=== PATIENT | male | born 1955 | race Hispanic/Latino ===

== ENCOUNTER 2019-12-20 17:21 | Emergency (ER) | payer OTHER ==
--- OUTSIDE RECORDS SUMMARY | 2019-12-20 17:23 | XMS REPORT | Clinical Summary ---
:1955 Author Organization [facility] Address [address] [place] [address] Care Team Providers Name Role Phone Patric Zimmerman MD Primary Care Provider Allergies No Known Allergies Medications Medication Sig Dispensed Refills Start Date End Date Status carvedilol (COREG) Take 12.5 mg by 0 Active 6.25 MG tablet mouth 2 (two) times a day. cinacalcet Take 60 mg by mouth 0 08/02/2016 Active (SENSIPAR) 30 MG daily. tablet furosemide (LASIX) Take 20 mg by mouth. 0 08/02/2016 Active 20 mg tablet mycophenolate 500 mg. 0 06/29/2016 Activ e (CELLCEPT) 500 mg tablet predniSONE Take 5 mg by mouth. 0 Active (DELTASONE) 10 mg tablet SODIUM BICARBONATE, by Miscellaneous 0 Active BULK, MISC route 3 teaspoons daily. sulfamethoxazole-tri Take 1 tablet by 0 Active methoprim (BACTRIM mouth. SS) 400-80 mg per tablet tacrolimus (PROGRAF) 2 (two) times daily 0 7 Active 0.5 MG capsule 1.5mg in am and 2.0mg in pm. 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
--- OUTSIDE RECORDS SUMMARY | 2019-12-20 17:23 | XMS REPORT | Clinical Summary ---
:1955 Author Organization [facility] Address [address] [place] [address] Care Team Providers Name Role Phone Ilana Duarte Unavailable Patric Zimmerman Unavailable [phone] Papi Zimmerman Primary Care Provider Allergies No Known Allergies Medications Medication Sig Dispensed Refills Start Date End Date Status torsemide (DEMADEX) Take 1 tablet 90 tablet 3 07/28/2017 Active 10 MG tablet (10 mg total) by mouth daily. metoprolol Take 1 tablet 90 tablet 3 08/24/2017 Acti ve (TOPROL-XL) 50 MG 24 (50 mg total) by hr mouth daily. tabletIndications: S/P kidney transplant NIFEdipine (ADALAT Take 1 tablet 60 tablet 0 04/13/2018 Active CC) 60 MG 24 hr (60 mg total) by tabletIndications: mouth 2 (two) S/P kidney times daily with transplant breakfast and dinner. predniSONE Take 1 tablet (5 90 tablet 3 06/07/2018 A ctive (DELTASONE) 5 MG mg total) by tabletIndications: mouth daily Z S/P kidney 94.0 S/P kidney transplant transplant. mycophenolate Take 2 tablets 360 tablet 3 06/07/2018 Active (CELLCEPT) 500 mg (1,000 mg total) tablet by mouth 2 (two) times daily. tacrolimus (PROGRAF) Take 3 capsules (1.5 mg tota l) by mouth 2 (two) times daily 1.5mg in am and 1.5 360 capsule 3 06/07/2018 Active 0.5 MG capsule mg in pm. cinacalcet Take 1 tablet 90 tablet 3 01/11/2018 01/11/2019 Exp ired (SENSIPAR) 90 MG (90 mg total) by tablet mouth daily. Active Problems Problem Noted Date Nausea & vomiting 10/29/2016 Hypertensive emergency without congestive heart failur e 10/28/2016 Tension type headache 10/28/2016 Hypercalcemia 10/28/2016 Diarrhea 06/14/2016 Last Assessment & Plan: Complains of diarrhea for 2 weeks. We wi ll decrease his cellcept to 500 mg po BID. Send stool for culture and cdiff and vir al studies. S/P kidney transplant 06/14/2016 Last Assessment & Plan: He is doing well s/p kidney transplant o n 04/18/2016. He is producing adequate amounts of urine and his creatinine has been steady. Labs pending for today. Hyperkalemia 04/26/2016 Last Assessment & Plan: Potassium of 5.0 this am. Will continue to monitor. Constipation 04/26/2016 Last Assessment & Plan: Resolved. Immunosuppression 04/26/2016 Last Assessment & Plan: He denies headaches or tremors with his immunosuppression. We will adjust his dose according to his levels. Pre-op testing 04/19/2016 Acute pulmonary insufficiency following nonthoracic ruiz rgery 04/18/2016 Anemia, chronic disease 04/18/2016 Kidney transplant recipient 04/17/2016 Last Assessment & Plan: He is s/p kidney transplant from 016. He is producing adequate amounts of urine and his creatinine is improving. N o evidence of recurrent disease. Juventino removed in clinic today. Polycystic kidney disease 04/14/2015 Last Assessment & Plan: Diagnosed in 2003. On HD since that time . Hemorrhoids 04/14/2015 Last Assessment & Plan: He was instructed to purchase over the Nextiva hemorrhoid cream. ESRD (end stage renal disease) 04/14/2015 Last Assessment & Plan: No evidence of recurrent disease at this time. S/p nephrectomy 04/14/2015 Last Assessment & Plan: Patient underwent bilateral nephrectomie s in 2008 for polycystic kidney disease. Pre-transplant evaluation for chronic kidney disease 1 06/15/2014 Last Assessment & Plan: Patient needs to have stress test and CT A of the pelvis and lower extremities. These tests are scheduled for 04/16. He has no other major risk factors for transplantation. Encounters Date Type Specialty Care Team Description 05/07/2019 Documentation Transplant Eliza Simms RN after 12/19/2018 Family History Medical History Relation Name Comments Unremarkable Brother Unremarkable Daughter Unremarkable Father Unremarkable Maternal Aunt Unremarkable Maternal Grandfather Unremarkable Maternal Grandmother Unremarkable Maternal Uncle Cancer Mother Unremarkable Paternal Aunt Unremarkable Paternal Grandfather Unremarkable Paternal Grandmother Unremarkable Paternal Uncle Unremarkable Sister Kidney disease Son Relation Name Status Comments Brother Alive Daughter Alive Father Maternal Aunt Alive Maternal Grandfather Maternal Grandmother Maternal Uncle Mother Alive Paternal Aunt Alive Paternal Grandfather Paternal Grandmother Paternal Uncle Alive Sister Alive Son Alive Social History Tobacco Use Types Packs/Day Years Used Date Never Smoker Alcohol Use Drinks/Week oz/Week Comments No Sex Assigned at Date Recorded Not on file Job Start Date Occupation Industry Not on file Not on file Not on file Travel History Travel Start Travel End No recent travel history available. Last Filed Vital Signs Not on file Plan of Treatment Health Maintenance Due Date Last Done Comments MEDICARE ANNUAL WELLNESS (YEAR 2 or FIRST 10/30/2004 YEAR if no IPPE) COLON CANCER SCREENING ANNUAL FOBT 10/30/2017 10/30/2016 LIPID PANEL 04/17/2019 04/17/2016, 04/16/2015 PNEUMOCOCCAL 65+ HIGH/HIGHEST RISK (1 of 2 2019 - PCV13) INFLUENZA VACCINE (#1) 2019 Implants Implanted Type Area Board Setter Device Shelf Model / Serial / Identifier Expiration Lot Date Stent Uret Polaris [id number] - Sgtin [id number] Uro Left: STAFFORD 08/23/2018 [id number] / Implanted: Qty: 1 on 04/18/2016 by Viky Kearns Aba, MD St ent [employer] SCI:UROLOGY/GY GTIN [id number] / NECOLOGY [id number] Stent Uret Polaris [id number] - Sgtin [id number] Uro Left: [employer]FFORD 08/23/2018 [id number] / Implanted: Qty: 1 on 04/18/2016 by Viky Kearns Aba, MD [employer] SCI:UROLOGY/GY GTIN [id number] / NECOLOGY [id number] Results Not on fileafter 12/19/2018 Insurance Payer Benefit Plan / Group Subscriber ID Type Phone A ddress MEDICARE MEDICARE A B xxxxxxxxxxx Medicare CIGNA - MGD CARE CIGNA HMO/POS/OPEN ACCESS xxxxxxxxxxx HMO/POS Advance Directives For more information, please contact:[address] [phone] Code Status Date Activated Date Inactivated Comments Full Code 10/27/2016 7:43 PM 10/31/2016 3:11 PM This code status was determined by: Patient Full Code 04/18/2016 11:10 AM 04/22/2016 7:42 PM This code status was determined by: Patient Full Code 04/17/2016 3:20 PM 04/18/2016 11:10 AM This code status was determined by: Patient Full Code 06/20/2015 1:07 PM 06/23/2015 9:55 PM This code status was determined by: Patient
--- OUTSIDE RECORDS SUMMARY | 2019-12-20 17:29 | XMS REPORT | Continuity of Care Document ---
:1955 Author Organization [facility] t Address [address] [place] [address] Dr. Mckeon. [address] [place] [address] Care Team Providers Name Role Phone Elsie QUINONES, Patric Primary Care Physician Mendez BARILLAS, Eliza Attending Clinician Unavailable NAINA GOLDBERG Attending Clinician Unavailable GONZALEZ MILLER Attending Clinician Unavailable MICKI PAULSON Attending Clinician Unavailable VALERIE CAMPBELL Admitting Clinician Unavailable Latesha GOLDBERG Admitting Clinician Unavailable Payers Payer Name Policy Policy Number Effective Expiration Source Type Date Date MEDICAREMEDICARE A xxxxxxxxxxx [facility] CIGNA - MGD CARECIGNA xxxxxxxxxxx [facility] H[facility]/POS/OPEN [facility] Problems Condition Condition Condition Status Onset Resolution Last Treating Co mments Source Name Details Category Date Date Treatment Clinician Date Nausea & Nausea & Disease Active [facility] Center Hypertensi Hypertensi Disease Active [facility] ve ve 10-28 [facility] - emergency emergency 00:00: Medi tamela without without 00 Center congestive congestive heart heart failure failure Tension Tension Disease Active [facility] type type 10-28 [facility] - headache headache 00:00: Medica l 00 Center Hypercalce Hypercalce Disease Active [facility] donald donald 10-28 [facility] 00 Center Aneurysm Aneurysm Disease Active [place] of of 5-23 [facility] arterioven arterioven 00:00: st ous ous 00 fistula fistula Diarrhea Diarrhea Disease [facility] t & Plan: Medical 00 Complains Center of diarrhea for 2 weeks. We will decrease his cellcept to 500 mg po BID. Send stool for culture and cdiff and viral studies. S/P kidney S/P kidney Disease Active Last [facility]: t & Plan: Medical 00 He is Center doing well s/p kidney transplan t on 6. He is producing adequate amounts of urine and his creatinin e has been steady. Labs pending for today. Hyperkalem Hyperkalem Disease Active 2015-[address] ia ia 06-[facility] - 00:00: t & Plan: Medical 00 Potassium Center of 5.0 this am. Will continue to monitor. Constipati Constipati Disease Active 2015-[address] on [facility] 06[facility] [place] - 00:00: t & Plan: Medical 00 Resolved. Center Immunosupp Immunosupp Disease Active 2015-[address] ression ression 06-[facility] [place] - 00:00: t & Plan: Medical 00 He denies Center headaches or tremors with his immunosup pression. We will adjust his dose according to his levels. Pre-op Pre-op Disease Active 2015-[address] [facility] St testing testing 06-20 [facility] - 00:00: Medical 00 Center Acute Acute Disease Active 2015-05 [facility] pulmonary pulmonary 06-19 [facility] s - insufficie insufficie 00:00: Me dical ncy ncy 00 Center following following nonthoraci nonthoraci c surgery c surgery Anemia, Anemia, Disease Active 2015-[address] [facility] St chronic chronic 06-19 [place] - disease disease 00:00: Medical 00 Center Kidney Kidney Disease Active 2015-05 Last [facility] St transplant transplant 06-18 Yo Mckeon - recipient recipient 00:00: t & Plan: M edical 00 He is s/p Center kidney transplan t from 6. He is producing adequate amounts of urine and his creatinin e is improving . No evidence of recurrent disease. Street removed in clinic today. Polycystic Polycystic Disease Active 2014-05 Last [facility] St kidney kidney 2-[facility] [place] - disease disease 00:00: t & Plan: Medic al 00 Diagnosed Center in 2003. On HD since that time. Hemorrhoid Hemorrhoid Disease Active 2014-05 [address] [facility] St s s 2-15 Ass[facility]men [facility] - 00:00: t & Plan: Medical 00 He was Center instructe d to purchase over the counter hemorrhoi d cream. 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 S/p S/p Disease Active 2014-05 [facility] t & Plan: Medical 00 Patient Center underwent bilateral nephrecto mies in 2008 for polycysti c kidney disease. Pre-transp Pre-transp Disease Active 2014-05 [facility]ant 2[facility] 00:00: t & Plan: Medical for for 00 Patient Center chronic chronic needs to kidney kidney have disease disease stress test and CTA of the pelvis and lower extremiti es. These tests are scheduled for 04/16. He has no other major risk factors for transplan tation. Allergies, Adverse Reactions, Alerts This patient has no known allergies or adverse reactions. Family History Family Member Diagnosis Comments Start Date Stop Date Source Natural brother Unremarkable [facility] Natural daughter Unremarkable [facility] Natural father Unremarkable [facility] Maternal aunt Unremarkable [facility] Maternal grandfather Unremarkable [facility] Maternal grandmother Unremarkable [facility] Maternal uncle Unremarkable [facility] Natural mother [facility] Paternal aunt Unremarkable [facility] Paternal grandfather Unremarkable [facility] Paternal grandmother Unremarkable [facility] Paternal uncle Unremarkable [facility] Natural sister Unremarkable [facility] Natural son Kidney disease [facility] Social History Social Habit Start Date Stop Date Quantity Comments Source Sex Assigned At [facility] Alcohol intake 2016-09-22 2016-09-22 Current drinker [facility] 00:00:00 00:00:00 of alcohol (finding) Alcohol Comment 2016-09-20 2016-09-20 very rare Neri Pascual ethodist 00:00:00 00:00:00 Smoking Status Start Date Stop Date Source Never smoker [facility] edical [place] Medications Ordered Filled Start Stop Current Ordering Indication Dosage Frequency Signature Comments Components Source Medication Medication Date Date Medication? Clinician (SIG) Name Name predniSONE 2018- Yes S/P kidney 5mg QD Take [address] (DELTASONE) 2-07 transplant tablet (5 [facility] - 5 MG tablet 00:00: mg total) M edical 00 by mouth Center daily Z 94.0 S/P kidney transplant . mycophenola Yes 1000mg Q.5D Take [address] te 2-07 tablets [facility] - (CELLCEPT) 00:00: (1,000 mg Me dical 500 mg 00 total) by Center tablet mouth 2 (two) times daily. tacrolimus Yes 1.5mg Q.5D Take [address] (PROGRAF) 2-07 capsules [facility] - 0.5 MG 00:00: (1.5 mg Medical capsule 00 total) by Center mouth 2 (two) times daily 1.5mg in am and 1.5mg in pm. NIFEdipine 2017-05 Yes S/P kidney 60mg Take [address] (ADALAT CC) 2-14 transplant tablet (60 [facility] - 60 MG 24 hr 00:00: mg total) M edical tablet 00 by mouth 2 Center (two) times daily with breakfast and dinner. cinacalcet 2017-0 2019- No 90mg QD Take [address] (SENSIPAR) 9-13 09-13 tablet (90 Marti kes - 90 MG 00:00: 23:59 mg total) Medica l tablet 00 :00 by mouth Center daily. metoprolol Yes S/P kidney 50mg QD Take [address] (TOPROL-XL) 4-26 transplant tablet (50 [facility] - 50 MG 24 hr 00:00: mg total) M edical tablet 00 by mouth Center daily. torsemide 2017- Yes 10mg QD Take [address] (DEMADEX) 3-30 tablet (10 Luke s - 10 MG 00:00: mg total) Medical tablet 00 by mouth Center daily. carvedilol 2017- Yes 12.5mg Q.5D Take 12.5 He (COREG) 5-26 mg by Methodi 6.25 MG 14:37: mouth 2 st tablet 16 (two) times a day. predniSONE 2017- Yes 5mg Take 5 mg [place] (DELTASONE) 5-26 by mouth. Met hodi 10 mg 14:37: st tablet 16 SODIUM 2016- Yes by He BICARBONATE 5-26 Miscellane Me thodi , BULK, 14:37: ous route st MISC 16 3 teaspoons daily. sulfamethox 2016- Yes 1{tbl} Take 1 [place] azole-trime 5-26 tablet by Met hodi thoprim 14:37: mouth. st (BACTRIM 16 SS) 400-80 mg per tablet cinacalcet Yes 60mg QD Take 60 mg [place] (SENSIPAR) 4-04 by mouth Metho di 30 MG 00:00: daily. st tablet 00 furosemide 2016- Yes 20mg Take 20 mg [place] (LASIX) 20 4-04 by mouth. Meth carlos mg tablet 00:00: st 00 mycophenola 2017- Yes 500mg 500 mg. [place] te 3-01 [facility]i (CELLCEPT) 00:00: st 500 mg 00 tablet tacrolimus Yes 2 (two) [place] (PROGRAF) 3-01 times Methodi 0.5 MG 00:00: daily st capsule 00 1.5mg in am and 2.0mg in pm. Procedures This patient has no known procedures. Plan of Care Planned Activity Planned Date Details Comments Source Future Scheduled 2020-01-30 INFLUENZA VACCINE [facility] Test 00:00:00 [code = INFLUENZA VACCINE] Future Scheduled 2019-12-31 INFLUENZA VACCINE (#1) [facility] Test 00:00:00 [code = INFLUENZA Medical Ce nter VACCINE (#1)] Future Scheduled 2019 65+ PNEUMOCOCCAL [facility] Test 00:00:00 VACCINE (1 of 2 - PCV13) [code = 65+ PNEUMOCOCCAL VACCINE (1 of 2 - PCV13)] Future Scheduled 2019 [address]CC[address] Test 00:00:00 HIGH/HIGHEST RISK (1 Medical Center of 2 - PCV13) [code = PNEUMOCOCCAL 65+ HIGH/HIGHEST RISK (1 of 2 - PCV13)] Future Scheduled 2019-04-[address] [facility] - Test 00:00:00 (procedure) [code = Medical Center [id number]] Future Scheduled 2017-10-[address] [facility] - Test 00:00:00 malignant neoplasm of [facility] colon (procedure) [code = 791362186] Future Scheduled 2004-10-[address] [facility] - Test 00:00:00 WELLNESS (YEAR 2 or Medical Center FIRST YEAR if no IPPE) [code = MEDICARE ANNUAL WELLNESS (YEAR 2 or FIRST YEAR if no IPPE)] Future Scheduled 2004 COLONOSCOPY SCREENING [place] [facility] Test 00:00:00 [code = COLONOSCOPY SCREENING] Future Scheduled 2004 SHINGLES VACCINES (#1) [place] [facility] Test 00:00:00 [code = SHINGLES VACCINES (#1)] Results Test Description Test Time Test Comments Results Result Comments Source TACROLIMUS LEVEL 2018-06-07 13:01:00 Test Item Value Reference Range Interpretation Comme nts TACROLIMUS BLOOD (BEAKER) (test code = 657) 7.9 ng/mL 10.0-20.0 L URINALYSIS W/ REFLEX URINE [id number] 10:00:00 Test Item Value Reference Range Interpretation Comments COLOR (BEAKER) (test code = 470) Yellow CLARITY (BEAKER) (test code = 469) Clear SPECIFIC GRAVITY UA (BEAKER) (test 1.020 1.001-1.035 code = 468) PH UA (BEAKER) (test code = 467) 5.5 5.0-8.0 PROTEIN UA (BEAKER) (test code = 10 mg/dL Negative A 464) GLUCOSE UA (BEAKER) (test code = Negative Negative 365) KETONES UA (BEAKER) (test code = Negative Negative 371) BILIRUBIN UA (BEAKER) (test code = Negative Negative 462) BLOOD UA (BEAKER) (test code = 461) Negative Negative NITRITE UA (BEAKER) (test code = Negative Negative 465) LEUKOCYTE ESTERASE UA (BEAKER) Negative Negative (test code = 466) UROBILINOGEN UA (BEAKER) (test code 2.0 mg/dL 0.2-1.0 H = 463) RBC UA (BEAKER) (test code = 519) < /HPF WBC UA (BEAKER) (test code = 520) 2 /HPF MUCUS (BEAKER) (test code = 1574) Rare SQUAMOUS EPITHELIAL (BEAKER) (test 1 /HPF code = 516) SOURCE(BEAKER) (test code = 2795) [id number] 09:49:00 Test Item Value Reference Range Interpretation Comments PHOSPHORUS (BEAKER) (test code = 2.3 mg/dL 2.3-4.7 604) COMPREHENSIVE METABOLIC [id number] 09:49:00 Test Item Value Reference Range Interpretation Comments TOTAL PROTEIN 7.5 gm/dL 6.0-8.3 (BEAKER) (test code = 770) ALBUMIN (BEAKER) 4.4 g/dL 3.5-5.0 (test code = 1145) ALKALINE PHOSPHATASE 111 U/L 40-150 (BEAKER) (test code = 346) BILIRUBIN TOTAL 0.9 mg/dL 0.2-1.2 (BEAKER) (test code = 377) SODIUM (BEAKER) (test 138 meq/L 136-145 code = 381) POTASSIUM (BEAKER) 4.4 meq/L 3.5-5.1 (test code = 379) CHLORIDE (BEAKER) 109 meq/L 98-107 H (test code = 382) CO2 (BEAKER) (test 20 meq/L 22-29 L code = 355) BLOOD UREA NITROGEN 24 mg/dL 7-21 H (BEAKER) (test code = 354) CREATININE (BEAKER) 1.49 mg/dL 0.57-1.25 H (test code = 358) GLUCOSE RANDOM 90 mg/dL 70-105 (BEAKER) (test code = 652) CALCIUM (BEAKER) 9.8 mg/dL 8.4-10.2 (test code = 697) AST (SGOT) (BEAKER) 14 U/L 5-34 (test code = 353) ALT (SGPT) (BEAKER) 9 U/L 6-55 (test code = 347) EGFR (BEAKER) (test 47 mL/min/1.73 ESTIMA AVA GFR IS code = 1092) sq m NOT ACCURATE CREATININE CLEARANCE IN PREDICTING GLOMERULAR FILTRATION RATE . ESTIMATED GFR I S NOT APPLICABLE FOR DIALYSIS PATIEN TS. LACTATE DEHYDROGENASE (LDH)2018-06-07 09:49:00 Test Item Value Reference Range Interpretation Comments LACTATE DEHYDROGENASE (BEAKER) (test 176 U/L 125-220 code = 635) CBC W/PLT COUNT & AUTO [id number] 09:24:00 Test Item Value Reference Range Interpretation Comments WHITE BLOOD CELL COUNT (BEAKER) 6.5 K/ L 3.5-10.5 (test code = 775) RED BLOOD CELL COUNT (BEAKER) 5.37 M/ L 4.63-6.08 (test code = 761) HEMOGLOBIN (BEAKER) (test code = 15.5 GM/DL 13.7-17.5 410) HEMATOCRIT (BEAKER) (test code = 47.6 % 40.1-51.0 411) MEAN CORPUSCULAR VOLUME (BEAKER) 88.6 fL 79.0-92.2 (test code = 753) MEAN CORPUSCULAR HEMOGLOBIN 28.9 pg 25.7-32.2 (BEAKER) (test code = 751) MEAN CORPUSCULAR HEMOGLOBIN CONC 32.6 GM/DL 32.3-36.5 (BEAKER) (test code = 752) RED CELL DISTRIBUTION WIDTH 13.4 % 11.6-14.4 (BEAKER) (test code = 412) PLATELET COUNT (BEAKER) (test 188 K/CU MM 150-450 code = 756) MEAN PLATELET VOLUME (BEAKER) 11.2 fL 9.4-12.4 (test code = 754) NUCLEATED RED BLOOD CELLS 0 /100 WBC 0-0 (BEAKER) (test code = 413) NEUTROPHILS RELATIVE PERCENT 55 % (BEAKER) (test code = 429) LYMPHOCYTES RELATIVE PERCENT 33 % (BEAKER) (test code = 430) MONOCYTES RELATIVE PERCENT 10 % (BEAKER) (test code = 431) EOSINOPHILS RELATIVE PERCENT 1 % (BEAKER) (test code = 432) BASOPHILS RELATIVE PERCENT 1 % (BEAKER) (test code = 437) NEUTROPHILS ABSOLUTE COUNT 3.55 K/ L 1.78-5.38 (BEAKER) (test code = 670) LYMPHOCYTES ABSOLUTE COUNT 2.15 K/ L 1.32-3.57 (BEAKER) (test code = 414) MONOCYTES ABSOLUTE COUNT (BEAKER) 0.64 K/ L 0.30-0.82 (test code = 415) EOSINOPHILS ABSOLUTE COUNT 0.07 K/ L 0.04-0.54 (BEAKER) (test code = 416) BASOPHILS ABSOLUTE COUNT (BEAKER) 0.04 K/ L 0.01-0.08 (test code = 417) IMMATURE GRANULOCYTES-RELATIVE 0 % 0-1 PERCENT (BEAKER) (test code = 2801) BK VIRUS PCR, [id number] 15:03:00 Test Item Value Reference Range Interpretation Comments BK VIRUS, PLASMA, NEG Negative or below the (BEAKER) (test code = linear range of the 2145) assay (<1,000 copies/mL) Patients may have replicating BK Virus which is of no clinical significance. Viral load measurements are helpful to identify BK Virus replication of potential clinical significance. Consensus recommendations have been published of threshold values for the presumptive diagnosis of polyomavirus-associated nephropathy (Transplantation 2005;79:0713-3800).A BK Virus load greater than 5,000-10,000 copies/mL in the plasma is consistent with the presumptive diagnosis of polyoma-associated nephropathy in renal transplant recipients.BK Virus DNA was assessed using quantitative polymerase chain reaction and fluorescent monitoring of a specific hybridized probe. Genetic variation and other factors can affect the accuracy of nucleic acid testing. Therefore, the results should be interpreted in light of clinical data.This test was developed and its performance characteristics determined by the [facility] Pathology Department, Section of Molecular Pathology. It has not been cleared or approved by the U.S. Food and Drug Administration (FDA). Since FDA approval is not required for clinicaluse of the test, validation was done as required by the Clinical Laboratory Improvement Amendments of 1988.TACROLIMUS LEVEL 2017-10-12 11:41:00 Test Item Value Reference Range Interpretation Comments TACROLIMUS BLOOD (BEAKER) (test 5.7 ng/mL 10.0-20.0 L code = 657) URINALYSIS W/ REFLEX URINE [id number] 10:12:00 Test Item Value Reference Range Interpretation Comments COLOR (BEAKER) (test code = 470) Yellow CLARITY (BEAKER) (test code = 469) Clear SPECIFIC GRAVITY UA (BEAKER) (test 1.018 1.001-1.035 code = 468) PH UA (BEAKER) (test code = 467) 5.5 5.0-8.0 PROTEIN UA (BEAKER) (test code = Negative Negative 464) GLUCOSE UA (BEAKER) (test code = Negative Negative 365) KETONES UA (BEAKER) (test code = Negative Negative 371) BILIRUBIN UA (BEAKER) (test code = Negative Negative 462) BLOOD UA (BEAKER) (test code = 461) Negative Negative NITRITE UA (BEAKER) (test code = Negative Negative 465) LEUKOCYTE ESTERASE UA (BEAKER) Negative Negative (test code = 466) UROBILINOGEN UA (BEAKER) (test code 0.2 mg/dL 0.2-1.0 = 463) RBC UA (BEAKER) (test code = 519) < /HPF WBC UA (BEAKER) (test code = 520) 2 /HPF SQUAMOUS EPITHELIAL (BEAKER) (test < /HPF code = 516) SOURCE(BEAKER) (test code = 2795) [id number] 09:58:00 Test Item Value Reference Range Interpretation Comments PHOSPHORUS (BEAKER) (test code = 2.8 mg/dL 2.3-4.7 604) COMPREHENSIVE METABOLIC [id number] 09:58:00 Test Item Value Reference Range Interpretation Comments TOTAL PROTEIN 7.0 gm/dL 6.0-8.3 (BEAKER) (test code = 770) ALBUMIN (BEAKER) 4.2 g/dL 3.5-5.0 (test code = 1145) ALKALINE PHOSPHATASE 141 U/L 40-150 (BEAKER) (test code = 346) BILIRUBIN TOTAL 0.4 mg/dL 0.2-1.2 (BEAKER) (test code = 377) SODIUM (BEAKER) (test 141 meq/L 136-145 code = 381) POTASSIUM (BEAKER) 4.8 meq/L 3.5-5.1 (test code = 379) CHLORIDE (BEAKER) 111 meq/L 98-107 H (test code = 382) CO2 (BEAKER) (test 20 meq/L 22-29 L code = 355) BLOOD UREA NITROGEN 33 mg/dL 7-21 H (BEAKER) (test code = 354) CREATININE (BEAKER) 1.43 mg/dL 0.57-1.25 H (test code = 358) GLUCOSE RANDOM 92 mg/dL 70-105 (BEAKER) (test code = 652) CALCIUM (BEAKER) 10.1 mg/dL 8.4-10.2 (test code = 697) AST (SGOT) (BEAKER) 15 U/L 5-34 (test code = 353) ALT (SGPT) (BEAKER) 12 U/L 6-55 (test code = 347) EGFR (BEAKER) (test 50 mL/min/1.73 ESTIMA AVA GFR IS code = 1092) sq m NOT ACCURATE CREATININE CLEARANCE IN PREDICTING GLOMERULAR FILTRATION RATE . ESTIMATED GFR I S NOT APPLICABLE FOR DIALYSIS PATIEN TS. LACTATE DEHYDROGENASE (LDH)2017-10-12 09:58:00 Test Item Value Reference Range Interpretation Comments LACTATE DEHYDROGENASE (BEAKER) (test 157 U/L 125-220 code = 635) CBC W/PLT COUNT & AUTO [id number] 08:56:00 Test Item Value Reference Range Interpretation Comments WHITE BLOOD CELL COUNT (BEAKER) 6.4 K/ L 3.5-10.5 (test code = 775) RED BLOOD CELL COUNT (BEAKER) 5.00 M/ L 4.63-6.08 (test code = 761) HEMOGLOBIN (BEAKER) (test code = 14.1 GM/DL 13.7-17.5 410) HEMATOCRIT (BEAKER) (test code = 44.9 % 40.1-51.0 411) MEAN CORPUSCULAR VOLUME (BEAKER) 89.8 fL 79.0-92.2 (test code = 753) MEAN CORPUSCULAR HEMOGLOBIN 28.2 pg 25.7-32.2 (BEAKER) (test code = 751) MEAN CORPUSCULAR HEMOGLOBIN CONC 31.4 GM/DL 32.3-36.5 L (BEAKER) (test code = 752) RED CELL DISTRIBUTION WIDTH 14.1 % 11.6-14.4 (BEAKER) (test code = 412) PLATELET COUNT (BEAKER) (test 176 K/CU MM 150-450 code = 756) MEAN PLATELET VOLUME (BEAKER) 11.2 fL 9.4-12.4 (test code = 754) NUCLEATED RED BLOOD CELLS 0 /100 WBC 0-0 (BEAKER) (test code = 413) NEUTROPHILS RELATIVE PERCENT 56 % (BEAKER) (test code = 429) LYMPHOCYTES RELATIVE PERCENT 35 % (BEAKER) (test code = 430) MONOCYTES RELATIVE PERCENT 8 % (BEAKER) (test code = 431) EOSINOPHILS RELATIVE PERCENT 1 % (BEAKER) (test code = 432) BASOPHILS RELATIVE PERCENT 1 % (BEAKER) (test code = 437) NEUTROPHILS ABSOLUTE COUNT 3.58 K/ L 1.78-5.38 (BEAKER) (test code = 670) LYMPHOCYTES ABSOLUTE COUNT 2.22 K/ L 1.32-3.57 (BEAKER) (test code = 414) MONOCYTES ABSOLUTE COUNT (BEAKER) 0.49 K/ L 0.30-0.82 (test code = 415) EOSINOPHILS ABSOLUTE COUNT 0.09 K/ L 0.04-0.54 (BEAKER) (test code = 416) BASOPHILS ABSOLUTE COUNT (BEAKER) 0.04 K/ L 0.01-0.08 (test code = 417) IMMATURE GRANULOCYTES-RELATIVE 0 % 0-1 PERCENT (BEAKER) (test code = 2801) TACROLIMUS [id number] 10:49:00 Test Item Value Reference Range Interpretation Comments TACROLIMUS BLOOD (BEAKER) (test 5.3 ng/mL 10.0-20.0 L code = 657) COMPREHENSIVE METABOLIC [id number] 09:17:00 Test Item Value Reference Range Interpretation Comments TOTAL PROTEIN 7.6 gm/dL 6.0-8.3 (BEAKER) (test code = 770) ALBUMIN (BEAKER) 4.5 g/dL 3.5-5.0 (test code = 1145) ALKALINE PHOSPHATASE 155 U/L 40-150 H (BEAKER) (test code = 346) BILIRUBIN TOTAL 0.6 mg/dL 0.2-1.2 (BEAKER) (test code = 377) SODIUM (BEAKER) 140 meq/L 136-145 (test code = 381) POTASSIUM (BEAKER) 4.9 meq/L 3.5-5.1 (test code = 379) CHLORIDE (BEAKER) 107 meq/L 98-107 (test code = 382) CO2 (BEAKER) (test 23 meq/L 22-29 code = 355) BLOOD UREA NITROGEN 32 mg/dL 7-21 H (BEAKER) (test code = 354) CREATININE (BEAKER) 1.90 mg/dL 0.57-1.25 H (test code = 358) GLUCOSE RANDOM 98 mg/dL 70-105 (BEAKER) (test code = 652) CALCIUM (BEAKER) 10.9 mg/dL 8.4-10.2 H (test code = 697) AST (SGOT) (BEAKER) 13 U/L 5-34 (test code = 353) ALT (SGPT) (BEAKER) 12 U/L 6-55 (test code = 347) EGFR (BEAKER) (test mL/min/1.73 INSUFFIC IENT code = 1092) sq m CLINICAL DATA T O CALCULATE ESTIM ATED GFR. [id number] 09:12:00 Test Item Value Reference Range Interpretation Comments PHOSPHORUS (BEAKER) (test code = 3.0 mg/dL 2.3-4.7 604) LACTATE DEHYDROGENASE (LDH)2017-08-24 09:12:00 Test Item Value Reference Range Interpretation Comments LACTATE DEHYDROGENASE (BEAKER) (test 126 U/L 125-220 code = 635) URINALYSIS W/ REFLEX URINE [id number] 08:53:00 Test Item Value Reference Range Interpretation Comments COLOR (BEAKER) (test code = 470) Yellow CLARITY (BEAKER) (test code = 469) Clear SPECIFIC GRAVITY UA (BEAKER) (test 1.021 1.001-1.035 code = 468) PH UA (BEAKER) (test code = 467) 5.5 5.0-8.0 PROTEIN UA (BEAKER) (test code = 20 mg/dL Negative A 464) GLUCOSE UA (BEAKER) (test code = Negative Negative 365) KETONES UA (BEAKER) (test code = Negative Negative 371) BILIRUBIN UA (BEAKER) (test code = Negative Negative 462) BLOOD UA (BEAKER) (test code = 461) Negative Negative NITRITE UA (BEAKER) (test code = Negative Negative 465) LEUKOCYTE ESTERASE UA (BEAKER) Negative Negative (test code = 466) UROBILINOGEN UA (BEAKER) (test code 0.2 mg/dL 0.2-1.0 = 463) RBC UA (BEAKER) (test code = 519) 0 /HPF WBC UA (BEAKER) (test code = 520) 2 /HPF SQUAMOUS EPITHELIAL (BEAKER) (test 1 /HPF code = 516) SOURCE(BEAKER) (test code = 2795) CBC W/PLT COUNT & AUTO [id number] 08:25:00 Test Item Value Reference Range Interpretation Comments WHITE BLOOD CELL COUNT (BEAKER) 5.9 K/ L 3.5-10.5 (test code = 775) RED BLOOD CELL COUNT (BEAKER) 5.29 M/ L 4.63-6.08 (test code = 761) HEMOGLOBIN (BEAKER) (test code = 15.2 GM/DL 13.7-17.5 410) HEMATOCRIT (BEAKER) (test code = 47.4 % 40.1-51.0 411) MEAN CORPUSCULAR VOLUME (BEAKER) 89.6 fL 79.0-92.2 (test code = 753) MEAN CORPUSCULAR HEMOGLOBIN 28.7 pg 25.7-32.2 (BEAKER) (test code = 751) MEAN CORPUSCULAR HEMOGLOBIN CONC 32.1 GM/DL 32.3-36.5 L (BEAKER) (test code = 752) RED CELL DISTRIBUTION WIDTH 14.3 % 11.6-14.4 (BEAKER) (test code = 412) PLATELET COUNT (BEAKER) (test 195 K/CU MM 150-450 code = 756) MEAN PLATELET VOLUME (BEAKER) 10.6 fL 9.4-12.4 (test code = 754) NUCLEATED RED BLOOD CELLS 0 /100 WBC 0-0 (BEAKER) (test code = 413) NEUTROPHILS RELATIVE PERCENT 62 % (BEAKER) (test code = 429) LYMPHOCYTES RELATIVE PERCENT 28 % (BEAKER) (test code = 430) MONOCYTES RELATIVE PERCENT 7 % (BEAKER) (test code = 431) EOSINOPHILS RELATIVE PERCENT 2 % (BEAKER) (test code = 432) BASOPHILS RELATIVE PERCENT 1 % (BEAKER) (test code = 437) NEUTROPHILS ABSOLUTE COUNT 3.67 K/ L 1.78-5.38 (BEAKER) (test code = 670) LYMPHOCYTES ABSOLUTE COUNT 1.67 K/ L 1.32-3.57 (BEAKER) (test code = 414) MONOCYTES ABSOLUTE COUNT (BEAKER) 0.44 K/ L 0.30-0.82 (test code = 415) EOSINOPHILS ABSOLUTE COUNT 0.09 K/ L 0.04-0.54 (BEAKER) (test code = 416) BASOPHILS ABSOLUTE COUNT (BEAKER) 0.04 K/ L 0.01-0.08 (test code = 417) IMMATURE GRANULOCYTES-RELATIVE 1 % 0-1 PERCENT (BEAKER) (test code = 2801) TACROLIMUS [id number] 12:47:00 Test Item Value Reference Range Interpretation Comments TACROLIMUS BLOOD (BEAKER) (test 6.7 ng/mL 10.0-20.0 L code = 657) COMPREHENSIVE METABOLIC [id number] 08:34:00 Test Item Value Reference Range Interpretation Comments TOTAL PROTEIN 7.0 gm/dL 6.0-8.3 (BEAKER) (test code = 770) ALBUMIN (BEAKER) 4.2 g/dL 3.5-5.0 (test code = 1145) ALKALINE PHOSPHATASE 134 U/L 40-150 (BEAKER) (test code = 346) BILIRUBIN TOTAL 0.5 mg/dL 0.2-1.2 (BEAKER) (test code = 377) SODIUM (BEAKER) 138 meq/L 136-145 (test code = 381) POTASSIUM (BEAKER) 4.5 meq/L 3.5-5.1 (test code = 379) CHLORIDE (BEAKER) 112 meq/L 98-107 H (test code = 382) CO2 (BEAKER) (test 20 meq/L 22-29 L code = 355) BLOOD UREA NITROGEN 36 mg/dL 7-21 H (BEAKER) (test code = 354) CREATININE (BEAKER) 1.36 mg/dL 0.57-1.25 H (test code = 358) GLUCOSE RANDOM 91 mg/dL 70-105 (BEAKER) (test code = 652) CALCIUM (BEAKER) 10.0 mg/dL 8.4-10.2 (test code = 697) AST (SGOT) (BEAKER) 16 U/L 5-34 (test code = 353) ALT (SGPT) (BEAKER) 11 U/L 6-55 (test code = 347) EGFR (BEAKER) (test mL/min/1.73 INSUFFIC IENT code = 1092) sq m CLINICAL DATA T O CALCULATE ESTIM ATED GFR. [id number] 08:32:00 Test Item Value Reference Range Interpretation Comments PHOSPHORUS (BEAKER) (test code = 2.4 mg/dL 2.3-4.7 604) LACTATE DEHYDROGENASE (LDH)2017-07-27 08:32:00 Test Item Value Reference Range Interpretation Comments LACTATE DEHYDROGENASE (BEAKER) (test 137 U/L 125-220 code = 635) URINALYSIS W/ REFLEX URINE [id number] 08:28:00 Test Item Value Reference Range Interpretation Comments COLOR (BEAKER) (test code = 470) Yellow CLARITY (BEAKER) (test code = 469) Clear SPECIFIC GRAVITY UA (BEAKER) (test 1.020 1.001-1.035 code = 468) PH UA (BEAKER) (test code = 467) 5.5 5.0-8.0 PROTEIN UA (BEAKER) (test code = 10 mg/dL Negative A 464) GLUCOSE UA (BEAKER) (test code = Negative Negative 365) KETONES UA (BEAKER) (test code = Negative Negative 371) BILIRUBIN UA (BEAKER) (test code = Negative Negative 462) BLOOD UA (BEAKER) (test code = 461) Negative Negative NITRITE UA (BEAKER) (test code = Negative Negative 465) LEUKOCYTE ESTERASE UA (BEAKER) Negative Negative (test code = 466) UROBILINOGEN UA (BEAKER) (test code 0.2 mg/dL 0.2-1.0 = 463) RBC UA (BEAKER) (test code = 519) 0 /HPF WBC UA (BEAKER) (test code = 520) < /HPF BACTERIA (BEAKER) (test code = 517) Rare SQUAMOUS EPITHELIAL (BEAKER) (test 1 /HPF code = 516) SOURCE(BEAKER) (test code = 2795) CBC W/PLT COUNT & AUTO [id number] 08:03:00 Test Item Value Reference Range Interpretation Comments WHITE BLOOD CELL COUNT (BEAKER) 6.3 K/ L 3.5-10.5 (test code = 775) RED BLOOD CELL COUNT (BEAKER) 4.87 M/ L 4.63-6.08 (test code = 761) HEMOGLOBIN (BEAKER) (test code = 14.1 GM/DL 13.7-17.5 410) HEMATOCRIT (BEAKER) (test code = 42.6 % 40.1-51.0 411) MEAN CORPUSCULAR VOLUME (BEAKER) 87.5 fL 79.0-92.2 (test code = 753) MEAN CORPUSCULAR HEMOGLOBIN 29.0 pg 25.7-32.2 (BEAKER) (test code = 751) MEAN CORPUSCULAR HEMOGLOBIN CONC 33.1 GM/DL 32.3-36.5 (BEAKER) (test code = 752) RED CELL DISTRIBUTION WIDTH 14.4 % 11.6-14.4 (BEAKER) (test code = 412) PLATELET COUNT (BEAKER) (test 181 K/CU MM 150-450 code = 756) MEAN PLATELET VOLUME (BEAKER) 11.0 fL 9.4-12.4 (test code = 754) NUCLEATED RED BLOOD CELLS 0 /100 WBC 0-0 (BEAKER) (test code = 413) NEUTROPHILS RELATIVE PERCENT 60 % (BEAKER) (test code = 429) LYMPHOCYTES RELATIVE PERCENT 28 % (BEAKER) (test code = 430) MONOCYTES RELATIVE PERCENT 10 % (BEAKER) (test code = 431) EOSINOPHILS RELATIVE PERCENT 1 % (BEAKER) (test code = 432) BASOPHILS RELATIVE PERCENT 1 % (BEAKER) (test code = 437) NEUTROPHILS ABSOLUTE COUNT 3.81 K/ L 1.78-5.38 (BEAKER) (test code = 670) LYMPHOCYTES ABSOLUTE COUNT 1.80 K/ L 1.32-3.57 (BEAKER) (test code = 414) MONOCYTES ABSOLUTE COUNT (BEAKER) 0.61 K/ L 0.30-0.82 (test code = 415) EOSINOPHILS ABSOLUTE COUNT 0.08 K/ L 0.04-0.54 (BEAKER) (test code = 416) BASOPHILS ABSOLUTE COUNT (BEAKER) 0.03 K/ L 0.01-0.08 (test code = 417) IMMATURE GRANULOCYTES-RELATIVE 0 % 0-1 PERCENT (BEAKER) (test code = 2801) TACROLIMUS [id number] 13:01:00 Test Item Value Reference Range Interpretation Comments TACROLIMUS BLOOD (BEAKER) (test 6.5 ng/mL 10.0-20.0 L code = 657) URINALYSIS W/ REFLEX URINE [id number] 09:36:00 Test Item Value Reference Range Interpretation Comments COLOR (BEAKER) (test code = 470) Yellow CLARITY (BEAKER) (test code = 469) Clear SPECIFIC GRAVITY UA (BEAKER) (test 1.017 1.001-1.035 code = 468) PH UA (BEAKER) (test code = 467) 6.0 5.0-8.0 PROTEIN UA (BEAKER) (test code = 10 mg/dL Negative A 464) GLUCOSE UA (BEAKER) (test code = Negative Negative 365) KETONES UA (BEAKER) (test code = Negative Negative 371) BILIRUBIN UA (BEAKER) (test code = Negative Negative 462) BLOOD UA (BEAKER) (test code = 461) Negative Negative NITRITE UA (BEAKER) (test code = Negative Negative 465) LEUKOCYTE ESTERASE UA (BEAKER) Negative Negative (test code = 466) UROBILINOGEN UA (BEAKER) (test code 0.2 mg/dL 0.2-1.0 = 463) RBC UA (BEAKER) (test code = 519) 1 /HPF WBC UA (BEAKER) (test code = 520) 1 /HPF SQUAMOUS EPITHELIAL (BEAKER) (test < /HPF code = 516) SOURCE(BEAKER) (test code = 2795) COMPREHENSIVE METABOLIC [id number] 09:08:00 Test Item Value Reference Range Interpretation Comments TOTAL PROTEIN 6.7 gm/dL 6.0-8.3 (BEAKER) (test code = 770) ALBUMIN (BEAKER) 4.0 g/dL 3.5-5.0 (test code = 1145) ALKALINE PHOSPHATASE 119 U/L 40-150 (BEAKER) (test code = 346) BILIRUBIN TOTAL 0.5 mg/dL 0.2-1.2 (BEAKER) (test code = 377) SODIUM (BEAKER) 141 meq/L 136-145 (test code = 381) POTASSIUM (BEAKER) 4.9 meq/L 3.5-5.1 (test code = 379) CHLORIDE (BEAKER) 109 meq/L 98-107 H (test code = 382) CO2 (BEAKER) (test 25 meq/L 22-29 code = 355) BLOOD UREA NITROGEN 25 mg/dL 7-21 H (BEAKER) (test code = 354) CREATININE (BEAKER) 1.59 mg/dL 0.57-1.25 H (test code = 358) GLUCOSE RANDOM 89 mg/dL 70-105 (BEAKER) (test code = 652) CALCIUM (BEAKER) 9.3 mg/dL 8.4-10.2 (test code = 697) AST (SGOT) (BEAKER) 13 U/L 5-34 (test code = 353) ALT (SGPT) (BEAKER) 9 U/L 6-55 (test code = 347) EGFR (BEAKER) (test mL/min/1.73 INSUFFIC IENT code = 1092) sq m CLINICAL DATA T O CALCULATE ESTIM ATED GFR. [id number] 08:49:00 Test Item Value Reference Range Interpretation Comments PHOSPHORUS (BEAKER) (test code = 2.1 mg/dL 2.3-4.7 L 604) LACTATE DEHYDROGENASE (LDH)2017-06-22 08:49:00 Test Item Value Reference Range Interpretation Comments LACTATE DEHYDROGENASE (BEAKER) (test 122 U/L 125-220 L code = 635) CBC W/PLT COUNT & AUTO [id number] 08:15:00 Test Item Value Reference Range Interpretation Comments WHITE BLOOD CELL COUNT (BEAKER) 5.6 K/ L 3.5-10.5 (test code = 775) RED BLOOD CELL COUNT (BEAKER) 4.78 M/ L 4.63-6.08 (test code = 761) HEMOGLOBIN (BEAKER) (test code = 13.6 GM/DL 13.7-17.5 L 410) HEMATOCRIT (BEAKER) (test code = 42.8 % 40.1-51.0 411) MEAN CORPUSCULAR VOLUME (BEAKER) 89.5 fL 79.0-92.2 (test code = 753) MEAN CORPUSCULAR HEMOGLOBIN 28.5 pg 25.7-32.2 (BEAKER) (test code = 751) MEAN CORPUSCULAR HEMOGLOBIN CONC 31.8 GM/DL 32.3-36.5 L (BEAKER) (test code = 752) RED CELL DISTRIBUTION WIDTH 13.8 % 11.6-14.4 (BEAKER) (test code = 412) PLATELET COUNT (BEAKER) (test 169 K/CU MM 150-450 code = 756) MEAN PLATELET VOLUME (BEAKER) 11.2 fL 9.4-12.4 (test code = 754) NUCLEATED RED BLOOD CELLS 0 /100 WBC 0-0 (BEAKER) (test code = 413) NEUTROPHILS RELATIVE PERCENT 54 % (BEAKER) (test code = 429) LYMPHOCYTES RELATIVE PERCENT 32 % (BEAKER) (test code = 430) MONOCYTES RELATIVE PERCENT 12 % (BEAKER) (test code = 431) EOSINOPHILS RELATIVE PERCENT 1 % (BEAKER) (test code = 432) BASOPHILS RELATIVE PERCENT 1 % (BEAKER) (test code = 437) NEUTROPHILS ABSOLUTE COUNT 3.01 K/ L 1.78-5.38 (BEAKER) (test code = 670) LYMPHOCYTES ABSOLUTE COUNT 1.79 K/ L 1.32-3.57 (BEAKER) (test code = 414) MONOCYTES ABSOLUTE COUNT (BEAKER) 0.66 K/ L 0.30-0.82 (test code = 415) EOSINOPHILS ABSOLUTE COUNT 0.06 K/ L 0.04-0.54 (BEAKER) (test code = 416) BASOPHILS ABSOLUTE COUNT (BEAKER) 0.04 K/ L 0.01-0.08 (test code = 417) IMMATURE GRANULOCYTES-RELATIVE 0 % 0-1 PERCENT (BEAKER) (test code = 2801) CBC W/PLT COUNT & AUTO [id number] 14:10:00 Test Item Value Reference Range Interpretation Comments WHITE BLOOD CELL COUNT (BEAKER) 4.3 K/ L 3.5-10.5 (test code = 775) RED BLOOD CELL COUNT (BEAKER) 4.66 M/ L 4.63-6.08 (test code = 761) HEMOGLOBIN (BEAKER) (test code = 13.2 GM/DL 13.7-17.5 L 410) HEMATOCRIT (BEAKER) (test code = 41.1 % 40.1-51.0 411) MEAN CORPUSCULAR VOLUME (BEAKER) 88.2 fL 79.0-92.2 (test code = 753) MEAN CORPUSCULAR HEMOGLOBIN 28.3 pg 25.7-32.2 (BEAKER) (test code = 751) MEAN CORPUSCULAR HEMOGLOBIN CONC 32.1 GM/DL 32.3-36.5 L (BEAKER) (test code = 752) RED CELL DISTRIBUTION WIDTH 13.3 % 11.6-14.4 (BEAKER) (test code = 412) PLATELET COUNT (BEAKER) (test 179 K/CU MM 150-450 code = 756) MEAN PLATELET VOLUME (BEAKER) 11.4 fL 9.4-12.4 (test code = 754) NUCLEATED RED BLOOD CELLS 0 /100 WBC 0-0 (BEAKER) (test code = 413) NEUTROPHILS RELATIVE PERCENT 44 % (BEAKER) (test code = 429) LYMPHOCYTES RELATIVE PERCENT 43 % (BEAKER) (test code = 430) MONOCYTES RELATIVE PERCENT 11 % (BEAKER) (test code = 431) EOSINOPHILS RELATIVE PERCENT 1 % (BEAKER) (test code = 432) BASOPHILS RELATIVE PERCENT 0 % (BEAKER) (test code = 437) NEUTROPHILS ABSOLUTE COUNT 1.89 K/ L 1.78-5.38 (BEAKER) (test code = 670) LYMPHOCYTES ABSOLUTE COUNT 1.83 K/ L 1.32-3.57 (BEAKER) (test code = 414) MONOCYTES ABSOLUTE COUNT (BEAKER) 0.47 K/ L 0.30-0.82 (test code = 415) EOSINOPHILS ABSOLUTE COUNT 0.05 K/ L 0.04-0.54 (BEAKER) (test code = 416) BASOPHILS ABSOLUTE COUNT (BEAKER) 0.01 K/ L 0.01-0.08 (test code = 417) IMMATURE GRANULOCYTES-RELATIVE 0 % 0-1 PERCENT (BEAKER) (test code = 2801) (MANUAL DIFFERENTIAL)2017-06-01 14:10:00 Test Item Value Reference Range Interpretation Comments TOTAL COUNTED (BEAKER) (test code = 1351) WBC MORPHOLOGY (BEAKER) (test code = Normal 487) PLT MORPHOLOGY (BEAKER) (test code = Normal 486) RBC MORPHOLOGY (BEAKER) (test code = Normal 762) URINALYSIS W/ REFLEX URINE [id number] 13:49:00 Test Item Value Reference Range Interpretation Comments COLOR (BEAKER) (test code = 470) Yellow CLARITY (BEAKER) (test code = 469) Clear SPECIFIC GRAVITY UA (BEAKER) (test 1.020 1.001-1.035 code = 468) PH UA (BEAKER) (test code = 467) 6.5 5.0-8.0 PROTEIN UA (BEAKER) (test code = 30 mg/dL Negative A 464) GLUCOSE UA (BEAKER) (test code = Negative Negative 365) KETONES UA (BEAKER) (test code = Negative Negative 371) BILIRUBIN UA (BEAKER) (test code = Negative Negative 462) BLOOD UA (BEAKER) (test code = 461) Negative Negative NITRITE UA (BEAKER) (test code = Negative Negative 465) LEUKOCYTE ESTERASE UA (BEAKER) Negative Negative (test code = 466) UROBILINOGEN UA (BEAKER) (test code 1.0 mg/dL 0.2-1.0 = 463) RBC UA (BEAKER) (test code = 519) < /HPF WBC UA (BEAKER) (test code = 520) 1 /HPF SQUAMOUS EPITHELIAL (BEAKER) (test 1 /HPF code = 516) SOURCE(BEAKER) (test code = 2795) TACROLIMUS [id number] 13:19:00 Test Item Value Reference Range Interpretation Comments TACROLIMUS BLOOD (BEAKER) (test 6.2 ng/mL 10.0-20.0 L code = 657) COMPREHENSIVE METABOLIC [id number] 11:03:00 Test Item Value Reference Range Interpretation Comments TOTAL PROTEIN 6.6 gm/dL 6.0-8.3 (BEAKER) (test code = 770) ALBUMIN (BEAKER) 4.0 g/dL 3.5-5.0 (test code = 1145) ALKALINE PHOSPHATASE 100 U/L 40-150 (BEAKER) (test code = 346) BILIRUBIN TOTAL 0.5 mg/dL 0.2-1.2 (BEAKER) (test code = 377) SODIUM (BEAKER) 143 meq/L 136-145 (test code = 381) POTASSIUM (BEAKER) 4.4 meq/L 3.5-5.1 (test code = 379) CHLORIDE (BEAKER) 109 meq/L 98-107 H (test code = 382) CO2 (BEAKER) (test 25 meq/L 22-29 code = 355) BLOOD UREA NITROGEN 22 mg/dL 7-21 H (BEAKER) (test code = 354) CREATININE (BEAKER) 1.34 mg/dL 0.57-1.25 H (test code = 358) GLUCOSE RANDOM 88 mg/dL 70-105 (BEAKER) (test code = 652) CALCIUM (BEAKER) 9.2 mg/dL 8.4-10.2 (test code = 697) AST (SGOT) (BEAKER) 19 U/L 5-34 (test code = 353) ALT (SGPT) (BEAKER) 13 U/L 6-55 (test code = 347) EGFR (BEAKER) (test mL/min/1.73 INSUFFIC IENT code = 1092) sq m CLINICAL DATA T O CALCULATE ESTIM ATED GFR. [id number] 10:48:00 Test Item Value Reference Range Interpretation Comments PHOSPHORUS (BEAKER) (test code = 2.3 mg/dL 2.3-4.7 604) LACTATE DEHYDROGENASE (LDH)2017-06-01 10:48:00 Test Item Value Reference Range Interpretation Comments LACTATE DEHYDROGENASE (BEAKER) (test 167 U/L 125-220 code = 635) BK VIRUS PCR, [id number] 15:40:00 Test Item Value Reference Range Interpretation Comments BK VIRUS, PLASMA, NEG Negative or below the (BEAKER) (test code = linear range of the 2145) assay (<1,000 copies/mL) Patients may have replicating BK Virus which is of no clinical significance. Viral load measurements are helpful to identify BK Virus replication of potential clinical significance. Consensus recommendations have been published of threshold values for the presumptive diagnosis of polyomavirus-associated nephropathy (Transplantation 2005;79:7314-5596).A BK Virus load greater than 5,000-10,000 copies/mL in the plasma is consistent with the presumptive diagnosis of polyoma-associated nephropathy in renal transplant recipients.BK Virus DNA was assessed using quantitative polymerase chain reaction and fluorescent monitoring of a specific hybridized probe. Genetic variation and other factors can affect the accuracy of nucleic acid testing. Therefore, the results should be interpreted in light of clinical data.This test was developed and its performance characteristics determined by the [facility] Pathology Department, Section of Molecular Pathology. It has not been cleared or approved by the U.S. Food and Drug Administration (FDA). Since FDA approval is not required for clinicaluse of the test, validation was done as required by the Clinical Laboratory Improvement Amendments of 1988.URINALYSIS W/ REFLEX URINE [id number] 14:02:00 Test Item Value Reference Range Interpretation Comments COLOR (BEAKER) (test code = 470) Yellow CLARITY (BEAKER) (test code = 469) Clear SPECIFIC GRAVITY UA (BEAKER) (test > 1.001-1.035 code = 468) PH UA (BEAKER) (test code = 467) 5.5 5.0-8.0 PROTEIN UA (BEAKER) (test code = 30 mg/dL Negative A 464) GLUCOSE UA (BEAKER) (test code = Negative Negative 365) KETONES UA (BEAKER) (test code = Trace Negative A 371) BILIRUBIN UA (BEAKER) (test code = Negative Negative 462) BLOOD UA (BEAKER) (test code = 461) Negative Negative NITRITE UA (BEAKER) (test code = Negative Negative 465) LEUKOCYTE ESTERASE UA (BEAKER) Negative Negative (test code = 466) UROBILINOGEN UA (BEAKER) (test code 0.2 mg/dL 0.2-1.0 = 463) RBC UA (BEAKER) (test code = 519) < /HPF WBC UA (BEAKER) (test code = 520) 1 /HPF MUCUS (BEAKER) (test code = 1574) Rare SQUAMOUS EPITHELIAL (BEAKER) (test < /HPF code = 516) HYALINE CASTS (BEAKER) (test code = 2 /LPF 514) SOURCE(BEAKER) (test code = 2795) TACROLIMUS [id number] 11:54:00 Test Item Value Reference Range Interpretation Comments TACROLIMUS BLOOD (BEAKER) (test 8.6 ng/mL 10.0-20.0 L code = 657) CBC W/PLT COUNT & AUTO [id number] 10:31:00 Test Item Value Reference Range Interpretation Comments WHITE BLOOD CELL COUNT 2.9 K/ L 3.5-10.5 L (BEAKER) (test code = 775) RED BLOOD CELL COUNT 5.17 M/ L 4.63-6.08 (BEAKER) (test code = 761) HEMOGLOBIN (BEAKER) 14.7 GM/DL 13.7-17.5 (test code = 410) HEMATOCRIT (BEAKER) 45.6 % 40.1-51.0 (test code = 411) MEAN CORPUSCULAR 88.2 fL 79.0-92.2 VOLUME (BEAKER) (test code = 753) MEAN CORPUSCULAR 28.4 pg 25.7-32.2 HEMOGLOBIN (BEAKER) (test code = 751) MEAN CORPUSCULAR 32.2 GM/DL 32.3-36.5 L HEMOGLOBIN CONC (BEAKER) (test code = 752) RED CELL DISTRIBUTION 13.2 % 11.6-14.4 WIDTH (BEAKER) (test code = 412) PLATELET COUNT 119 K/CU MM 150-450 L (BEAKER) (test code = 756) MEAN PLATELET VOLUME 11.2 fL 9.4-12.4 (BEAKER) (test code = 754) NUCLEATED RED BLOOD 0 /100 WBC 0-0 CELLS (BEAKER) (test code = 413) IMMATURE 0 % 0-1 GRANULOCYTES-RELATIVE PERCENT (BEAKER) (test code = 2801) NEUTROPHILS RELATIVE 46 % This is an appended PERCENT (BEAKER) (test repor t. These code = 429) results have be en appended to a previously juventino l verified report . LYMPHOCYTES RELATIVE 40 % This is an appended PERCENT (BEAKER) (test repor t. These code = 430) results have be en appended to a previously juventino l verified report . MONOCYTES RELATIVE 12 % This is a n appended PERCENT (BEAKER) (test repor t. These code = 431) results have be en appended to a previously juventino l verified report . EOSINOPHILS RELATIVE 1 % This is an appended PERCENT (BEAKER) (test repor t. These code = 432) results have be en appended to a previously juventino l verified report . BASOPHILS RELATIVE 0 % This is a n appended PERCENT (BEAKER) (test repor t. These code = 437) results have be en appended to a previously juventino l verified report . NEUTROPHILS ABSOLUTE 1.31 K/ L 1.78-5.38 L This is an appended COUNT (BEAKER) (test report. These code = 670) results have be en appended to a previously juventino l verified report . LYMPHOCYTES ABSOLUTE 1.15 K/ L 1.32-3.57 L This is an appended COUNT (BEAKER) (test report. These code = 414) results have be en appended to a previously juventino l verified report . MONOCYTES ABSOLUTE 0.35 K/ L 0.30-0.82 This is a n appended COUNT (BEAKER) (test report. These code = 415) results have be en appended to a previously juventino l verified report . EOSINOPHILS ABSOLUTE 0.04 K/ L 0.04-0.54 This is an appended COUNT (BEAKER) (test report. These code = 416) results have be en appended to a previously juventino l verified report . BASOPHILS ABSOLUTE 0.01 K/ L 0.01-0.08 This is a n appended COUNT (BEAKER) (test report. These code = 417) results have be en appended to a previously juventino l verified report . (MANUAL DIFFERENTIAL)2017-05-25 10:31:00 Test Item Value Reference Range Interpretation Comments TOTAL COUNTED (BEAKER) (test code = 1351) COMPREHENSIVE METABOLIC [id number] 09:52:00 Test Item Value Reference Range Interpretation Comments TOTAL PROTEIN 6.8 gm/dL 6.0-8.3 (BEAKER) (test code = 770) ALBUMIN (BEAKER) 4.0 g/dL 3.5-5.0 (test code = 1145) ALKALINE PHOSPHATASE 95 U/L 40-150 (BEAKER) (test code = 346) BILIRUBIN TOTAL 0.4 mg/dL 0.2-1.2 (BEAKER) (test code = 377) SODIUM (BEAKER) 141 meq/L 136-145 (test code = 381) POTASSIUM (BEAKER) 4.0 meq/L 3.5-5.1 (test code = 379) CHLORIDE (BEAKER) 105 meq/L 98-107 (test code = 382) CO2 (BEAKER) (test 27 meq/L 22-29 code = 355) BLOOD UREA NITROGEN 29 mg/dL 7-21 H (BEAKER) (test code = 354) CREATININE (BEAKER) 1.88 mg/dL 0.57-1.25 H (test code = 358) GLUCOSE RANDOM 91 mg/dL 70-105 (BEAKER) (test code = 652) CALCIUM (BEAKER) 9.7 mg/dL 8.4-10.2 (test code = 697) AST (SGOT) (BEAKER) 20 U/L 5-34 (test code = 353) ALT (SGPT) (BEAKER) 11 U/L 6-55 (test code = 347) EGFR (BEAKER) (test mL/min/1.73 INSUFFIC IENT code = 1092) sq m CLINICAL DATA T O CALCULATE ESTIM ATED GFR. [id number] 09:35:00 Test Item Value Reference Range Interpretation Comments PHOSPHORUS (BEAKER) (test code = 2.2 mg/dL 2.3-4.7 L 604) LACTATE DEHYDROGENASE (LDH)2017-05-25 09:35:00 Test Item Value Reference Range Interpretation Comments LACTATE DEHYDROGENASE (BEAKER) (test 200 U/L 125-220 code = 635) BK VIRUS PCR, [id number] 15:21:00 Test Item Value Reference Range Interpretation Comments BK VIRUS, PLASMA, NEG Negative or below the (BEAKER) (test code = linear range of the 2145) assay (<1,000 copies/mL) Patients may have replicating BK Virus which is of no clinical significance. Viral load measurements are helpful to identify BK Virus replication of potential clinical significance. Consensus recommendations have been published of threshold values for the presumptive diagnosis of polyomavirus-associated nephropathy (Transplantation 2005;79:6874-3763).A BK Virus load greater than 5,000-10,000 copies/mL in the plasma is consistent with the presumptive diagnosis of polyoma-associated nephropathy in renal transplant recipients.BK Virus DNA was assessed using quantitative polymerase chain reaction and fluorescent monitoring of a specific hybridized probe. Genetic variation and other factors can affect the accuracy of nucleic acid testing. Therefore, the results should be interpreted in light of clinical data.This test was developed and its performance characteristics determined by the [facility] Pathology Department, Section of Molecular Pathology. It has not been cleared or approved by the U.S. Food and Drug Administration (FDA). Since FDA approval is not required for clinicaluse of the test, validation was done as required by the Clinical Laboratory Improvement Amendments of 1988.TACROLIMUS LEVEL 2017-04-27 10:55:00 Test Item Value Reference Range Interpretation Comments TACROLIMUS BLOOD (BEAKER) (test 5.7 ng/mL 10.0-20.0 L code = 657) COMPREHENSIVE METABOLIC [id number] 10:41:00 Test Item Value Reference Range Interpretation Comments TOTAL PROTEIN 7.2 gm/dL 6.0-8.3 Specimen sligh tly (BEAKER) (test code hemolyze d = 770) ALBUMIN (BEAKER) 4.1 g/dL 3.5-5.0 Specimen sl ightly (test code = 1145) hemolyzed ALKALINE PHOSPHATASE 136 U/L 40-150 (BEAKER) (test code = 346) BILIRUBIN TOTAL 0.7 mg/dL 0.2-1.2 Specimen sli ghtly (BEAKER) (test code hemolyze d = 377) SODIUM (BEAKER) 144 meq/L 136-145 (test code = 381) POTASSIUM (BEAKER) 4.9 meq/L 3.5-5.1 Specimen slightly (test code = 379) hemolyzed CHLORIDE (BEAKER) 110 meq/L 98-107 H (test code = 382) CO2 (BEAKER) (test 25 meq/L 22-29 code = 355) BLOOD UREA NITROGEN 28 mg/dL 7-21 H (BEAKER) (test code = 354) CREATININE (BEAKER) 1.60 mg/dL 0.57-1.25 H Specimen slightly (test code = 358) hemolyzed GLUCOSE RANDOM 101 mg/dL 70-105 (BEAKER) (test code = 652) CALCIUM (BEAKER) 10.4 mg/dL 8.4-10.2 H (test code = 697) AST (SGOT) (BEAKER) 14 U/L 5-34 Specimen slightly (test code = 353) hemolyzed ALT (SGPT) (BEAKER) 10 U/L 6-55 Specimen slightly (test code = 347) hemolyzed EGFR (BEAKER) (test mL/min/1.73 INSUFFIC IENT code = 1092) sq m CLINICAL DATA T O CALCULATE ESTIM ATED GFR. URINALYSIS W/ REFLEX URINE [id number] 10:11:00 Test Item Value Reference Range Interpretation Comments COLOR (BEAKER) (test code = 470) Yellow CLARITY (BEAKER) (test code = 469) Clear SPECIFIC GRAVITY UA (BEAKER) (test 1.016 1.001-1.035 code = 468) PH UA (BEAKER) (test code = 467) 5.0 5.0-8.0 PROTEIN UA (BEAKER) (test code = Negative Negative 464) GLUCOSE UA (BEAKER) (test code = Negative Negative 365) KETONES UA (BEAKER) (test code = Negative Negative 371) BILIRUBIN UA (BEAKER) (test code = Negative Negative 462) BLOOD UA (BEAKER) (test code = 461) Negative Negative NITRITE UA (BEAKER) (test code = Negative Negative 465) LEUKOCYTE ESTERASE UA (BEAKER) Negative Negative (test code = 466) UROBILINOGEN UA (BEAKER) (test code 0.2 mg/dL 0.2-1.0 = 463) RBC UA (BEAKER) (test code = 519) < /HPF WBC UA (BEAKER) (test code = 520) 2 /HPF SQUAMOUS EPITHELIAL (BEAKER) (test < /HPF code = 516) SOURCE(BEAKER) (test code = 2795) LACTATE DEHYDROGENASE (LDH)2017-04-27 09:52:00 Test Item Value Reference Range Interpretation Comments LACTATE DEHYDROGENASE 199 U/L 125-220 Specim en slightly (BEAKER) (test code = hemoly zed 635) [id number] 09:09:00 Test Item Value Reference Range Interpretation Comments PHOSPHORUS (BEAKER) 2.3 mg/dL 2.3-4.7 Specimen slightly (test code = 604) hemolyzed CBC W/PLT COUNT & AUTO [id number] 08:37:00 Test Item Value Reference Range Interpretation Comments WHITE BLOOD CELL COUNT (BEAKER) 6.0 K/ L 3.5-10.5 (test code = 775) RED BLOOD CELL COUNT (BEAKER) 4.94 M/ L 4.63-6.08 (test code = 761) HEMOGLOBIN (BEAKER) (test code = 14.1 GM/DL 13.7-17.5 410) HEMATOCRIT (BEAKER) (test code = 44.7 % 40.1-51.0 411) MEAN CORPUSCULAR VOLUME (BEAKER) 90.5 fL 79.0-92.2 (test code = 753) MEAN CORPUSCULAR HEMOGLOBIN 28.5 pg 25.7-32.2 (BEAKER) (test code = 751) MEAN CORPUSCULAR HEMOGLOBIN CONC 31.5 GM/DL 32.3-36.5 L (BEAKER) (test code = 752) RED CELL DISTRIBUTION WIDTH 13.7 % 11.6-14.4 (BEAKER) (test code = 412) PLATELET COUNT (BEAKER) (test 191 K/CU MM 150-450 code = 756) MEAN PLATELET VOLUME (BEAKER) 11.0 fL 9.4-12.4 (test code = 754) NUCLEATED RED BLOOD CELLS 0 /100 WBC 0-0 (BEAKER) (test code = 413) NEUTROPHILS RELATIVE PERCENT 57 % (BEAKER) (test code = 429) LYMPHOCYTES RELATIVE PERCENT 31 % (BEAKER) (test code = 430) MONOCYTES RELATIVE PERCENT 10 % (BEAKER) (test code = 431) EOSINOPHILS RELATIVE PERCENT 2 % (BEAKER) (test code = 432) BASOPHILS RELATIVE PERCENT 1 % (BEAKER) (test code = 437) NEUTROPHILS ABSOLUTE COUNT 3.41 K/ L 1.78-5.38 (BEAKER) (test code = 670) LYMPHOCYTES ABSOLUTE COUNT 1.89 K/ L 1.32-3.57 (BEAKER) (test code = 414) MONOCYTES ABSOLUTE COUNT (BEAKER) 0.57 K/ L 0.30-0.82 (test code = 415) EOSINOPHILS ABSOLUTE COUNT 0.09 K/ L 0.04-0.54 (BEAKER) (test code = 416) BASOPHILS ABSOLUTE COUNT (BEAKER) 0.05 K/ L 0.01-0.08 (test code = 417) IMMATURE GRANULOCYTES-RELATIVE 0 % 0-1 PERCENT (BEAKER) (test code = 2801) TACROLIMUS [id number] 11:59:00 Test Item Value Reference Range Interpretation Comments TACROLIMUS BLOOD (BEAKER) (test 7.4 ng/mL 10.0-20.0 L code = 657) URINALYSIS W/ REFLEX URINE [id number] 10:27:00 Test Item Value Reference Range Interpretation Comments COLOR (BEAKER) (test code = 470) Yellow CLARITY (BEAKER) (test code = 469) Clear SPECIFIC GRAVITY UA (BEAKER) (test 1.015 1.001-1.035 code = 468) PH UA (BEAKER) (test code = 467) 6.0 5.0-8.0 PROTEIN UA (BEAKER) (test code = Negative Negative 464) GLUCOSE UA (BEAKER) (test code = Negative Negative 365) KETONES UA (BEAKER) (test code = Negative Negative 371) BILIRUBIN UA (BEAKER) (test code = Negative Negative 462) BLOOD UA (BEAKER) (test code = 461) Negative Negative NITRITE UA (BEAKER) (test code = Negative Negative 465) LEUKOCYTE ESTERASE UA (BEAKER) Small Negative A (test code = 466) UROBILINOGEN UA (BEAKER) (test code 0.2 mg/dL 0.2-1.0 = 463) RBC UA (BEAKER) (test code = 519) < /HPF WBC UA (BEAKER) (test code = 520) 9 /HPF SQUAMOUS EPITHELIAL (BEAKER) (test < /HPF code = 516) SOURCE(BEAKER) (test code = 2795) COMPREHENSIVE METABOLIC [id number] 09:34:00 Test Item Value Reference Range Interpretation Comments TOTAL PROTEIN 6.3 gm/dL 6.0-8.3 (BEAKER) (test code = 770) ALBUMIN (BEAKER) 3.8 g/dL 3.5-5.0 (test code = 1145) ALKALINE PHOSPHATASE 125 U/L 40-150 (BEAKER) (test code = 346) BILIRUBIN TOTAL 0.3 mg/dL 0.2-1.2 (BEAKER) (test code = 377) SODIUM (BEAKER) 143 meq/L 136-145 (test code = 381) POTASSIUM (BEAKER) 5.0 meq/L 3.5-5.1 (test code = 379) CHLORIDE (BEAKER) 112 meq/L 98-107 H (test code = 382) CO2 (BEAKER) (test 25 meq/L 22-29 code = 355) BLOOD UREA NITROGEN 30 mg/dL 7-21 H (BEAKER) (test code = 354) CREATININE (BEAKER) 1.43 mg/dL 0.57-1.25 H (test code = 358) GLUCOSE RANDOM 92 mg/dL 70-105 (BEAKER) (test code = 652) CALCIUM (BEAKER) 9.6 mg/dL 8.4-10.2 (test code = 697) AST (SGOT) (BEAKER) 14 U/L 5-34 (test code = 353) ALT (SGPT) (BEAKER) 9 U/L 6-55 (test code = 347) EGFR (BEAKER) (test mL/min/1.73 INSUFFIC IENT code = 1092) sq m CLINICAL DATA T O CALCULATE ESTIM ATED GFR. [id number] 09:12:00 Test Item Value Reference Range Interpretation Comments PHOSPHORUS (BEAKER) (test code = 2.3 mg/dL 2.3-4.7 604) LACTATE DEHYDROGENASE (LDH)2017-04-06 09:12:00 Test Item Value Reference Range Interpretation Comments LACTATE DEHYDROGENASE (BEAKER) (test 161 U/L 125-220 code = 635) CBC W/PLT COUNT & AUTO [id number] 08:46:00 Test Item Value Reference Range Interpretation Comments WHITE BLOOD CELL COUNT (BEAKER) 5.6 K/ L 3.5-10.5 (test code = 775) RED BLOOD CELL COUNT (BEAKER) 4.18 M/ L 4.63-6.08 L (test code = 761) HEMOGLOBIN (BEAKER) (test code = 12.0 GM/DL 13.7-17.5 L 410) HEMATOCRIT (BEAKER) (test code = 38.0 % 40.1-51.0 L 411) MEAN CORPUSCULAR VOLUME (BEAKER) 90.9 fL 79.0-92.2 (test code = 753) MEAN CORPUSCULAR HEMOGLOBIN 28.7 pg 25.7-32.2 (BEAKER) (test code = 751) MEAN CORPUSCULAR HEMOGLOBIN CONC 31.6 GM/DL 32.3-36.5 L (BEAKER) (test code = 752) RED CELL DISTRIBUTION WIDTH 13.8 % 11.6-14.4 (BEAKER) (test code = 412) PLATELET COUNT (BEAKER) (test 161 K/CU MM 150-450 code = 756) MEAN PLATELET VOLUME (BEAKER) 11.4 fL 9.4-12.4 (test code = 754) NUCLEATED RED BLOOD CELLS 0 /100 WBC 0-0 (BEAKER) (test code = 413) NEUTROPHILS RELATIVE PERCENT 58 % (BEAKER) (test code = 429) LYMPHOCYTES RELATIVE PERCENT 30 % (BEAKER) (test code = 430) MONOCYTES RELATIVE PERCENT 10 % (BEAKER) (test code = 431) EOSINOPHILS RELATIVE PERCENT 1 % (BEAKER) (test code = 432) BASOPHILS RELATIVE PERCENT 0 % (BEAKER) (test code = 437) NEUTROPHILS ABSOLUTE COUNT 3.26 K/ L 1.78-5.38 (BEAKER) (test code = 670) LYMPHOCYTES ABSOLUTE COUNT 1.70 K/ L 1.32-3.57 (BEAKER) (test code = 414) MONOCYTES ABSOLUTE COUNT (BEAKER) 0.54 K/ L 0.30-0.82 (test code = 415) EOSINOPHILS ABSOLUTE COUNT 0.08 K/ L 0.04-0.54 (BEAKER) (test code = 416) BASOPHILS ABSOLUTE COUNT (BEAKER) 0.02 K/ L 0.01-0.08 (test code = 417) IMMATURE GRANULOCYTES-RELATIVE 0 % 0-1 PERCENT (BEAKER) (test code = 2801) TACROLIMUS [id number] 11:30:00 Test Item Value Reference Range Interpretation Comments TACROLIMUS BLOOD (BEAKER) (test 6.2 ng/mL 10.0-20.0 L code = 657) COMPREHENSIVE METABOLIC [id number] 08:45:00 Test Item Value Reference Range Interpretation Comments TOTAL PROTEIN 6.7 gm/dL 6.0-8.3 (BEAKER) (test code = 770) ALBUMIN (BEAKER) 3.9 g/dL 3.5-5.0 (test code = 1145) ALKALINE PHOSPHATASE 113 U/L 40-150 (BEAKER) (test code = 346) BILIRUBIN TOTAL 0.4 mg/dL 0.2-1.2 (BEAKER) (test code = 377) SODIUM (BEAKER) 137 meq/L 136-145 (test code = 381) POTASSIUM (BEAKER) 4.9 meq/L 3.5-5.1 (test code = 379) CHLORIDE (BEAKER) 109 meq/L 98-107 H (test code = 382) CO2 (BEAKER) (test 21 meq/L 22-29 L code = 355) BLOOD UREA NITROGEN 32 mg/dL 7-21 H (BEAKER) (test code = 354) CREATININE (BEAKER) 1.49 mg/dL 0.57-1.25 H (test code = 358) GLUCOSE RANDOM 85 mg/dL 70-105 (BEAKER) (test code = 652) CALCIUM (BEAKER) 10.0 mg/dL 8.4-10.2 (test code = 697) AST (SGOT) (BEAKER) 12 U/L 5-34 (test code = 353) ALT (SGPT) (BEAKER) 10 U/L 6-55 (test code = 347) EGFR (BEAKER) (test mL/min/1.73 INSUFFIC IENT code = 1092) sq m CLINICAL DATA T O CALCULATE ESTIM ATED GFR. [id number] 08:29:00 Test Item Value Reference Range Interpretation Comments PHOSPHORUS (BEAKER) (test code = 2.6 mg/dL 2.3-4.7 604) LACTATE DEHYDROGENASE (LDH)2017-03-17 08:29:00 Test Item Value Reference Range Interpretation Comments LACTATE DEHYDROGENASE (BEAKER) (test 145 U/L 125-220 code = 635) URINALYSIS W/ REFLEX URINE [id number] 08:03:00 Test Item Value Reference Range Interpretation Comments COLOR (BEAKER) (test code = 470) Yellow CLARITY (BEAKER) (test code = 469) Clear SPECIFIC GRAVITY UA (BEAKER) (test 1.021 1.001-1.035 code = 468) PH UA (BEAKER) (test code = 467) 5.5 5.0-8.0 PROTEIN UA (BEAKER) (test code = 10 mg/dL Negative A 464) GLUCOSE UA (BEAKER) (test code = Negative Negative 365) KETONES UA (BEAKER) (test code = Negative Negative 371) BILIRUBIN UA (BEAKER) (test code = Negative Negative 462) BLOOD UA (BEAKER) (test code = 461) Negative Negative NITRITE UA (BEAKER) (test code = Negative Negative 465) LEUKOCYTE ESTERASE UA (BEAKER) Negative Negative (test code = 466) UROBILINOGEN UA (BEAKER) (test code 0.2 mg/dL 0.2-1.0 = 463) RBC UA (BEAKER) (test code = 519) 1 /HPF WBC UA (BEAKER) (test code = 520) < /HPF SQUAMOUS EPITHELIAL (BEAKER) (test 1 /HPF code = 516) SOURCE(BEAKER) (test code = 2795) CBC W/PLT COUNT & AUTO [id number] 07:51:00 Test Item Value Reference Range Interpretation Comments WHITE BLOOD CELL COUNT (BEAKER) 4.9 K/ L 3.5-10.5 (test code = 775) RED BLOOD CELL COUNT (BEAKER) 4.42 M/ L 4.63-6.08 L (test code = 761) HEMOGLOBIN (BEAKER) (test code = 12.6 GM/DL 13.7-17.5 L 410) HEMATOCRIT (BEAKER) (test code = 40.1 % 40.1-51.0 411) MEAN CORPUSCULAR VOLUME (BEAKER) 90.7 fL 79.0-92.2 (test code = 753) MEAN CORPUSCULAR HEMOGLOBIN 28.5 pg 25.7-32.2 (BEAKER) (test code = 751) MEAN CORPUSCULAR HEMOGLOBIN CONC 31.4 GM/DL 32.3-36.5 L (BEAKER) (test code = 752) RED CELL DISTRIBUTION WIDTH 13.7 % 11.6-14.4 (BEAKER) (test code = 412) PLATELET COUNT (BEAKER) (test 183 K/CU MM 150-450 code = 756) MEAN PLATELET VOLUME (BEAKER) 11.0 fL 9.4-12.4 (test code = 754) NUCLEATED RED BLOOD CELLS 0 /100 WBC 0-0 (BEAKER) (test code = 413) NEUTROPHILS RELATIVE PERCENT 56 % (BEAKER) (test code = 429) LYMPHOCYTES RELATIVE PERCENT 32 % (BEAKER) (test code = 430) MONOCYTES RELATIVE PERCENT 9 % (BEAKER) (test code = 431) EOSINOPHILS RELATIVE PERCENT 1 % (BEAKER) (test code = 432) BASOPHILS RELATIVE PERCENT 1 % (BEAKER) (test code = 437) NEUTROPHILS ABSOLUTE COUNT 2.75 K/ L 1.78-5.38 (BEAKER) (test code = 670) LYMPHOCYTES ABSOLUTE COUNT 1.59 K/ L 1.32-3.57 (BEAKER) (test code = 414) MONOCYTES ABSOLUTE COUNT (BEAKER) 0.46 K/ L 0.30-0.82 (test code = 415) EOSINOPHILS ABSOLUTE COUNT 0.06 K/ L 0.04-0.54 (BEAKER) (test code = 416) BASOPHILS ABSOLUTE COUNT (BEAKER) 0.03 K/ L 0.01-0.08 (test code = 417) IMMATURE GRANULOCYTES-RELATIVE 0 % 0-1 PERCENT (BEAKER) (test code = 2801) TACROLIMUS [id number] 12:30:00 Test Item Value Reference Range Interpretation Comments TACROLIMUS BLOOD (BEAKER) (test 7.0 ng/mL 10.0-20.0 L code = 657) URINALYSIS W/ REFLEX URINE [id number] 09:08:00 Test Item Value Reference Range Interpretation Comments COLOR (BEAKER) (test code = 470) Yellow CLARITY (BEAKER) (test code = 469) Clear SPECIFIC GRAVITY UA (BEAKER) (test 1.017 1.001-1.035 code = 468) PH UA (BEAKER) (test code = 467) 6.5 5.0-8.0 PROTEIN UA (BEAKER) (test code = Negative Negative 464) GLUCOSE UA (BEAKER) (test code = Negative Negative 365) KETONES UA (BEAKER) (test code = Negative Negative 371) BILIRUBIN UA (BEAKER) (test code = Negative Negative 462) BLOOD UA (BEAKER) (test code = 461) Negative Negative NITRITE UA (BEAKER) (test code = Negative Negative 465) LEUKOCYTE ESTERASE UA (BEAKER) Negative Negative (test code = 466) UROBILINOGEN UA (BEAKER) (test code 0.2 mg/dL 0.2-1.0 = 463) RBC UA (BEAKER) (test code = 519) < /HPF WBC UA (BEAKER) (test code = 520) < /HPF SQUAMOUS EPITHELIAL (BEAKER) (test < /HPF code = 516) SOURCE(BEAKER) (test code = 2795) COMPREHENSIVE METABOLIC [id number] 09:03:00 Test Item Value Reference Range Interpretation Comments TOTAL PROTEIN 6.7 gm/dL 6.0-8.3 (BEAKER) (test code = 770) ALBUMIN (BEAKER) 4.0 g/dL 3.5-5.0 (test code = 1145) ALKALINE PHOSPHATASE 117 U/L 40-150 (BEAKER) (test code = 346) BILIRUBIN TOTAL 0.4 mg/dL 0.2-1.2 (BEAKER) (test code = 377) SODIUM (BEAKER) 142 meq/L 136-145 (test code = 381) POTASSIUM (BEAKER) 5.8 meq/L 3.5-5.1 H (test code = 379) CHLORIDE (BEAKER) 110 meq/L 98-107 H (test code = 382) CO2 (BEAKER) (test 27 meq/L 22-29 code = 355) BLOOD UREA NITROGEN 39 mg/dL 7-21 H (BEAKER) (test code = 354) CREATININE (BEAKER) 1.66 mg/dL 0.57-1.25 H (test code = 358) GLUCOSE RANDOM 107 mg/dL 70-105 H (BEAKER) (test code = 652) CALCIUM (BEAKER) 10.4 mg/dL 8.4-10.2 H (test code = 697) AST (SGOT) (BEAKER) 12 U/L 5-34 (test code = 353) ALT (SGPT) (BEAKER) 10 U/L 6-55 (test code = 347) EGFR (BEAKER) (test mL/min/1.73 INSUFFIC IENT code = 1092) sq m CLINICAL DATA T O CALCULATE ESTIM ATED GFR. [id number] 08:52:00 Test Item Value Reference Range Interpretation Comments PHOSPHORUS (BEAKER) (test code = 2.5 mg/dL 2.3-4.7 604) LACTATE DEHYDROGENASE (LDH)2017-03-09 08:52:00 Test Item Value Reference Range Interpretation Comments LACTATE DEHYDROGENASE (BEAKER) (test 107 U/L 125-220 L code = 635) CBC W/PLT COUNT & AUTO [id number] 08:29:00 Test Item Value Reference Range Interpretation Comments WHITE BLOOD CELL COUNT (BEAKER) 5.8 K/ L 3.5-10.5 (test code = 775) RED BLOOD CELL COUNT (BEAKER) 4.39 M/ L 4.63-6.08 L (test code = 761) HEMOGLOBIN (BEAKER) (test code = 12.4 GM/DL 13.7-17.5 L 410) HEMATOCRIT (BEAKER) (test code = 40.1 % 40.1-51.0 411) MEAN CORPUSCULAR VOLUME (BEAKER) 91.3 fL 79.0-92.2 (test code = 753) MEAN CORPUSCULAR HEMOGLOBIN 28.2 pg 25.7-32.2 (BEAKER) (test code = 751) MEAN CORPUSCULAR HEMOGLOBIN CONC 30.9 GM/DL 32.3-36.5 L (BEAKER) (test code = 752) RED CELL DISTRIBUTION WIDTH 13.7 % 11.6-14.4 (BEAKER) (test code = 412) PLATELET COUNT (BEAKER) (test 182 K/CU MM 150-450 code = 756) MEAN PLATELET VOLUME (BEAKER) 11.0 fL 9.4-12.4 (test code = 754) NUCLEATED RED BLOOD CELLS 0 /100 WBC 0-0 (BEAKER) (test code = 413) NEUTROPHILS RELATIVE PERCENT 61 % (BEAKER) (test code = 429) LYMPHOCYTES RELATIVE PERCENT 28 % (BEAKER) (test code = 430) MONOCYTES RELATIVE PERCENT 9 % (BEAKER) (test code = 431) EOSINOPHILS RELATIVE PERCENT 1 % (BEAKER) (test code = 432) BASOPHILS RELATIVE PERCENT 0 % (BEAKER) (test code = 437) NEUTROPHILS ABSOLUTE COUNT 3.58 K/ L 1.78-5.38 (BEAKER) (test code = 670) LYMPHOCYTES ABSOLUTE COUNT 1.61 K/ L 1.32-3.57 (BEAKER) (test code = 414) MONOCYTES ABSOLUTE COUNT (BEAKER) 0.55 K/ L 0.30-0.82 (test code = 415) EOSINOPHILS ABSOLUTE COUNT 0.06 K/ L 0.04-0.54 (BEAKER) (test code = 416) BASOPHILS ABSOLUTE COUNT (BEAKER) 0.02 K/ L 0.01-0.08 (test code = 417) IMMATURE GRANULOCYTES-RELATIVE 0 % 0-1 PERCENT (BEAKER) (test code = 2801) TACROLIMUS [id number] 14:39:00 Test Item Value Reference Range Interpretation Comments TACROLIMUS BLOOD (BEAKER) (test 7.4 ng/mL 10.0-20.0 L code = 657) URINALYSIS W/ REFLEX URINE [id number] 13:29:00 Test Item Value Reference Range Interpretation Comments COLOR (BEAKER) (test code = 470) Yellow CLARITY (BEAKER) (test code = 469) Clear SPECIFIC GRAVITY UA (BEAKER) (test 1.016 1.001-1.035 code = 468) PH UA (BEAKER) (test code = 467) 8.0 5.0-8.0 PROTEIN UA (BEAKER) (test code = Negative Negative 464) GLUCOSE UA (BEAKER) (test code = Negative Negative 365) KETONES UA (BEAKER) (test code = Negative Negative 371) BILIRUBIN UA (BEAKER) (test code = Negative Negative 462) BLOOD UA (BEAKER) (test code = 461) Negative Negative NITRITE UA (BEAKER) (test code = Negative Negative 465) LEUKOCYTE ESTERASE UA (BEAKER) Negative Negative (test code = 466) UROBILINOGEN UA (BEAKER) (test code 0.2 mg/dL 0.2-1.0 = 463) RBC UA (BEAKER) (test code = 519) 1 /HPF WBC UA (BEAKER) (test code = 520) 0 /HPF SQUAMOUS EPITHELIAL (BEAKER) (test 1 /HPF code = 516) SOURCE(BEAKER) (test code = 2795) COMPREHENSIVE METABOLIC [id number] 13:16:00 Test Item Value Reference Range Interpretation Comments TOTAL PROTEIN 7.1 gm/dL 6.0-8.3 (BEAKER) (test code = 770) ALBUMIN (BEAKER) 4.2 g/dL 3.5-5.0 (test code = 1145) ALKALINE PHOSPHATASE 107 U/L 40-150 (BEAKER) (test code = 346) BILIRUBIN TOTAL 0.5 mg/dL 0.2-1.2 (BEAKER) (test code = 377) SODIUM (BEAKER) 137 meq/L 136-145 (test code = 381) POTASSIUM (BEAKER) 6.0 meq/L 3.5-5.1 HH (test code = 379) CHLORIDE (BEAKER) 109 meq/L 98-107 H (test code = 382) CO2 (BEAKER) (test 22 meq/L 22-29 code = 355) BLOOD UREA NITROGEN 38 mg/dL 7-21 H (BEAKER) (test code = 354) CREATININE (BEAKER) 1.96 mg/dL 0.57-1.25 H (test code = 358) GLUCOSE RANDOM 94 mg/dL 70-105 (BEAKER) (test code = 652) CALCIUM (BEAKER) 10.5 mg/dL 8.4-10.2 H (test code = 697) AST (SGOT) (BEAKER) 14 U/L 5-34 (test code = 353) ALT (SGPT) (BEAKER) 7 U/L 6-55 (test code = 347) EGFR (BEAKER) (test mL/min/1.73 INSUFFIC IENT code = 1092) sq m CLINICAL DATA T O CALCULATE ESTIM ATED GFR. LACTATE DEHYDROGENASE (LDH)2017-02-16 13:00:00 Test Item Value Reference Range Interpretation Comments LACTATE DEHYDROGENASE (BEAKER) (test 162 U/L 125-220 code = 635) [id number] 12:59:00 Test Item Value Reference Range Interpretation Comments PHOSPHORUS (BEAKER) (test code = 2.1 mg/dL 2.3-4.7 L 604) CBC W/PLT COUNT & AUTO [id number] 11:50:00 Test Item Value Reference Range Interpretation Comments WHITE BLOOD CELL COUNT (BEAKER) 6.5 K/ L 3.5-10.5 (test code = 775) RED BLOOD CELL COUNT (BEAKER) 4.38 M/ L 4.63-6.08 L (test code = 761) HEMOGLOBIN (BEAKER) (test code = 12.2 GM/DL 13.7-17.5 L 410) HEMATOCRIT (BEAKER) (test code = 39.8 % 40.1-51.0 L 411) MEAN CORPUSCULAR VOLUME (BEAKER) 90.9 fL 79.0-92.2 (test code = 753) MEAN CORPUSCULAR HEMOGLOBIN 27.9 pg 25.7-32.2 (BEAKER) (test code = 751) MEAN CORPUSCULAR HEMOGLOBIN CONC 30.7 GM/DL 32.3-36.5 L (BEAKER) (test code = 752) RED CELL DISTRIBUTION WIDTH 13.8 % 11.6-14.4 (BEAKER) (test code = 412) PLATELET COUNT (BEAKER) (test 199 K/CU MM 150-450 code = 756) MEAN PLATELET VOLUME (BEAKER) 11.0 fL 9.4-12.4 (test code = 754) NUCLEATED RED BLOOD CELLS 0 /100 WBC 0-0 (BEAKER) (test code = 413) NEUTROPHILS RELATIVE PERCENT 71 % (BEAKER) (test code = 429) LYMPHOCYTES RELATIVE PERCENT 21 % (BEAKER) (test code = 430) MONOCYTES RELATIVE PERCENT 7 % (BEAKER) (test code = 431) EOSINOPHILS RELATIVE PERCENT 1 % (BEAKER) (test code = 432) BASOPHILS RELATIVE PERCENT 1 % (BEAKER) (test code = 437) NEUTROPHILS ABSOLUTE COUNT 4.60 K/ L 1.78-5.38 (BEAKER) (test code = 670) LYMPHOCYTES ABSOLUTE COUNT 1.38 K/ L 1.32-3.57 (BEAKER) (test code = 414) MONOCYTES ABSOLUTE COUNT (BEAKER) 0.45 K/ L 0.30-0.82 (test code = 415) EOSINOPHILS ABSOLUTE COUNT 0.03 K/ L 0.04-0.54 L (BEAKER) (test code = 416) BASOPHILS ABSOLUTE COUNT (BEAKER) 0.04 K/ L 0.01-0.08 (test code = 417) IMMATURE GRANULOCYTES-RELATIVE 0 % 0-1 PERCENT (BEAKER) (test code = 2801) TACROLIMUS [id number] 15:24:00 Test Item Value Reference Range Interpretation Comments TACROLIMUS BLOOD (BEAKER) (test 6.0 ng/mL 10.0-20.0 L code = 657) LACTATE DEHYDROGENASE (LDH)2017-02-09 12:12:00 Test Item Value Reference Range Interpretation Comments LACTATE DEHYDROGENASE 182 U/L 125-220 Specim en slightly (BEAKER) (test code = hemoly zed 635) COMPREHENSIVE METABOLIC [id number] 12:12:00 Test Item Value Reference Range Interpretation Comments TOTAL PROTEIN 6.7 gm/dL 6.0-8.3 Specimen sligh tly (BEAKER) (test code hemolyze d = 770) ALBUMIN (BEAKER) 3.9 g/dL 3.5-5.0 Specimen sl ightly (test code = 1145) hemolyzed ALKALINE PHOSPHATASE 110 U/L 40-150 (BEAKER) (test code = 346) BILIRUBIN TOTAL 0.4 mg/dL 0.2-1.2 Specimen sli ghtly (BEAKER) (test code hemolyze d = 377) SODIUM (BEAKER) 140 meq/L 136-145 (test code = 381) POTASSIUM (BEAKER) 5.6 meq/L 3.5-5.1 H Specimen slightly (test code = 379) hemolyzed CHLORIDE (BEAKER) 107 meq/L 98-107 (test code = 382) CO2 (BEAKER) (test 26 meq/L 22-29 code = 355) BLOOD UREA NITROGEN 33 mg/dL 7-21 H (BEAKER) (test code = 354) CREATININE (BEAKER) 1.83 mg/dL 0.57-1.25 H Specimen slightly (test code = 358) hemolyzed GLUCOSE RANDOM 75 mg/dL 70-105 (BEAKER) (test code = 652) CALCIUM (BEAKER) 10.7 mg/dL 8.4-10.2 H (test code = 697) AST (SGOT) (BEAKER) 14 U/L 5-34 Specimen slightly (test code = 353) hemolyzed ALT (SGPT) (BEAKER) 10 U/L 6-55 Specimen slightly (test code = 347) hemolyzed EGFR (BEAKER) (test mL/min/1.73 INSUFFIC IENT code = 1092) sq m CLINICAL DATA T O CALCULATE ESTIM ATED GFR. [id number] 12:01:00 Test Item Value Reference Range Interpretation Comments PHOSPHORUS (BEAKER) 2.0 mg/dL 2.3-4.7 L Specimen slightly (test code = 604) hemolyzed URINALYSIS W/ REFLEX URINE [id number] 11:36:00 Test Item Value Reference Range Interpretation Comments COLOR (BEAKER) (test code = 470) Yellow CLARITY (BEAKER) (test code = 469) Clear SPECIFIC GRAVITY UA (BEAKER) (test 1.020 1.001-1.035 code = 468) PH UA (BEAKER) (test code = 467) 7.5 5.0-8.0 PROTEIN UA (BEAKER) (test code = 10 mg/dL Negative A 464) GLUCOSE UA (BEAKER) (test code = Negative Negative 365) KETONES UA (BEAKER) (test code = Negative Negative 371) BILIRUBIN UA (BEAKER) (test code = Negative Negative 462) BLOOD UA (BEAKER) (test code = 461) Negative Negative NITRITE UA (BEAKER) (test code = Negative Negative 465) LEUKOCYTE ESTERASE UA (BEAKER) Negative Negative (test code = 466) UROBILINOGEN UA (BEAKER) (test code 0.2 mg/dL 0.2-1.0 = 463) RBC UA (BEAKER) (test code = 519) 0 /HPF WBC UA (BEAKER) (test code = 520) 1 /HPF SQUAMOUS EPITHELIAL (BEAKER) (test < /HPF code = 516) SOURCE(BEAKER) (test code = 2795) CBC W/PLT COUNT & AUTO [id number] 11:15:00 Test Item Value Reference Range Interpretation Comments WHITE BLOOD CELL COUNT (BEAKER) 6.6 K/ L 3.5-10.5 (test code = 775) RED BLOOD CELL COUNT (BEAKER) 4.11 M/ L 4.63-6.08 L (test code = 761) HEMOGLOBIN (BEAKER) (test code = 11.8 GM/DL 13.7-17.5 L 410) HEMATOCRIT (BEAKER) (test code = 37.3 % 40.1-51.0 L 411) MEAN CORPUSCULAR VOLUME (BEAKER) 90.8 fL 79.0-92.2 (test code = 753) MEAN CORPUSCULAR HEMOGLOBIN 28.7 pg 25.7-32.2 (BEAKER) (test code = 751) MEAN CORPUSCULAR HEMOGLOBIN CONC 31.6 GM/DL 32.3-36.5 L (BEAKER) (test code = 752) RED CELL DISTRIBUTION WIDTH 14.1 % 11.6-14.4 (BEAKER) (test code = 412) PLATELET COUNT (BEAKER) (test 194 K/CU MM 150-450 code = 756) MEAN PLATELET VOLUME (BEAKER) 10.6 fL 9.4-12.4 (test code = 754) NUCLEATED RED BLOOD CELLS 0 /100 WBC 0-0 (BEAKER) (test code = 413) NEUTROPHILS RELATIVE PERCENT 64 % (BEAKER) (test code = 429) LYMPHOCYTES RELATIVE PERCENT 26 % (BEAKER) (test code = 430) MONOCYTES RELATIVE PERCENT 7 % (BEAKER) (test code = 431) EOSINOPHILS RELATIVE PERCENT 1 % (BEAKER) (test code = 432) BASOPHILS RELATIVE PERCENT 0 % (BEAKER) (test code = 437) NEUTROPHILS ABSOLUTE COUNT 4.27 K/ L 1.78-5.38 (BEAKER) (test code = 670) LYMPHOCYTES ABSOLUTE COUNT 1.73 K/ L 1.32-3.57 (BEAKER) (test code = 414) MONOCYTES ABSOLUTE COUNT (BEAKER) 0.48 K/ L 0.30-0.82 (test code = 415) EOSINOPHILS ABSOLUTE COUNT 0.07 K/ L 0.04-0.54 (BEAKER) (test code = 416) BASOPHILS ABSOLUTE COUNT (BEAKER) 0.02 K/ L 0.01-0.08 (test code = 417) IMMATURE GRANULOCYTES-RELATIVE 1 % 0-1 PERCENT (BEAKER) (test code = 2801) TACROLIMUS [id number] 14:42:00 Test Item Value Reference Range Interpretation Comments TACROLIMUS BLOOD (BEAKER) (test 6.6 ng/mL 10.0-20.0 L code = 657) URINALYSIS W/ REFLEX URINE [id number] 13:16:00 Test Item Value Reference Range Interpretation Comments COLOR (BEAKER) (test code = 470) Yellow CLARITY (BEAKER) (test code = 469) Clear SPECIFIC GRAVITY UA (BEAKER) (test 1.019 1.001-1.035 code = 468) PH UA (BEAKER) (test code = 467) 5.5 5.0-8.0 PROTEIN UA (BEAKER) (test code = Negative Negative 464) GLUCOSE UA (BEAKER) (test code = Negative Negative 365) KETONES UA (BEAKER) (test code = Negative Negative 371) BILIRUBIN UA (BEAKER) (test code = Negative Negative 462) BLOOD UA (BEAKER) (test code = 461) Negative Negative NITRITE UA (BEAKER) (test code = Negative Negative 465) LEUKOCYTE ESTERASE UA (BEAKER) Negative Negative (test code = 466) UROBILINOGEN UA (BEAKER) (test code 0.2 mg/dL 0.2-1.0 = 463) RBC UA (BEAKER) (test code = 519) < /HPF WBC UA (BEAKER) (test code = 520) 0 /HPF SQUAMOUS EPITHELIAL (BEAKER) (test < /HPF code = 516) SOURCE(BEAKER) (test code = 2795) COMPREHENSIVE METABOLIC [id number] 12:49:00 Test Item Value Reference Range Interpretation Comments TOTAL PROTEIN 6.9 gm/dL 6.0-8.3 (BEAKER) (test code = 770) ALBUMIN (BEAKER) 4.1 g/dL 3.5-5.0 (test code = 1145) ALKALINE PHOSPHATASE 116 U/L 40-150 (BEAKER) (test code = 346) BILIRUBIN TOTAL 0.4 mg/dL 0.2-1.2 (BEAKER) (test code = 377) SODIUM (BEAKER) 141 meq/L 136-145 (test code = 381) POTASSIUM (BEAKER) 5.7 meq/L 3.5-5.1 H (test code = 379) CHLORIDE (BEAKER) 114 meq/L 98-107 H (test code = 382) CO2 (BEAKER) (test 19 meq/L 22-29 L code = 355) BLOOD UREA NITROGEN 33 mg/dL 7-21 H (BEAKER) (test code = 354) CREATININE (BEAKER) 1.59 mg/dL 0.57-1.25 H (test code = 358) GLUCOSE RANDOM 79 mg/dL 70-105 (BEAKER) (test code = 652) CALCIUM (BEAKER) 11.0 mg/dL 8.4-10.2 H (test code = 697) AST (SGOT) (BEAKER) 14 U/L 5-34 (test code = 353) ALT (SGPT) (BEAKER) 11 U/L 6-55 (test code = 347) EGFR (BEAKER) (test mL/min/1.73 INSUFFIC IENT code = 1092) sq m CLINICAL DATA T O CALCULATE ESTIM ATED GFR. [id number] 12:41:00 Test Item Value Reference Range Interpretation Comments PHOSPHORUS (BEAKER) (test code = 2.1 mg/dL 2.3-4.7 L 604) LACTATE DEHYDROGENASE (LDH)[id number] 12:41:00 Test Item Value Reference Range Interpretation Comments LACTATE DEHYDROGENASE (BEAKER) (test 167 U/L 125-220 code = 635) CBC W/PLT COUNT & AUTO [id number] 12:16:00 Test Item Value Reference Range Interpretation Comments WHITE BLOOD CELL COUNT (BEAKER) 5.3 K/ L 3.5-10.5 (test code = 775) RED BLOOD CELL COUNT (BEAKER) 4.23 M/ L 4.63-6.08 L (test code = 761) HEMOGLOBIN (BEAKER) (test code = 12.0 GM/DL 13.7-17.5 L 410) HEMATOCRIT (BEAKER) (test code = 38.4 % 40.1-51.0 L 411) MEAN CORPUSCULAR VOLUME (BEAKER) 90.8 fL 79.0-92.2 (test code = 753) MEAN CORPUSCULAR HEMOGLOBIN 28.4 pg 25.7-32.2 (BEAKER) (test code = 751) MEAN CORPUSCULAR HEMOGLOBIN CONC 31.3 GM/DL 32.3-36.5 L (BEAKER) (test code = 752) RED CELL DISTRIBUTION WIDTH 14.6 % 11.6-14.4 H (BEAKER) (test code = 412) PLATELET COUNT (BEAKER) (test 192 K/CU MM 150-450 code = 756) MEAN PLATELET VOLUME (BEAKER) 10.7 fL 9.4-12.4 (test code = 754) NUCLEATED RED BLOOD CELLS 0 /100 WBC 0-0 (BEAKER) (test code = 413) NEUTROPHILS RELATIVE PERCENT 57 % (BEAKER) (test code = 429) LYMPHOCYTES RELATIVE PERCENT 32 % (BEAKER) (test code = 430) MONOCYTES RELATIVE PERCENT 8 % (BEAKER) (test code = 431) EOSINOPHILS RELATIVE PERCENT 1 % (BEAKER) (test code = 432) BASOPHILS RELATIVE PERCENT 1 % (BEAKER) (test code = 437) NEUTROPHILS ABSOLUTE COUNT 3.05 K/ L 1.78-5.38 (BEAKER) (test code = 670) LYMPHOCYTES ABSOLUTE COUNT 1.70 K/ L 1.32-3.57 (BEAKER) (test code = 414) MONOCYTES ABSOLUTE COUNT (BEAKER) 0.45 K/ L 0.30-0.82 (test code = 415) EOSINOPHILS ABSOLUTE COUNT 0.07 K/ L 0.04-0.54 (BEAKER) (test code = 416) BASOPHILS ABSOLUTE COUNT (BEAKER) 0.04 K/ L 0.01-0.08 (test code = 417) IMMATURE GRANULOCYTES-RELATIVE 0 % 0-1 PERCENT (BEAKER) (test code = 2801) COMPREHENSIVE METABOLIC [id number] 11:33:00 Test Item Value Reference Range Interpretation Comments TOTAL PROTEIN 6.9 gm/dL 6.0-8.3 (BEAKER) (test code = 770) ALBUMIN (BEAKER) 4.0 g/dL 3.5-5.0 (test code = 1145) ALKALINE PHOSPHATASE 103 U/L 40-150 (BEAKER) (test code = 346) BILIRUBIN TOTAL 0.5 mg/dL 0.2-1.2 (BEAKER) (test code = 377) SODIUM (BEAKER) 140 meq/L 136-145 (test code = 381) POTASSIUM (BEAKER) 4.8 meq/L 3.5-5.1 (test code = 379) CHLORIDE (BEAKER) 111 meq/L 98-107 H (test code = 382) CO2 (BEAKER) (test 23 meq/L 22-29 code = 355) BLOOD UREA NITROGEN 40 mg/dL 7-21 H (BEAKER) (test code = 354) CREATININE (BEAKER) 1.68 mg/dL 0.57-1.25 H (test code = 358) GLUCOSE RANDOM 100 mg/dL 70-105 (BEAKER) (test code = 652) CALCIUM (BEAKER) 10.7 mg/dL 8.4-10.2 H (test code = 697) AST (SGOT) (BEAKER) 12 U/L 5-34 (test code = 353) ALT (SGPT) (BEAKER) 10 U/L 6-55 (test code = 347) EGFR (BEAKER) (test mL/min/1.73 INSUFFIC IENT code = 1092) sq m CLINICAL DATA T O CALCULATE ESTIM ATED GFR. BK VIRUS PCR, [id number] 13:46:00 Test Item Value Reference Range Interpretation Comments BK VIRUS, PLASMA, NEG Negative or below the (BEAKER) (test code = linear range of the 2145) assay (<1,000 copies/mL) Patients may have replicating BK Virus which is of no clinical significance. Viral load measurements are helpful to identify BK Virus replication of potential clinical significance. Consensus recommendations have been published of threshold values for the presumptive diagnosis of polyomavirus-associated nephropathy (Transplantation 2005;[id number]).A BK Virus load greater than 5,000-10,000 copies/mL in the plasma is consistent with the presumptive diagnosis of polyoma-associated nephropathy in renal transplant recipients.BK Virus DNA was assessed using quantitative polymerase chain reaction and fluorescent monitoring of a specific hybridized probe. Genetic variation and other factors can affect the accuracy of nucleic acid testing. Therefore, the results should be interpreted in light of clinical data.This test was developed and its performance characteristics determined by the [facility] Pathology Department, Section of Molecular Pathology. It has not been cleared or approved by the U.S. Food and Drug Administration (FDA). Since FDA approval is not required for clinicaluse of the test, validation was done as required by the Clinical Laboratory Improvement Amendments of 1988.[id number] 15:36:00 Test Item Value Reference Range Interpretation Comments POTASSIUM (BEAKER) (test code = 6.3 meq/L 3.5-5.1 HH 379) TACROLIMUS [id number] 13:56:00 Test Item Value Reference Range Interpretation Comments TACROLIMUS BLOOD (BEAKER) (test 7.0 ng/mL 10.0-20.0 L code = 657) COMPREHENSIVE METABOLIC [id number] 10:26:00 Test Item Value Reference Range Interpretation Comments TOTAL PROTEIN 7.0 gm/dL 6.0-8.3 Specimen sligh tly (BEAKER) (test code hemolyze d = 770) ALBUMIN (BEAKER) 4.0 g/dL 3.5-5.0 Specimen sl ightly (test code = 1145) hemolyzed ALKALINE PHOSPHATASE 118 U/L 40-150 (BEAKER) (test code = 346) BILIRUBIN TOTAL 0.3 mg/dL 0.2-1.2 Specimen sli ghtly (BEAKER) (test code hemolyze d = 377) SODIUM (BEAKER) 136 meq/L 136-145 (test code = 381) POTASSIUM (BEAKER) 5.9 meq/L 3.5-5.1 H Specimen slightly (test code = 379) hemolyzed CHLORIDE (BEAKER) 113 meq/L 98-107 H (test code = 382) CO2 (BEAKER) (test 16 meq/L 22-29 L code = 355) BLOOD UREA NITROGEN 34 mg/dL 7-21 H (BEAKER) (test code = 354) CREATININE (BEAKER) 1.54 mg/dL 0.57-1.25 H Specimen slightly (test code = 358) hemolyzed GLUCOSE RANDOM 84 mg/dL 70-105 (BEAKER) (test code = 652) CALCIUM (BEAKER) 10.9 mg/dL 8.4-10.2 H (test code = 697) AST (SGOT) (BEAKER) 14 U/L 5-34 Specimen slightly (test code = 353) hemolyzed ALT (SGPT) (BEAKER) 10 U/L 6-55 Specimen slightly (test code = 347) hemolyzed EGFR (BEAKER) (test mL/min/1.73 INSUFFIC IENT code = 1092) sq m CLINICAL DATA T O CALCULATE ESTIM ATED GFR. LACTATE DEHYDROGENASE (LDH)[id number] 10:26:00 Test Item Value Reference Range Interpretation Comments LACTATE DEHYDROGENASE 189 U/L 125-220 Specim en slightly (BEAKER) (test code = hemoly zed 635) [id number] 10:16:00 Test Item Value Reference Range Interpretation Comments PHOSPHORUS (BEAKER) 2.8 mg/dL 2.3-4.7 Specimen slightly (test code = 604) hemolyzed URINALYSIS W/ REFLEX URINE [id number] 10:06:00 Test Item Value Reference Range Interpretation Comments COLOR (BEAKER) (test code = 470) Yellow CLARITY (BEAKER) (test code = 469) Clear SPECIFIC GRAVITY UA (BEAKER) (test 1.020 1.001-1.035 code = 468) PH UA (BEAKER) (test code = 467) 5.5 5.0-8.0 PROTEIN UA (BEAKER) (test code = Negative Negative 464) GLUCOSE UA (BEAKER) (test code = Negative Negative 365) KETONES UA (BEAKER) (test code = Negative Negative 371) BILIRUBIN UA (BEAKER) (test code = Negative Negative 462) BLOOD UA (BEAKER) (test code = 461) Negative Negative NITRITE UA (BEAKER) (test code = Negative Negative 465) LEUKOCYTE ESTERASE UA (BEAKER) Negative Negative (test code = 466) UROBILINOGEN UA (BEAKER) (test code 0.2 mg/dL 0.2-1.0 = 463) RBC UA (BEAKER) (test code = 519) 0 /HPF WBC UA (BEAKER) (test code = 520) < /HPF SQUAMOUS EPITHELIAL (BEAKER) (test < /HPF code = 516) HYALINE CASTS (BEAKER) (test code = 2 /LPF 514) SOURCE(BEAKER) (test code = 2795) CBC W/PLT COUNT & AUTO [id number] 09:29:00 Test Item Value Reference Range Interpretation Comments WHITE BLOOD CELL COUNT (BEAKER) 6.7 K/ L 3.5-10.5 (test code = 775) RED BLOOD CELL COUNT (BEAKER) 4.42 M/ L 4.63-6.08 L (test code = 761) HEMOGLOBIN (BEAKER) (test code = 12.5 GM/DL 13.7-17.5 L 410) HEMATOCRIT (BEAKER) (test code = 39.6 % 40.1-51.0 L 411) MEAN CORPUSCULAR VOLUME (BEAKER) 89.6 fL 79.0-92.2 (test code = 753) MEAN CORPUSCULAR HEMOGLOBIN 28.3 pg 25.7-32.2 (BEAKER) (test code = 751) MEAN CORPUSCULAR HEMOGLOBIN CONC 31.6 GM/DL 32.3-36.5 L (BEAKER) (test code = 752) RED CELL DISTRIBUTION WIDTH 14.3 % 11.6-14.4 (BEAKER) (test code = 412) PLATELET COUNT (BEAKER) (test 196 K/CU MM 150-450 code = 756) MEAN PLATELET VOLUME (BEAKER) 10.8 fL 9.4-12.4 (test code = 754) NUCLEATED RED BLOOD CELLS 0 /100 WBC 0-0 (BEAKER) (test code = 413) NEUTROPHILS RELATIVE PERCENT 62 % (BEAKER) (test code = 429) LYMPHOCYTES RELATIVE PERCENT 28 % (BEAKER) (test code = 430) MONOCYTES RELATIVE PERCENT 8 % (BEAKER) (test code = 431) EOSINOPHILS RELATIVE PERCENT 1 % (BEAKER) (test code = 432) BASOPHILS RELATIVE PERCENT 1 % (BEAKER) (test code = 437) NEUTROPHILS ABSOLUTE COUNT 4.17 K/ L 1.78-5.38 (BEAKER) (test code = 670) LYMPHOCYTES ABSOLUTE COUNT 1.86 K/ L 1.32-3.57 (BEAKER) (test code = 414) MONOCYTES ABSOLUTE COUNT (BEAKER) 0.52 K/ L 0.30-0.82 (test code = 415) EOSINOPHILS ABSOLUTE COUNT 0.06 K/ L 0.04-0.54 (BEAKER) (test code = 416) BASOPHILS ABSOLUTE COUNT (BEAKER) 0.04 K/ L 0.01-0.08 (test code = 417) IMMATURE GRANULOCYTES-RELATIVE 1 % 0-1 PERCENT (BEAKER) (test code = 2801) TACROLIMUS [id number] 13:03:00 Test Item Value Reference Range Interpretation Comments TACROLIMUS BLOOD (BEAKER) (test 9.4 ng/mL 10.0-20.0 L code = 657) COMPREHENSIVE METABOLIC [id number] 12:11:00 Test Item Value Reference Range Interpretation Comments TOTAL PROTEIN 7.0 gm/dL 6.0-8.3 (BEAKER) (test code = 770) ALBUMIN (BEAKER) 4.1 g/dL 3.5-5.0 (test code = 1145) ALKALINE PHOSPHATASE 116 U/L 40-150 (BEAKER) (test code = 346) BILIRUBIN TOTAL 0.3 mg/dL 0.2-1.2 (BEAKER) (test code = 377) SODIUM (BEAKER) 135 meq/L 136-145 L (test code = 381) POTASSIUM (BEAKER) 5.3 meq/L 3.5-5.1 H (test code = 379) CHLORIDE (BEAKER) 112 meq/L 98-107 H (test code = 382) CO2 (BEAKER) (test 14 meq/L 22-29 L code = 355) BLOOD UREA NITROGEN 36 mg/dL 7-21 H (BEAKER) (test code = 354) CREATININE (BEAKER) 2.06 mg/dL 0.57-1.25 H (test code = 358) GLUCOSE RANDOM 93 mg/dL 70-105 (BEAKER) (test code = 652) CALCIUM (BEAKER) 10.9 mg/dL 8.4-10.2 H (test code = 697) AST (SGOT) (BEAKER) 15 U/L 5-34 (test code = 353) ALT (SGPT) (BEAKER) 7 U/L 6-55 (test code = 347) EGFR (BEAKER) (test mL/min/1.73 INSUFFIC IENT code = 1092) sq m CLINICAL DATA T O CALCULATE ESTIM ATED GFR. [id number] 11:40:00 Test Item Value Reference Range Interpretation Comments PHOSPHORUS (BEAKER) (test code = 2.8 mg/dL 2.3-4.7 604) LACTATE DEHYDROGENASE (LDH)2016-12-13 11:40:00 Test Item Value Reference Range Interpretation Comments LACTATE DEHYDROGENASE (BEAKER) (test 223 U/L 125-220 H code = 635) URINALYSIS W/ REFLEX URINE [id number] 10:53:00 Test Item Value Reference Range Interpretation Comments COLOR (BEAKER) (test code = 470) Yellow CLARITY (BEAKER) (test code = 469) Clear SPECIFIC GRAVITY UA (BEAKER) (test 1.019 1.001-1.035 code = 468) PH UA (BEAKER) (test code = 467) 5.0 5.0-8.0 PROTEIN UA (BEAKER) (test code = Negative Negative 464) GLUCOSE UA (BEAKER) (test code = Negative Negative 365) KETONES UA (BEAKER) (test code = Negative Negative 371) BILIRUBIN UA (BEAKER) (test code = Negative Negative 462) BLOOD UA (BEAKER) (test code = 461) Negative Negative NITRITE UA (BEAKER) (test code = Negative Negative 465) LEUKOCYTE ESTERASE UA (BEAKER) Negative Negative (test code = 466) UROBILINOGEN UA (BEAKER) (test code 0.2 mg/dL 0.2-1.0 = 463) RBC UA (BEAKER) (test code = 519) 1 /HPF WBC UA (BEAKER) (test code = 520) 1 /HPF SQUAMOUS EPITHELIAL (BEAKER) (test < /HPF code = 516) SOURCE(BEAKER) (test code = 2795) CBC W/PLT COUNT & AUTO [id number] 10:12:00 Test Item Value Reference Range Interpretation Comments WHITE BLOOD CELL COUNT (BEAKER) 5.8 K/ L 3.5-10.5 (test code = 775) RED BLOOD CELL COUNT (BEAKER) 4.28 M/ L 4.63-6.08 L (test code = 761) HEMOGLOBIN (BEAKER) (test code = 12.1 GM/DL 13.7-17.5 L 410) HEMATOCRIT (BEAKER) (test code = 37.4 % 40.1-51.0 L 411) MEAN CORPUSCULAR VOLUME (BEAKER) 87.4 fL 79.0-92.2 (test code = 753) MEAN CORPUSCULAR HEMOGLOBIN 28.3 pg 25.7-32.2 (BEAKER) (test code = 751) MEAN CORPUSCULAR HEMOGLOBIN CONC 32.4 GM/DL 32.3-36.5 (BEAKER) (test code = 752) RED CELL DISTRIBUTION WIDTH 14.7 % 11.6-14.4 H (BEAKER) (test code = 412) PLATELET COUNT (BEAKER) (test 206 K/CU MM 150-450 code = 756) MEAN PLATELET VOLUME (BEAKER) 10.8 fL 9.4-12.4 (test code = 754) NUCLEATED RED BLOOD CELLS 0 /100 WBC 0-0 (BEAKER) (test code = 413) NEUTROPHILS RELATIVE PERCENT 63 % (BEAKER) (test code = 429) LYMPHOCYTES RELATIVE PERCENT 27 % (BEAKER) (test code = 430) MONOCYTES RELATIVE PERCENT 8 % (BEAKER) (test code = 431) EOSINOPHILS RELATIVE PERCENT 1 % (BEAKER) (test code = 432) BASOPHILS RELATIVE PERCENT 1 % (BEAKER) (test code = 437) NEUTROPHILS ABSOLUTE COUNT 3.66 K/ L 1.78-5.38 (BEAKER) (test code = 670) LYMPHOCYTES ABSOLUTE COUNT 1.56 K/ L 1.32-3.57 (BEAKER) (test code = 414) MONOCYTES ABSOLUTE COUNT (BEAKER) 0.48 K/ L 0.30-0.82 (test code = 415) EOSINOPHILS ABSOLUTE COUNT 0.05 K/ L 0.04-0.54 (BEAKER) (test code = 416) BASOPHILS ABSOLUTE COUNT (BEAKER) 0.03 K/ L 0.01-0.08 (test code = 417) IMMATURE GRANULOCYTES-RELATIVE 1 % 0-1 PERCENT (BEAKER) (test code = 2801) URINALYSIS W/ REFLEX URINE [id number] 14:51:00 Test Item Value Reference Range Interpretation Comments COLOR (BEAKER) (test code = 470) Yellow CLARITY (BEAKER) (test code = 469) Clear SPECIFIC GRAVITY UA (BEAKER) (test 1.010 1.001-1.035 code = 468) PH UA (BEAKER) (test code = 467) 6.5 5.0-8.0 PROTEIN UA (BEAKER) (test code = Negative Negative 464) GLUCOSE UA (BEAKER) (test code = Negative Negative 365) KETONES UA (BEAKER) (test code = Negative Negative 371) BILIRUBIN UA (BEAKER) (test code = Negative Negative 462) BLOOD UA (BEAKER) (test code = 461) Negative Negative NITRITE UA (BEAKER) (test code = Negative Negative 465) LEUKOCYTE ESTERASE UA (BEAKER) Negative Negative (test code = 466) UROBILINOGEN UA (BEAKER) (test code 0.2 mg/dL 0.2-1.0 = 463) RBC UA (BEAKER) (test code = 519) < /HPF WBC UA (BEAKER) (test code = 520) 1 /HPF MUCUS (BEAKER) (test code = 1574) Rare HYALINE CASTS (BEAKER) (test code = 2 /LPF 514) SOURCE(BEAKER) (test code = 1558) TACROLIMUS [id number] 13:21:00 Test Item Value Reference Range Interpretation Comments TACROLIMUS BLOOD (BEAKER) (test 6.6 ng/mL 10.0-20.0 L code = 657) COMPREHENSIVE METABOLIC [id number] 10:32:00 Test Item Value Reference Range Interpretation Comments TOTAL PROTEIN 6.5 gm/dL 6.0-8.3 (BEAKER) (test code = 770) ALBUMIN (BEAKER) 3.8 g/dL 3.5-5.0 (test code = 1145) ALKALINE PHOSPHATASE 116 U/L 40-150 (BEAKER) (test code = 346) BILIRUBIN TOTAL 0.3 mg/dL 0.2-1.2 (BEAKER) (test code = 377) SODIUM (BEAKER) 137 meq/L 136-145 (test code = 381) POTASSIUM (BEAKER) 4.9 meq/L 3.5-5.1 (test code = 379) CHLORIDE (BEAKER) 109 meq/L 98-107 H (test code = 382) CO2 (BEAKER) (test 21 meq/L 22-29 L code = 355) BLOOD UREA NITROGEN 28 mg/dL 7-21 H (BEAKER) (test code = 354) CREATININE (BEAKER) 1.87 mg/dL 0.57-1.25 H (test code = 358) GLUCOSE RANDOM 85 mg/dL 70-105 (BEAKER) (test code = 652) CALCIUM (BEAKER) 10.4 mg/dL 8.4-10.2 H (test code = 697) AST (SGOT) (BEAKER) 15 U/L 5-34 (test code = 353) ALT (SGPT) (BEAKER) 11 U/L 6-55 (test code = 347) EGFR (BEAKER) (test mL/min/1.73 INSUFFIC IENT code = 1092) sq m CLINICAL DATA T O CALCULATE ESTIM ATED GFR. [id number] 10:13:00 Test Item Value Reference Range Interpretation Comments PHOSPHORUS (BEAKER) (test code = 2.7 mg/dL 2.3-4.7 604) LACTATE DEHYDROGENASE (LDH)2016-12-05 10:13:00 Test Item Value Reference Range Interpretation Comments LACTATE DEHYDROGENASE (BEAKER) (test 176 U/L 125-220 code = 635) CBC W/PLT COUNT & AUTO [id number] 09:58:00 Test Item Value Reference Range Interpretation Comments WHITE BLOOD CELL COUNT (BEAKER) 6.9 K/ L 3.5-10.5 (test code = 775) RED BLOOD CELL COUNT (BEAKER) 4.15 M/ L 4.63-6.08 L (test code = 761) HEMOGLOBIN (BEAKER) (test code = 11.8 GM/DL 13.7-17.5 L 410) HEMATOCRIT (BEAKER) (test code = 36.8 % 40.1-51.0 L 411) MEAN CORPUSCULAR VOLUME (BEAKER) 88.7 fL 79.0-92.2 (test code = 753) MEAN CORPUSCULAR HEMOGLOBIN 28.4 pg 25.7-32.2 (BEAKER) (test code = 751) MEAN CORPUSCULAR HEMOGLOBIN CONC 32.1 GM/DL 32.3-36.5 L (BEAKER) (test code = 752) RED CELL DISTRIBUTION WIDTH 14.7 % 11.6-14.4 H (BEAKER) (test code = 412) PLATELET COUNT (BEAKER) (test 175 K/CU MM 150-450 code = 756) MEAN PLATELET VOLUME (BEAKER) 11.1 fL 9.4-12.4 (test code = 754) NUCLEATED RED BLOOD CELLS 0 /100 WBC 0-0 (BEAKER) (test code = 413) NEUTROPHILS RELATIVE PERCENT 67 % (BEAKER) (test code = 429) LYMPHOCYTES RELATIVE PERCENT 24 % (BEAKER) (test code = 430) MONOCYTES RELATIVE PERCENT 7 % (BEAKER) (test code = 431) EOSINOPHILS RELATIVE PERCENT 1 % (BEAKER) (test code = 432) BASOPHILS RELATIVE PERCENT 1 % (BEAKER) (test code = 437) NEUTROPHILS ABSOLUTE COUNT 4.63 K/ L 1.78-5.38 (BEAKER) (test code = 670) LYMPHOCYTES ABSOLUTE COUNT 1.68 K/ L 1.32-3.57 (BEAKER) (test code = 414) MONOCYTES ABSOLUTE COUNT (BEAKER) 0.46 K/ L 0.30-0.82 (test code = 415) EOSINOPHILS ABSOLUTE COUNT 0.06 K/ L 0.04-0.54 (BEAKER) (test code = 416) BASOPHILS ABSOLUTE COUNT (BEAKER) 0.04 K/ L 0.01-0.08 (test code = 417) IMMATURE GRANULOCYTES-RELATIVE 1 % 0-1 PERCENT (BEAKER) (test code = 2801) TACROLIMUS [id number] 13:04:00 Test Item Value Reference Range Interpretation Comments TACROLIMUS BLOOD (BEAKER) (test 9.6 ng/mL 10.0-20.0 L code = 657) URINALYSIS W/ REFLEX URINE [id number] 10:47:00 Test Item Value Reference Range Interpretation Comments COLOR (BEAKER) (test code = 470) Yellow CLARITY (BEAKER) (test code = 469) Clear SPECIFIC GRAVITY UA (BEAKER) (test 1.018 1.001-1.035 code = 468) PH UA (BEAKER) (test code = 467) 5.0 5.0-8.0 PROTEIN UA (BEAKER) (test code = Negative Negative 464) GLUCOSE UA (BEAKER) (test code = Negative Negative 365) KETONES UA (BEAKER) (test code = Negative Negative 371) BILIRUBIN UA (BEAKER) (test code = Negative Negative 462) BLOOD UA (BEAKER) (test code = 461) Negative Negative NITRITE UA (BEAKER) (test code = Negative Negative 465) LEUKOCYTE ESTERASE UA (BEAKER) Negative Negative (test code = 466) UROBILINOGEN UA (BEAKER) (test code 0.2 mg/dL 0.2-1.0 = 463) RBC UA (BEAKER) (test code = 519) 1 /HPF WBC UA (BEAKER) (test code = 520) < /HPF SQUAMOUS EPITHELIAL (BEAKER) (test < /HPF code = 516) SOURCE(BEAKER) (test code = 2795) COMPREHENSIVE METABOLIC [id number] 09:38:00 Test Item Value Reference Range Interpretation Comments TOTAL PROTEIN 6.8 gm/dL 6.0-8.3 (BEAKER) (test code = 770) ALBUMIN (BEAKER) 4.0 g/dL 3.5-5.0 (test code = 1145) ALKALINE PHOSPHATASE 114 U/L 40-150 (BEAKER) (test code = 346) BILIRUBIN TOTAL 0.3 mg/dL 0.2-1.2 (BEAKER) (test code = 377) SODIUM (BEAKER) 136 meq/L 136-145 (test code = 381) POTASSIUM (BEAKER) 5.3 meq/L 3.5-5.1 H (test code = 379) CHLORIDE (BEAKER) 111 meq/L 98-107 H (test code = 382) CO2 (BEAKER) (test 16 meq/L 22-29 L code = 355) BLOOD UREA NITROGEN 38 mg/dL 7-21 H (BEAKER) (test code = 354) CREATININE (BEAKER) 2.12 mg/dL 0.57-1.25 H (test code = 358) GLUCOSE RANDOM 92 mg/dL 70-105 (BEAKER) (test code = 652) CALCIUM (BEAKER) 11.2 mg/dL 8.4-10.2 H (test code = 697) AST (SGOT) (BEAKER) 13 U/L 5-34 (test code = 353) ALT (SGPT) (BEAKER) 11 U/L 6-55 (test code = 347) EGFR (BEAKER) (test mL/min/1.73 INSUFFIC IENT code = 1092) sq m CLINICAL DATA T O CALCULATE ESTIM ATED GFR. [id number] 09:37:00 Test Item Value Reference Range Interpretation Comments PHOSPHORUS (BEAKER) (test code = 2.3 mg/dL 2.3-4.7 604) LACTATE DEHYDROGENASE (LDH)2016-11-29 09:37:00 Test Item Value Reference Range Interpretation Comments LACTATE DEHYDROGENASE (BEAKER) (test 141 U/L 125-220 code = 635) CBC W/PLT COUNT & AUTO [id number] 09:05:00 Test Item Value Reference Range Interpretation Comments WHITE BLOOD CELL COUNT (BEAKER) 5.6 K/ L 3.5-10.5 (test code = 775) RED BLOOD CELL COUNT (BEAKER) 4.21 M/ L 4.63-6.08 L (test code = 761) HEMOGLOBIN (BEAKER) (test code = 11.8 GM/DL 13.7-17.5 L 410) HEMATOCRIT (BEAKER) (test code = 36.7 % 40.1-51.0 L 411) MEAN CORPUSCULAR VOLUME (BEAKER) 87.2 fL 79.0-92.2 (test code = 753) MEAN CORPUSCULAR HEMOGLOBIN 28.0 pg 25.7-32.2 (BEAKER) (test code = 751) MEAN CORPUSCULAR HEMOGLOBIN CONC 32.2 GM/DL 32.3-36.5 L (BEAKER) (test code = 752) RED CELL DISTRIBUTION WIDTH 14.9 % 11.6-14.4 H (BEAKER) (test code = 412) PLATELET COUNT (BEAKER) (test 194 K/CU MM 150-450 code = 756) MEAN PLATELET VOLUME (BEAKER) 10.9 fL 9.4-12.4 (test code = 754) NUCLEATED RED BLOOD CELLS 0 /100 WBC 0-0 (BEAKER) (test code = 413) NEUTROPHILS RELATIVE PERCENT 55 % (BEAKER) (test code = 429) LYMPHOCYTES RELATIVE PERCENT 36 % (BEAKER) (test code = 430) MONOCYTES RELATIVE PERCENT 7 % (BEAKER) (test code = 431) EOSINOPHILS RELATIVE PERCENT 1 % (BEAKER) (test code = 432) BASOPHILS RELATIVE PERCENT 0 % (BEAKER) (test code = 437) NEUTROPHILS ABSOLUTE COUNT 3.07 K/ L 1.78-5.38 (BEAKER) (test code = 670) LYMPHOCYTES ABSOLUTE COUNT 2.03 K/ L 1.32-3.57 (BEAKER) (test code = 414) MONOCYTES ABSOLUTE COUNT (BEAKER) 0.36 K/ L 0.30-0.82 (test code = 415) EOSINOPHILS ABSOLUTE COUNT 0.07 K/ L 0.04-0.54 (BEAKER) (test code = 416) BASOPHILS ABSOLUTE COUNT (BEAKER) 0.02 K/ L 0.01-0.08 (test code = 417) IMMATURE GRANULOCYTES-RELATIVE 0 % 0-1 PERCENT (BEAKER) (test code = 2801) TACROLIMUS [id number] 12:07:00 Test Item Value Reference Range Interpretation Comments TACROLIMUS BLOOD (BEAKER) (test 7.9 ng/mL 10.0-20.0 L code = 657) URINALYSIS W/ REFLEX URINE [id number] 10:06:00 Test Item Value Reference Range Interpretation Comments COLOR (BEAKER) (test code = 470) Yellow CLARITY (BEAKER) (test code = 469) Clear SPECIFIC GRAVITY UA (BEAKER) (test 1.016 1.001-1.035 code = 468) PH UA (BEAKER) (test code = 467) 5.5 5.0-8.0 PROTEIN UA (BEAKER) (test code = Negative Negative 464) GLUCOSE UA (BEAKER) (test code = Negative Negative 365) KETONES UA (BEAKER) (test code = Negative Negative 371) BILIRUBIN UA (BEAKER) (test code = Negative Negative 462) BLOOD UA (BEAKER) (test code = 461) Negative Negative NITRITE UA (BEAKER) (test code = Negative Negative 465) LEUKOCYTE ESTERASE UA (BEAKER) Negative Negative (test code = 466) UROBILINOGEN UA (BEAKER) (test code 0.2 mg/dL 0.2-1.0 = 463) RBC UA (BEAKER) (test code = 519) 2 /HPF WBC UA (BEAKER) (test code = 520) < /HPF SQUAMOUS EPITHELIAL (BEAKER) (test 1 /HPF code = 516) HYALINE CASTS (BEAKER) (test code = 3 /LPF 514) SOURCE(BEAKER) (test code = 2795) COMPREHENSIVE METABOLIC [id number] 09:59:00 Test Item Value Reference Range Interpretation Comments TOTAL PROTEIN 7.1 gm/dL 6.0-8.3 (BEAKER) (test code = 770) ALBUMIN (BEAKER) 4.2 g/dL 3.5-5.0 (test code = 1145) ALKALINE PHOSPHATASE 99 U/L 40-150 (BEAKER) (test code = 346) BILIRUBIN TOTAL 0.6 mg/dL 0.2-1.2 (BEAKER) (test code = 377) SODIUM (BEAKER) 139 meq/L 136-145 (test code = 381) POTASSIUM (BEAKER) 5.2 meq/L 3.5-5.1 H (test code = 379) CHLORIDE (BEAKER) 109 meq/L 98-107 H (test code = 382) CO2 (BEAKER) (test 22 meq/L 22-29 code = 355) BLOOD UREA NITROGEN 34 mg/dL 7-21 H (BEAKER) (test code = 354) CREATININE (BEAKER) 1.87 mg/dL 0.57-1.25 H (test code = 358) GLUCOSE RANDOM 83 mg/dL 70-105 (BEAKER) (test code = 652) CALCIUM (BEAKER) 11.9 mg/dL 8.4-10.2 H (test code = 697) AST (SGOT) (BEAKER) 14 U/L 5-34 (test code = 353) ALT (SGPT) (BEAKER) 9 U/L 6-55 (test code = 347) EGFR (BEAKER) (test mL/min/1.73 INSUFFIC IENT code = 1092) sq m CLINICAL DATA T O CALCULATE ESTIM ATED GFR. [id number] 09:58:00 Test Item Value Reference Range Interpretation Comments PHOSPHORUS (BEAKER) (test code = 2.3 mg/dL 2.3-4.7 604) LACTATE DEHYDROGENASE (LDH)[id number] 09:58:00 Test Item Value Reference Range Interpretation Comments LACTATE DEHYDROGENASE (BEAKER) (test 178 U/L 125-220 code = 635) CBC W/PLT COUNT & AUTO [id number] 09:31:00 Test Item Value Reference Range Interpretation Comments WHITE BLOOD CELL COUNT (BEAKER) 5.9 K/ L 4.0-10.0 (test code = 775) RED BLOOD CELL COUNT (BEAKER) 4.28 M/ L 4.20-5.80 (test code = 761) HEMOGLOBIN (BEAKER) (test code = 12.6 GM/DL 13.0-16.8 L 410) HEMATOCRIT (BEAKER) (test code = 38.4 % 40.0-50.0 L 411) MEAN CORPUSCULAR VOLUME (BEAKER) 89.6 fL 82.0-98.0 (test code = 753) MEAN CORPUSCULAR HEMOGLOBIN 29.4 pg 27.0-33.0 (BEAKER) (test code = 751) MEAN CORPUSCULAR HEMOGLOBIN CONC 32.8 GM/DL 32.0-36.0 (BEAKER) (test code = 752) RED CELL DISTRIBUTION WIDTH 14.2 % 10.3-14.2 (BEAKER) (test code = 412) PLATELET COUNT (BEAKER) (test 201 K/CU MM 150-430 code = 756) MEAN PLATELET VOLUME (BEAKER) 8.0 fL 6.5-10.5 (test code = 754) NUCLEATED RED BLOOD CELLS 0 /100 WBC 0-0 (BEAKER) (test code = 413) NEUTROPHILS RELATIVE PERCENT 62 % (BEAKER) (test code = 429) LYMPHOCYTES RELATIVE PERCENT 28 % (BEAKER) (test code = 430) MONOCYTES RELATIVE PERCENT 8 % (BEAKER) (test code = 431) EOSINOPHILS RELATIVE PERCENT 1 % (BEAKER) (test code = 432) BASOPHILS RELATIVE PERCENT 1 % (BEAKER) (test code = 437) NEUTROPHILS ABSOLUTE COUNT 3.67 K/ L 1.80-8.00 (BEAKER) (test code = 670) LYMPHOCYTES ABSOLUTE COUNT 1.68 K/ L 1.48-4.50 (BEAKER) (test code = 414) MONOCYTES ABSOLUTE COUNT (BEAKER) 0.47 K/ L 0.00-1.30 (test code = 415) EOSINOPHILS ABSOLUTE COUNT 0.07 K/ L 0.00-0.50 (BEAKER) (test code = 416) BASOPHILS ABSOLUTE COUNT (BEAKER) 0.04 K/ L 0.00-0.20 (test code = 417) 0.00URINE PROTEIN ELECTROPHORESIS, [id number] 11:51:00 Test Item Value Reference Range Interpretation Comments PROTEIN, URINE 12 mg/dL 0-14 (BEAKER) (test code = 1569) ALBUMIN URINE ELP 33.6 % (BEAKER) (test code = 1018) GAMMA GLOBULIN URINE 66.4 % (BEAKER) (test code = 1015) UPEP, ID-[id number] (BEAKER) No monoclonal bands (test code = 2604) detected. [id number] Ariana Yanes MD ([facility]) (test code = (electronic signature) 1521) PROTEIN ELECTROPHORESIS, [id number] 11:45:00 Test Item Value Reference Range Interpretation Comments ALBUMIN FRACTION 3.2 g/dL 3.5-5.5 L (BEAKER) (test code = 405) ALPHA 1 FRACTION 0.2 g/dL 0.2-0.4 (BEAKER) (test code = 389) ALPHA 2 FRACTION 0.5 g/dL 0.5-0.9 (BEAKER) (test code = 390) BETA FRACTION (BEAKER) 0.8 g/dL 0.6-1.1 (test code = 392) GAMMA GLOBULIN 0.6 g/dL 0.7-1.7 L FRACTION (BEAKER) (test code = 391) INTERPRETATION-119 Slight decrease in (BEAKER) (test code = albumin and gamma 2615) globulin fractions. No monoclonal bands detected. [id number] Ariana Yanes MD (BEAKER) (test code = (electronic signature) 3370) PROTEIN TOTAL SERUM, 5.3 gm/dL 6.0-8.3 L SPEP (BEAKER) (test code = 1870) TACROLIMUS [id number] 08:44:00 Test Item Value Reference Range Interpretation Comments TACROLIMUS BLOOD (BEAKER) (test 6.4 ng/mL 10.0-20.0 L code = 657) POCT-GLUCOSE [id number] 08:21:00 Test Item Value Reference Range Interpretation Comments POC-GLUCOSE METER 104 mg/dL 70-110 TESTED AT [facility] 67 ([facility]) (test code = BERT Karimi [facility] 1538) [address] [id number] 07:36:00 Test Item Value Reference Range Interpretation Comments CORTISOL, TOTAL (BEAKER) (test code 2.3 ug/dL 3.7-19.4 L = 2755) BASIC METABOLIC [id number] 07:18:00 Test Item Value Reference Range Interpretation Comments SODIUM (BEAKER) 137 meq/L 136-145 (test code = 381) POTASSIUM (BEAKER) 3.9 meq/L 3.5-5.1 (test code = 379) CHLORIDE (BEAKER) 104 meq/L 98-107 (test code = 382) CO2 (BEAKER) (test 26 meq/L 22-29 code = 355) BLOOD UREA NITROGEN 35 mg/dL 7-21 H (BEAKER) (test code = 354) CREATININE (BEAKER) 1.93 mg/dL 0.57-1.25 H (test code = 358) GLUCOSE RANDOM 87 mg/dL 70-105 (BEAKER) (test code = 652) CALCIUM (BEAKER) 10.3 mg/dL 8.4-10.2 H (test code = 697) EGFR (BEAKER) (test mL/min/1.73 INSUFFIC IENT CLINICAL code = 1092) sq m DATA TO CALCULA TE ESTIMATED GFR. OCCULT BLOOD, [id number] 23:10:00 Test Item Value Reference Range Interpretation Comments FECAL OCCULT BLOOD (BEAKER) (test Positive Negative A code = 618) POCT-GLUCOSE [id number] 23:08:00 Test Item Value Reference Range Interpretation Comments POC-GLUCOSE METER 106 mg/dL 70-110 TESTED AT [place] [address] ([facility]) (test code = BERT Karimi [facility] 1538) [address] POCT-GLUCOSE [id number] 17:08:00 Test Item Value Reference Range Interpretation Comments POC-GLUCOSE METER 140 mg/dL 70-110 H TESTED AT [place] [address] ([facility]) (test code = [place]MA[place]AR[place] Sachi [facility] 1538) [address] POCT-GLUCOSE [id number] 11:59:00 Test Item Value Reference Range Interpretation Comments POC-GLUCOSE METER 131 mg/dL 70-110 H TESTED AT [facility] 6720 ([facility]) (test code = BERT Karimi [facility] 1538) [address] TACROLIMUS [id number] 08:22:00 Test Item Value Reference Range Interpretation Comments TACROLIMUS BLOOD (BEAKER) (test 6.8 ng/mL 10.0-20.0 L code = 657) POCT-GLUCOSE [id number] 07:34:00 Test Item Value Reference Range Interpretation Comments POC-GLUCOSE METER 94 mg/dL 70-110 TESTED AT [facility] 67[address] ([facility]) ([facility]imi [facility] [address] 1538) BASIC METABOLIC [id number] 06:44:00 Test Item Value Reference Range Interpretation Comments SODIUM (BEAKER) 136 meq/L 136-145 (test code = 381) POTASSIUM (BEAKER) 4.4 meq/L 3.5-5.1 (test code = 379) CHLORIDE (BEAKER) 104 meq/L 98-107 (test code = 382) CO2 (BEAKER) (test 24 meq/L 22-29 code = 355) BLOOD UREA NITROGEN 32 mg/dL 7-21 H (BEAKER) (test code = 354) CREATININE (BEAKER) 1.90 mg/dL 0.57-1.25 H (test code = 358) GLUCOSE RANDOM 86 mg/dL 70-105 (BEAKER) (test code = 652) CALCIUM (BEAKER) 10.5 mg/dL 8.4-10.2 H (test code = 697) EGFR (BEAKER) (test mL/min/1.73 INSUFFIC IENT CLINICAL code = 1092) sq m DATA TO CALCULA TE ESTIMATED GFR. CBC W/PLT COUNT & AUTO [id number] 06:34:00 Test Item Value Reference Range Interpretation Comments WHITE BLOOD CELL COUNT (BEAKER) 5.3 K/ L 4.0-10.0 (test code = 775) RED BLOOD CELL COUNT (BEAKER) 4.03 M/ L 4.20-5.80 L (test code = 761) HEMOGLOBIN (BEAKER) (test code = 11.5 GM/DL 13.0-16.8 L 410) HEMATOCRIT (BEAKER) (test code = 35.5 % 40.0-50.0 L 411) MEAN CORPUSCULAR VOLUME (BEAKER) 88.2 fL 82.0-98.0 (test code = 753) MEAN CORPUSCULAR HEMOGLOBIN 28.5 pg 27.0-33.0 (BEAKER) (test code = 751) MEAN CORPUSCULAR HEMOGLOBIN CONC 32.3 GM/DL 32.0-36.0 (BEAKER) (test code = 752) RED CELL DISTRIBUTION WIDTH 13.6 % 10.3-14.2 (BEAKER) (test code = 412) PLATELET COUNT (BEAKER) (test 189 K/CU MM 150-430 code = 756) MEAN PLATELET VOLUME (BEAKER) 7.9 fL 6.5-10.5 (test code = 754) NUCLEATED RED BLOOD CELLS 0 /100 WBC 0-0 (BEAKER) (test code = 413) NEUTROPHILS RELATIVE PERCENT 59 % (BEAKER) (test code = 429) LYMPHOCYTES RELATIVE PERCENT 30 % (BEAKER) (test code = 430) MONOCYTES RELATIVE PERCENT 9 % (BEAKER) (test code = 431) EOSINOPHILS RELATIVE PERCENT 1 % (BEAKER) (test code = 432) BASOPHILS RELATIVE PERCENT 1 % (BEAKER) (test code = 437) NEUTROPHILS ABSOLUTE COUNT 3.11 K/ L 1.80-8.00 (BEAKER) (test code = 670) LYMPHOCYTES ABSOLUTE COUNT 1.58 K/ L 1.48-4.50 (BEAKER) (test code = 414) MONOCYTES ABSOLUTE COUNT (BEAKER) 0.49 K/ L 0.00-1.30 (test code = 415) EOSINOPHILS ABSOLUTE COUNT 0.05 K/ L 0.00-0.50 (BEAKER) (test code = 416) BASOPHILS ABSOLUTE COUNT (BEAKER) 0.03 K/ L 0.00-0.20 (test code = 417) 0.00POCT-GLUCOSE [id number] 23:00:00 Test Item Value Reference Range Interpretation Comments POC-GLUCOSE METER 122 mg/dL 70-110 H TESTED AT [facility] 6720 (BEAKER) (test code = BERT JOE 1538) [address] POCT-GLUCOSE [id number] 17:31:00 Test Item Value Reference Range Interpretation Comments POC-GLUCOSE METER 121 mg/dL 70-110 H TESTED AT [facility] 6720 (BEAKER) (test code = BERT [place] 1538) [address] TACROLIMUS [id number] 09:39:00 Test Item Value Reference Range Interpretation Comments TACROLIMUS BLOOD (BEAKER) (test 7.6 ng/mL 10.0-20.0 L code = 657) CBC W/PLT COUNT & AUTO [id number] 05:24:00 Test Item Value Reference Range Interpretation Comments WHITE BLOOD CELL COUNT (BEAKER) 5.3 K/ L 4.0-10.0 (test code = 775) RED BLOOD CELL COUNT (BEAKER) 4.06 M/ L 4.20-5.80 L (test code = 761) HEMOGLOBIN (BEAKER) (test code = 12.1 GM/DL 13.0-16.8 L 410) HEMATOCRIT (BEAKER) (test code = 35.6 % 40.0-50.0 L 411) MEAN CORPUSCULAR VOLUME (BEAKER) 87.6 fL 82.0-98.0 (test code = 753) MEAN CORPUSCULAR HEMOGLOBIN 29.9 pg 27.0-33.0 (BEAKER) (test code = 751) MEAN CORPUSCULAR HEMOGLOBIN CONC 34.1 GM/DL 32.0-36.0 (BEAKER) (test code = 752) RED CELL DISTRIBUTION WIDTH 13.5 % 10.3-14.2 (BEAKER) (test code = 412) PLATELET COUNT (BEAKER) (test 173 K/CU MM 150-430 code = 756) MEAN PLATELET VOLUME (BEAKER) 7.5 fL 6.5-10.5 (test code = 754) NUCLEATED RED BLOOD CELLS 0 /100 WBC 0-0 (BEAKER) (test code = 413) NEUTROPHILS RELATIVE PERCENT 72 % (BEAKER) (test code = 429) LYMPHOCYTES RELATIVE PERCENT 20 % (BEAKER) (test code = 430) MONOCYTES RELATIVE PERCENT 7 % (BEAKER) (test code = 431) EOSINOPHILS RELATIVE PERCENT 1 % (BEAKER) (test code = 432) BASOPHILS RELATIVE PERCENT 0 % (BEAKER) (test code = 437) NEUTROPHILS ABSOLUTE COUNT 3.79 K/ L 1.80-8.00 (BEAKER) (test code = 670) LYMPHOCYTES ABSOLUTE COUNT 1.05 K/ L 1.48-4.50 L (BEAKER) (test code = 414) MONOCYTES ABSOLUTE COUNT (BEAKER) 0.39 K/ L 0.00-1.30 (test code = 415) EOSINOPHILS ABSOLUTE COUNT 0.03 K/ L 0.00-0.50 (BEAKER) (test code = 416) BASOPHILS ABSOLUTE COUNT (BEAKER) 0.00 K/ L 0.00-0.20 (test code = 417) 0.00BASIC METABOLIC [id number] 05:15:00 Test Item Value Reference Range Interpretation Comments SODIUM (BEAKER) 133 meq/L 136-145 L (test code = 381) POTASSIUM (BEAKER) 4.6 meq/L 3.5-5.1 (test code = 379) CHLORIDE (BEAKER) 103 meq/L 98-107 (test code = 382) CO2 (BEAKER) (test 24 meq/L 22-29 code = 355) BLOOD UREA NITROGEN 30 mg/dL 7-21 H (BEAKER) (test code = 354) CREATININE (BEAKER) 1.78 mg/dL 0.57-1.25 H (test code = 358) GLUCOSE RANDOM 98 mg/dL 70-105 (BEAKER) (test code = 652) CALCIUM (BEAKER) 11.1 mg/dL 8.4-10.2 H (test code = 697) EGFR (BEAKER) (test mL/min/1.73 INSUFFIC IENT CLINICAL code = 1092) sq m DATA TO CALCULA TE ESTIMATED GFR. BASIC METABOLIC [id number] 19:22:00 Test Item Value Reference Range Interpretation Comments SODIUM (BEAKER) 133 meq/L 136-145 L (test code = 381) POTASSIUM (BEAKER) 4.4 meq/L 3.5-5.1 (test code = 379) CHLORIDE (BEAKER) 101 meq/L 98-107 (test code = 382) CO2 (BEAKER) (test 23 meq/L 22-29 code = 355) BLOOD UREA NITROGEN 32 mg/dL 7-21 H (BEAKER) (test code = 354) CREATININE (BEAKER) 1.77 mg/dL 0.57-1.25 H (test code = 358) GLUCOSE RANDOM 126 mg/dL 70-105 H (BEAKER) (test code = 652) CALCIUM (BEAKER) 11.5 mg/dL 8.4-10.2 H (test code = 697) EGFR (BEAKER) (test mL/min/1.73 INSUFFIC IENT CLINICAL code = 1092) sq m DATA TO CALCULA TE ESTIMATED GFR. [id number] 19:21:00 Test Item Value Reference Range Interpretation Comments MAGNESIUM (BEAKER) (test code = 1.2 mg/dL 1.6-2.6 L 627) CMV PCR, [id number] 17:21:00 Test Item Value Reference Range Interpretation Comments CMV VIRAL LOAD - Negative or below the NEGATIVE (BEAKER) (test linear range of the code = 2558) assay (<375 copies/mL) Cytomegalovirus (CMV) infection can cause significant disease in immunosuppressed patients. However,it is common for CMV to manifest as a limited infection which is of no clinical significance in immunosuppressed patients or in healthy individuals.Viral load measurements are helpful to identify clinical CMV infection and to guide the pre-emptive management of antiviral therapy. For treatment of CMVinfection due to reactivation in transplant recipients, a threshold between 4,000 and 5,000 copies/mL is suggested. For treatment of primary CMV infection, a lower threshold can be used.CMV infection may also be monitored using weekly serial measurements. Serial measurements of CMV DNA viral load canbe evaluated by identifying a 10-fold change, as well as assessing the CMV DNA viral load and the clinical context for each patient.The plasma CMV DNA viral load was detected using quantitative polymerase chain reaction and fluorescent monitoring of a specific hybridized probe. Genetic variation and ot her factors can affect the accuracy of nucleic acid testing. Therefore, the results should be interpreted in light of clinical data. A negative result may not exclude the presence of CMV disease.This test was developed and its performance characteristics determined by the [facility] Path o[facility]y Department, Section of Molecular Pathology. It has not been cleared or approved by the U.S. Food and Drug Administration (FDA), since FDA approval is not required for clinical use of the test. Validation was done as required by The Clinical Laboratory Improvement Amendments of 1988.BASIC METABOLIC PANEL 2016-10-28 11:41:00 Test Item Value Reference Range Interpretation Comments SODIUM (BEAKER) 132 meq/L 136-145 L (test code = 381) POTASSIUM (BEAKER) 5.0 meq/L 3.5-5.1 (test code = 379) CHLORIDE (BEAKER) 104 meq/L 98-107 (test code = 382) CO2 (BEAKER) (test 22 meq/L 22-29 code = 355) BLOOD UREA NITROGEN 36 mg/dL 7-21 H (BEAKER) (test code = 354) CREATININE (BEAKER) 1.91 mg/dL 0.57-1.25 H (test code = 358) GLUCOSE RANDOM 128 mg/dL 70-105 H (BEAKER) (test code = 652) CALCIUM (BEAKER) 11.0 mg/dL 8.4-10.2 H (test code = 697) EGFR (BEAKER) (test mL/min/1.73 INSUFFIC IENT CLINICAL code = 1092) sq m DATA TO CALCULA TE ESTIMATED GFR. CALCIUM, [id number] 11:18:00 Test Item Value Reference Range Interpretation Comments CALCIUM IONIZED (BEAKER) (test 1.38 mmol/L 1.12-1.27 H code = 698) PH, BLOOD (BEAKER) (test code = 7.38 1810) BASIC METABOLIC [id number] 04:30:00 Test Item Value Reference Range Interpretation Comments SODIUM (BEAKER) 131 meq/L 136-145 L (test code = 381) POTASSIUM (BEAKER) 5.8 meq/L 3.5-5.1 H (test code = 379) CHLORIDE (BEAKER) 106 meq/L 98-107 (test code = 382) CO2 (BEAKER) (test 18 meq/L 22-29 L code = 355) BLOOD UREA NITROGEN 40 mg/dL 7-21 H (BEAKER) (test code = 354) CREATININE (BEAKER) 2.07 mg/dL 0.57-1.25 H (test code = 358) GLUCOSE RANDOM 116 mg/dL 70-105 H (BEAKER) (test code = 652) CALCIUM (BEAKER) 11.4 mg/dL 8.4-10.2 H (test code = 697) EGFR (BEAKER) (test mL/min/1.73 INSUFFIC IENT CLINICAL code = 1092) sq m DATA TO CALCULA TE ESTIMATED GFR. CBC W/PLT COUNT & AUTO [id number] 03:48:00 Test Item Value Reference Range Interpretation Comments WHITE BLOOD CELL COUNT (BEAKER) 5.6 K/ L 4.0-10.0 (test code = 775) RED BLOOD CELL COUNT (BEAKER) 4.14 M/ L 4.20-5.80 L (test code = 761) HEMOGLOBIN (BEAKER) (test code = 12.0 GM/DL 13.0-16.8 L 410) HEMATOCRIT (BEAKER) (test code = 35.6 % 40.0-50.0 L 411) MEAN CORPUSCULAR VOLUME (BEAKER) 86.0 fL 82.0-98.0 (test code = 753) MEAN CORPUSCULAR HEMOGLOBIN 29.0 pg 27.0-33.0 (BEAKER) (test code = 751) MEAN CORPUSCULAR HEMOGLOBIN CONC 33.7 GM/DL 32.0-36.0 (BEAKER) (test code = 752) RED CELL DISTRIBUTION WIDTH 14.9 % 10.3-14.2 H (BEAKER) (test code = 412) PLATELET COUNT (BEAKER) (test 176 K/CU MM 150-430 code = 756) MEAN PLATELET VOLUME (BEAKER) 8.0 fL 6.5-10.5 (test code = 754) NUCLEATED RED BLOOD CELLS 0 /100 WBC 0-0 (BEAKER) (test code = 413) NEUTROPHILS RELATIVE PERCENT 74 % (BEAKER) (test code = 429) LYMPHOCYTES RELATIVE PERCENT 18 % (BEAKER) (test code = 430) MONOCYTES RELATIVE PERCENT 7 % (BEAKER) (test code = 431) EOSINOPHILS RELATIVE PERCENT 1 % (BEAKER) (test code = 432) BASOPHILS RELATIVE PERCENT 0 % (BEAKER) (test code = 437) NEUTROPHILS ABSOLUTE COUNT 4.19 K/ L 1.80-8.00 (BEAKER) (test code = 670) LYMPHOCYTES ABSOLUTE COUNT 1.01 K/ L 1.48-4.50 L (BEAKER) (test code = 414) MONOCYTES ABSOLUTE COUNT (BEAKER) 0.38 K/ L 0.00-1.30 (test code = 415) EOSINOPHILS ABSOLUTE COUNT 0.04 K/ L 0.00-0.50 (BEAKER) (test code = 416) BASOPHILS ABSOLUTE COUNT (BEAKER) 0.02 K/ L 0.00-0.20 (test code = 417) [id number] 01:25:00 Test Item Value Reference Range Interpretation Comments POTASSIUM (BEAKER) 6.0 meq/L 3.5-5.1 HH Specimen slightly (test code = 379) hemolyzed POCT-GLUCOSE [id number] 23:51:00 Test Item Value Reference Range Interpretation Comments POC-GLUCOSE METER 106 mg/dL 70-110 TESTED AT [facility] 6720 (BEAKER) (test code = BERT Karimi [place] 1538) [id number] POCT-GLUCOSE [id number] 22:25:00 Test Item Value Reference Range Interpretation Comments POC-GLUCOSE METER 106 mg/dL 70-110 TESTED AT [facility] 6720 (BEAKER) (test code = [facility] [place] 1538) [address] BASIC METABOLIC [id number] 22:08:00 Test Item Value Reference Range Interpretation Comments SODIUM (BEAKER) 133 meq/L 136-145 L (test code = 381) POTASSIUM (BEAKER) 5.9 meq/L 3.5-5.1 H (test code = 379) CHLORIDE (BEAKER) 108 meq/L 98-107 H (test code = 382) CO2 (BEAKER) (test 17 meq/L 22-29 L code = 355) BLOOD UREA NITROGEN 43 mg/dL 7-21 H (BEAKER) (test code = 354) CREATININE (BEAKER) 2.37 mg/dL 0.57-1.25 H (test code = 358) GLUCOSE RANDOM 129 mg/dL 70-105 H (BEAKER) (test code = 652) CALCIUM (BEAKER) 12.2 mg/dL 8.4-10.2 H (test code = 697) EGFR (BEAKER) (test mL/min/1.73 INSUFFIC IENT CLINICAL code = 1092) sq m DATA TO CALCULA TE ESTIMATED GFR. CREATINE KINASE (CK)2016-10-27 22:07:00 Test Item Value Reference Range Interpretation Comments CREATINE KINASE TOTAL (BEAKER) (test 19 U/L 29-200 L code = 380) LACTIC ACID, VENOUS, WHOLE [id number] 22:01:00 Test Item Value Reference Range Interpretation Comments LACTATE BLOOD VENOUS 1.5 mmol/L 0.5-2.2 Specime n slightly (2) (BEAKER) (test hemolyzed code = 2872) Effective 09/02/2015: Units/Reference Range ChangeNew: 0.5-2.2 mmol/L Previous: 5-20 mg/dLPOCT-GLUCOSE [id number] 21:35:00 Test Item Value Reference Range Interpretation Comments POC-GLUCOSE METER 123 mg/dL 70-110 H TESTED AT [place] [address] ([facility]) (test code = BERT Karimi [place] 1538) [address] POCT-GLUCOSE [id number] 19:26:00 Test Item Value Reference Range Interpretation Comments POC-GLUCOSE METER 240 mg/dL 70-110 H TESTED AT [place] [address] ([facility]) (test code = BERT Karimi [place] 1538) [address] CREATINE KINASE (CK), TOTAL AND [id number] 18:49:00 Test Item Value Reference Range Interpretation Comments CREATINE KINASE TOTAL ([facility]) 18 U/L 29-200 L (test code = 380) CREATINE KINASE-MB ([facility]) (test 1.1 ng/mL 0.0-6.6 code = 750) CREATINE KINASE-MB INDEX ([facility]) 6.1 % (test code = 395) Effective 03/18/2014: CK-MB Reference Range ChangeNew: 0.0-6.6 Previous: 0.0-4.9CK-MB Reference Range:<6.7 Normal6.7-10.0 Borderline>10.0 AbnormalTROPONIN [id number] 18:22:00 Test Item Value Reference Range Interpretation Comments TROPONIN I ([facility]) (test code = 397) < ng/mL 0.00-0.03 Effective 03/18/2014: Reference Range ChangeNew: 0.00-0.03 Previous 0.00- 0.15Troponin I (TnI) levels must be interpreted in the context of the presenting symptoms and the clinical findings. Elevated TnI levels indicate myocardial damage, but are not specific for ischemic heart disease. Elevated TnI levels are seen in patients with other cardiac conditions (including myocarditis and congestive heartfailure), and slight TnI elevations occur in patients with other conditions, including sepsis, renalfailure, acidosis, acute neurological disease, and persistent tachyarrhythmia.[id number] 18:06:00 Test Item Value Reference Range Interpretation Comments THYROID STIMULATING HORMONE 0.50 uIU/mL 0.35-4.94 (BEAKER) (test code = 772) BASIC METABOLIC [id number] 17:57:00 Test Item Value Reference Range Interpretation Comments SODIUM (BEAKER) 131 meq/L 136-145 L (test code = 381) POTASSIUM (BEAKER) 7.8 meq/L 3.5-5.1 HH (test code = 379) CHLORIDE (BEAKER) 106 meq/L 98-107 (test code = 382) CO2 (BEAKER) (test 20 meq/L 22-29 L code = 355) BLOOD UREA NITROGEN 43 mg/dL 7-21 H (BEAKER) (test code = 354) CREATININE (BEAKER) 2.47 mg/dL 0.57-1.25 H (test code = 358) GLUCOSE RANDOM 112 mg/dL 70-105 H (BEAKER) (test code = 652) CALCIUM (BEAKER) 12.6 mg/dL 8.4-10.2 H (test code = 697) EGFR (BEAKER) (test mL/min/1.73 INSUFFIC IENT CLINICAL code = 1092) sq m DATA TO CALCULA TE ESTIMATED GFR. PTH, [id number] 17:51:00 Test Item Value Reference Range Interpretation Comments PARATHYROID HORMONE INTACT 539.0 pg/mL 8.5-72.5 H (BEAKER) (test code = 577) Effective 03/18/2014: Reference Range ChangeNew: 8.5-72.5 Previous: 15.0-90.0 COMPREHENSIVE METABOLIC [id number] 14:26:00 Test Item Value Reference Range Interpretation Comments TOTAL PROTEIN 7.6 gm/dL 6.0-8.3 (BEAKER) (test code = 770) ALBUMIN (BEAKER) 4.3 g/dL 3.5-5.0 (test code = 1145) ALKALINE PHOSPHATASE 111 U/L 40-150 (BEAKER) (test code = 346) BILIRUBIN TOTAL 0.6 mg/dL 0.2-1.2 (BEAKER) (test code = 377) SODIUM (BEAKER) 132 meq/L 136-145 L (test code = 381) POTASSIUM (BEAKER) 6.2 meq/L 3.5-5.1 HH (test code = 379) CHLORIDE (BEAKER) 107 meq/L 98-107 (test code = 382) CO2 (BEAKER) (test 17 meq/L 22-29 L code = 355) BLOOD UREA NITROGEN 40 mg/dL 7-21 H (BEAKER) (test code = 354) CREATININE (BEAKER) 2.28 mg/dL 0.57-1.25 H (test code = 358) GLUCOSE RANDOM 82 mg/dL 70-105 (BEAKER) (test code = 652) CALCIUM (BEAKER) 12.8 mg/dL 8.4-10.2 H (test code = 697) AST (SGOT) (BEAKER) 18 U/L 5-34 (test code = 353) ALT (SGPT) (BEAKER) 13 U/L 6-55 (test code = 347) EGFR (BEAKER) (test mL/min/1.73 INSUFFIC IENT code = 1092) sq m CLINICAL DATA T O CALCULATE ESTIM ATED GFR. TACROLIMUS [id number] 12:00:00 Test Item Value Reference Range Interpretation Comments TACROLIMUS BLOOD (BEAKER) (test 8.2 ng/mL 10.0-20.0 L code = 657) URINALYSIS W/ REFLEX URINE [id number] 10:05:00 Test Item Value Reference Range Interpretation Comments COLOR (BEAKER) (test code = 470) Yellow CLARITY (BEAKER) (test code = 469) Clear SPECIFIC GRAVITY UA (BEAKER) (test 1.023 1.001-1.035 code = 468) PH UA (BEAKER) (test code = 467) 5.0 5.0-8.0 PROTEIN UA (BEAKER) (test code = 20 mg/dL Negative A 464) GLUCOSE UA (BEAKER) (test code = Negative Negative 365) KETONES UA (BEAKER) (test code = Negative Negative 371) BILIRUBIN UA (BEAKER) (test code = Negative Negative 462) BLOOD UA (BEAKER) (test code = Negative Negative 461) NITRITE UA (BEAKER) (test code = Negative Negative 465) LEUKOCYTE ESTERASE UA (BEAKER) Negative Negative (test code = 466) UROBILINOGEN UA (BEAKER) (test 0.2 mg/dL 0.2-1.0 code = 463) RBC UA (BEAKER) (test code = 519) 0 /HPF WBC UA (BEAKER) (test code = 520) 2 /HPF MUCUS (BEAKER) (test code = 1574) Rare SQUAMOUS EPITHELIAL (BEAKER) (test < /HPF code = 516) HYALINE CASTS (BEAKER) (test code 5 /LPF = 514) CALCIUM OXALATE CRYSTALS (BEAKER) Occasional (test code = 518) SOURCE(BEAKER) (test code = 2795) [id number] 09:51:00 Test Item Value Reference Range Interpretation Comments PHOSPHORUS (BEAKER) (test code = 2.5 mg/dL 2.3-4.7 604) LACTATE DEHYDROGENASE (LDH)2016-10-27 09:51:00 Test Item Value Reference Range Interpretation Comments LACTATE DEHYDROGENASE (BEAKER) (test 169 U/L 125-220 code = 635) CBC W/PLT COUNT & AUTO [id number] 09:28:00 Test Item Value Reference Range Interpretation Comments WHITE BLOOD CELL COUNT (BEAKER) 6.6 K/ L 4.0-10.0 (test code = 775) RED BLOOD CELL COUNT (BEAKER) 4.70 M/ L 4.20-5.80 (test code = 761) HEMOGLOBIN (BEAKER) (test code = 13.2 GM/DL 13.0-16.8 410) HEMATOCRIT (BEAKER) (test code = 41.3 % 40.0-50.0 411) MEAN CORPUSCULAR VOLUME (BEAKER) 87.9 fL 82.0-98.0 (test code = 753) MEAN CORPUSCULAR HEMOGLOBIN 28.0 pg 27.0-33.0 (BEAKER) (test code = 751) MEAN CORPUSCULAR HEMOGLOBIN CONC 31.9 GM/DL 32.0-36.0 L (BEAKER) (test code = 752) RED CELL DISTRIBUTION WIDTH 15.1 % 10.3-14.2 H (BEAKER) (test code = 412) PLATELET COUNT (BEAKER) (test 196 K/CU MM 150-430 code = 756) MEAN PLATELET VOLUME (BEAKER) 8.6 fL 6.5-10.5 (test code = 754) NUCLEATED RED BLOOD CELLS 0 /100 WBC 0-0 (BEAKER) (test code = 413) NEUTROPHILS RELATIVE PERCENT 65 % (BEAKER) (test code = 429) LYMPHOCYTES RELATIVE PERCENT 26 % (BEAKER) (test code = 430) MONOCYTES RELATIVE PERCENT 7 % (BEAKER) (test code = 431) EOSINOPHILS RELATIVE PERCENT 1 % (BEAKER) (test code = 432) BASOPHILS RELATIVE PERCENT 1 % (BEAKER) (test code = 437) NEUTROPHILS ABSOLUTE COUNT 4.29 K/ L 1.80-8.00 (BEAKER) (test code = 670) LYMPHOCYTES ABSOLUTE COUNT 1.68 K/ L 1.48-4.50 (BEAKER) (test code = 414) MONOCYTES ABSOLUTE COUNT (BEAKER) 0.45 K/ L 0.00-1.30 (test code = 415) EOSINOPHILS ABSOLUTE COUNT 0.08 K/ L 0.00-0.50 (BEAKER) (test code = 416) BASOPHILS ABSOLUTE COUNT (BEAKER) 0.07 K/ L 0.00-0.20 (test code = 417) 0.00BK VIRUS PCR, [id number] 15:20:00 Test Item Value Reference Range Interpretation Comments BK VIRUS, PLASMA, NEG Negative or below the (BEAKER) (test code = linear range of the 2145) assay (<1,000 copies/mL) Patients may have replicating BK Virus which is of no clinical significance. Viral load measurements are helpful to identify BK Virus replication of potential clinical significance. Consensus recommendations have been published of threshold values for the presumptive diagnosis of polyomavirus-associated nephropathy (Transplantation 2005;79:7724-8531).A BK Virus load greater than 5,000-10,000 copies/mL in the plasma is consistent with the presumptive diagnosis of polyoma-associated nephropathy in renal transplant recipients.BK Virus DNA was assessed using quantitative polymerase chain reaction and fluorescent monitoring of a specific hybridized probe. Genetic variation and other factors can affect the accuracy of nucleic acid testing. Therefore, the results should be interpreted in light of clinical data.This test was developed and its performance characteristics determined by the [facility] Pathology Department, Section of Molecular Pathology. It has not been cleared or approved by the U.S. Food and Drug Administration (FDA). Since FDA approval is not required for clinicaluse of the test, validation was done as required by the Clinical Laboratory Improvement Amendments of 1988.CMV PCR, QUANTITATIVE 2016-10-06 14:22:00 Test Item Value Reference Range Interpretation Comments CMV VIRAL LOAD - Negative or below the NEGATIVE (BEAKER) (test linear range of the code = 2558) assay (<375 copies/mL) Cytomegalovirus (CMV) infection can cause significant disease in immunosuppressed patients. However,it is common for CMV to manifest as a limited infection which is of no clinical significance in immunosuppressed patients or in healthy individuals.Viral load measurements are helpful to identify clinical CMV infection and to guide the pre-emptive management of antiviral therapy. For treatment of CMVinfection due to reactivation in transplant recipients, a threshold between 4,000 and 5,000 copies/mL is suggested. For treatment of primary CMV infection, a lower threshold can be used.CMV infection may also be monitored using weekly serial measurements. Serial measurements of CMV DNA viral load canbe evaluated by identifying a 10-fold change, as well as assessing the CMV DNA viral load and the clinical context for each patient.The plasma CMV DNA viral load was detected using quantitative polymerase chain reaction and fluorescent monitoring of a specific hybridized probe. Genetic variation and ot her factors can affect the accuracy of nucleic acid testing. Therefore, the results should be interpreted in light of clinical data. A negative result may not exclude the presence of CMV disease.This test was developed and its performance characteristics determined by the [facility] Path ology Department, Section of Molecular Pathology. It has not been cleared or approved by the U.S. Food and Drug Administration (FDA), since FDA approval is not required for clinical use of the test. Validation was done as required by The Clinical Laboratory Improvement Amendments of 1988.TACROLIMUS LEVEL 2016-10-06 12:28:00 Test Item Value Reference Range Interpretation Comments TACROLIMUS BLOOD (BEAKER) (test 10.7 ng/mL 10.0-20.0 code = 657) URINALYSIS W/ REFLEX URINE [id number] 09:40:00 Test Item Value Reference Range Interpretation Comments COLOR (BEAKER) (test code = 470) Yellow CLARITY (BEAKER) (test code = 469) Clear SPECIFIC GRAVITY UA (BEAKER) (test 1.028 1.001-1.035 code = 468) PH UA (BEAKER) (test code = 467) 5.5 5.0-8.0 PROTEIN UA (BEAKER) (test code = 20 mg/dL Negative A 464) GLUCOSE UA (BEAKER) (test code = Negative Negative 365) KETONES UA (BEAKER) (test code = Negative Negative 371) BILIRUBIN UA (BEAKER) (test code = Negative Negative 462) BLOOD UA (BEAKER) (test code = 461) Negative Negative NITRITE UA (BEAKER) (test code = Negative Negative 465) LEUKOCYTE ESTERASE UA (BEAKER) Negative Negative (test code = 466) UROBILINOGEN UA (BEAKER) (test code 2.0 mg/dL 0.2-1.0 H = 463) RBC UA (BEAKER) (test code = 519) 1 /HPF WBC UA (BEAKER) (test code = 520) 5 /HPF MUCUS (BEAKER) (test code = 1574) Rare SQUAMOUS EPITHELIAL (BEAKER) (test 2 /HPF code = 516) HYALINE CASTS (BEAKER) (test code = 32 /LPF 514) SOURCE(BEAKER) (test code = 2795) COMPREHENSIVE METABOLIC [id number] 08:54:00 Test Item Value Reference Range Interpretation Comments TOTAL PROTEIN 6.7 gm/dL 6.0-8.3 (BEAKER) (test code = 770) ALBUMIN (BEAKER) 3.9 g/dL 3.5-5.0 (test code = 1145) ALKALINE PHOSPHATASE 100 U/L 40-150 (BEAKER) (test code = 346) BILIRUBIN TOTAL 0.5 mg/dL 0.2-1.2 (BEAKER) (test code = 377) SODIUM (BEAKER) 137 meq/L 136-145 (test code = 381) POTASSIUM (BEAKER) 5.4 meq/L 3.5-5.1 H (test code = 379) CHLORIDE (BEAKER) 111 meq/L 98-107 H (test code = 382) CO2 (BEAKER) (test 21 meq/L 22-29 L code = 355) BLOOD UREA NITROGEN 33 mg/dL 7-21 H (BEAKER) (test code = 354) CREATININE (BEAKER) 2.23 mg/dL 0.57-1.25 H (test code = 358) GLUCOSE RANDOM 99 mg/dL 70-105 (BEAKER) (test code = 652) CALCIUM (BEAKER) 10.9 mg/dL 8.4-10.2 H (test code = 697) AST (SGOT) (BEAKER) 10 U/L 5-34 (test code = 353) ALT (SGPT) (BEAKER) 7 U/L 6-55 (test code = 347) EGFR (BEAKER) (test mL/min/1.73 INSUFFIC IENT code = 1092) sq m CLINICAL DATA T O CALCULATE ESTIM ATED GFR. [id number] 08:53:00 Test Item Value Reference Range Interpretation Comments PHOSPHORUS (BEAKER) (test code = 2.5 mg/dL 2.3-4.7 604) LACTATE DEHYDROGENASE (LDH)2016-10-06 08:53:00 Test Item Value Reference Range Interpretation Comments LACTATE DEHYDROGENASE (BEAKER) (test 180 U/L 125-220 code = 635) CBC W/PLT COUNT & AUTO [id number] 08:52:00 Test Item Value Reference Range Interpretation Comments WHITE BLOOD CELL COUNT (BEAKER) 5.5 K/ L 4.0-10.0 (test code = 775) RED BLOOD CELL COUNT (BEAKER) 4.29 M/ L 4.20-5.80 (test code = 761) HEMOGLOBIN (BEAKER) (test code = 12.0 GM/DL 13.0-16.8 L 410) HEMATOCRIT (BEAKER) (test code = 38.0 % 40.0-50.0 L 411) MEAN CORPUSCULAR VOLUME (BEAKER) 88.6 fL 82.0-98.0 (test code = 753) MEAN CORPUSCULAR HEMOGLOBIN 27.9 pg 27.0-33.0 (BEAKER) (test code = 751) MEAN CORPUSCULAR HEMOGLOBIN CONC 31.5 GM/DL 32.0-36.0 L (BEAKER) (test code = 752) RED CELL DISTRIBUTION WIDTH 13.7 % 10.3-14.2 (BEAKER) (test code = 412) PLATELET COUNT (BEAKER) (test 182 K/CU MM 150-430 code = 756) MEAN PLATELET VOLUME (BEAKER) 7.5 fL 6.5-10.5 (test code = 754) NUCLEATED RED BLOOD CELLS 0 /100 WBC 0-0 (BEAKER) (test code = 413) NEUTROPHILS RELATIVE PERCENT 60 % (BEAKER) (test code = 429) LYMPHOCYTES RELATIVE PERCENT 30 % (BEAKER) (test code = 430) MONOCYTES RELATIVE PERCENT 7 % (BEAKER) (test code = 431) EOSINOPHILS RELATIVE PERCENT 2 % (BEAKER) (test code = 432) BASOPHILS RELATIVE PERCENT 0 % (BEAKER) (test code = 437) NEUTROPHILS ABSOLUTE COUNT 3.33 K/ L 1.80-8.00 (BEAKER) (test code = 670) LYMPHOCYTES ABSOLUTE COUNT 1.66 K/ L 1.48-4.50 (BEAKER) (test code = 414) MONOCYTES ABSOLUTE COUNT (BEAKER) 0.41 K/ L 0.00-1.30 (test code = 415) EOSINOPHILS ABSOLUTE COUNT 0.11 K/ L 0.00-0.50 (BEAKER) (test code = 416) BASOPHILS ABSOLUTE COUNT (BEAKER) 0.02 K/ L 0.00-0.20 (test code = 417) 0.00TACROLIMUS [id number] 11:12:00 Test Item Value Reference Range Interpretation Comments TACROLIMUS BLOOD (BEAKER) (test 9.4 ng/mL 10.0-20.0 L code = 657) URINALYSIS W/ REFLEX URINE [id number] 09:48:00 Test Item Value Reference Range Interpretation Comments COLOR (BEAKER) (test code = 470) Yellow CLARITY (BEAKER) (test code = 469) Clear SPECIFIC GRAVITY UA (BEAKER) (test 1.022 1.001-1.035 code = 468) PH UA (BEAKER) (test code = 467) 5.5 5.0-8.0 PROTEIN UA (BEAKER) (test code = 10 mg/dL Negative A 464) GLUCOSE UA (BEAKER) (test code = Negative Negative 365) KETONES UA (BEAKER) (test code = Negative Negative 371) BILIRUBIN UA (BEAKER) (test code = Negative Negative 462) BLOOD UA (BEAKER) (test code = 461) Negative Negative NITRITE UA (BEAKER) (test code = Negative Negative 465) LEUKOCYTE ESTERASE UA (BEAKER) Negative Negative (test code = 466) UROBILINOGEN UA (BEAKER) (test code 0.2 mg/dL 0.2-1.0 = 463) RBC UA (BEAKER) (test code = 519) 0 /HPF WBC UA (BEAKER) (test code = 520) 1 /HPF SQUAMOUS EPITHELIAL (BEAKER) (test < /HPF code = 516) SOURCE(BEAKER) (test code = 2795) COMPREHENSIVE METABOLIC [id number] 09:26:00 Test Item Value Reference Range Interpretation Comments TOTAL PROTEIN 6.7 gm/dL 6.0-8.3 (BEAKER) (test code = 770) ALBUMIN (BEAKER) 4.1 g/dL 3.5-5.0 (test code = 1145) ALKALINE PHOSPHATASE 93 U/L 40-150 (BEAKER) (test code = 346) BILIRUBIN TOTAL 0.6 mg/dL 0.2-1.2 (BEAKER) (test code = 377) SODIUM (BEAKER) 136 meq/L 136-145 (test code = 381) POTASSIUM (BEAKER) 4.9 meq/L 3.5-5.1 (test code = 379) CHLORIDE (BEAKER) 110 meq/L 98-107 H (test code = 382) CO2 (BEAKER) (test 20 meq/L 22-29 L code = 355) BLOOD UREA NITROGEN 33 mg/dL 7-21 H (BEAKER) (test code = 354) CREATININE (BEAKER) 2.23 mg/dL 0.57-1.25 H (test code = 358) GLUCOSE RANDOM 97 mg/dL 70-105 (BEAKER) (test code = 652) CALCIUM (BEAKER) 10.3 mg/dL 8.4-10.2 H (test code = 697) AST (SGOT) (BEAKER) 12 U/L 5-34 (test code = 353) ALT (SGPT) (BEAKER) < U/L 6-55 L (test code = 347) EGFR (BEAKER) (test mL/min/1.73 INSUFFIC IENT code = 1092) sq m CLINICAL DATA T O CALCULATE ESTIM ATED GFR. [id number] 08:58:00 Test Item Value Reference Range Interpretation Comments PHOSPHORUS (BEAKER) (test code = 2.7 mg/dL 2.3-4.7 604) LACTATE DEHYDROGENASE (LDH)2016-09-13 08:58:00 Test Item Value Reference Range Interpretation Comments LACTATE DEHYDROGENASE (BEAKER) (test 258 U/L 125-220 H code = 635) CBC W/PLT COUNT & AUTO [id number] 08:55:00 Test Item Value Reference Range Interpretation Comments WHITE BLOOD CELL COUNT (BEAKER) 5.6 K/ L 4.0-10.0 (test code = 775) RED BLOOD CELL COUNT (BEAKER) 3.79 M/ L 4.20-5.80 L (test code = 761) HEMOGLOBIN (BEAKER) (test code = 10.9 GM/DL 13.0-16.8 L 410) HEMATOCRIT (BEAKER) (test code = 32.9 % 40.0-50.0 L 411) MEAN CORPUSCULAR VOLUME (BEAKER) 86.8 fL 82.0-98.0 (test code = 753) MEAN CORPUSCULAR HEMOGLOBIN 28.8 pg 27.0-33.0 (BEAKER) (test code = 751) MEAN CORPUSCULAR HEMOGLOBIN CONC 33.2 GM/DL 32.0-36.0 (BEAKER) (test code = 752) RED CELL DISTRIBUTION WIDTH 14.6 % 10.3-14.2 H (BEAKER) (test code = 412) PLATELET COUNT (BEAKER) (test 168 K/CU MM 150-430 code = 756) MEAN PLATELET VOLUME (BEAKER) 8.3 fL 6.5-10.5 (test code = 754) NUCLEATED RED BLOOD CELLS 0 /100 WBC 0-0 (BEAKER) (test code = 413) NEUTROPHILS RELATIVE PERCENT 68 % (BEAKER) (test code = 429) LYMPHOCYTES RELATIVE PERCENT 23 % (BEAKER) (test code = 430) MONOCYTES RELATIVE PERCENT 8 % (BEAKER) (test code = 431) EOSINOPHILS RELATIVE PERCENT 1 % (BEAKER) (test code = 432) BASOPHILS RELATIVE PERCENT 0 % (BEAKER) (test code = 437) NEUTROPHILS ABSOLUTE COUNT 3.80 K/ L 1.80-8.00 (BEAKER) (test code = 670) LYMPHOCYTES ABSOLUTE COUNT 1.27 K/ L 1.48-4.50 L (BEAKER) (test code = 414) MONOCYTES ABSOLUTE COUNT (BEAKER) 0.43 K/ L 0.00-1.30 (test code = 415) EOSINOPHILS ABSOLUTE COUNT 0.06 K/ L 0.00-0.50 (BEAKER) (test code = 416) BASOPHILS ABSOLUTE COUNT (BEAKER) 0.03 K/ L 0.00-0.20 (test code = 417) 0.00TACROLIMUS [id number] 12:01:00 Test Item Value Reference Range Interpretation Comments TACROLIMUS BLOOD (BEAKER) (test 6.0 ng/mL 10.0-20.0 L code = 657) URINALYSIS W/ REFLEX URINE [id number] 10:23:00 Test Item Value Reference Range Interpretation Comments COLOR (BEAKER) (test code = 470) Yellow CLARITY (BEAKER) (test code = 469) Clear SPECIFIC GRAVITY UA (BEAKER) (test 1.021 1.001-1.035 code = 468) PH UA (BEAKER) (test code = 467) 5.5 5.0-8.0 PROTEIN UA (BEAKER) (test code = 10 mg/dL Negative A 464) GLUCOSE UA (BEAKER) (test code = Negative Negative 365) KETONES UA (BEAKER) (test code = Negative Negative 371) BILIRUBIN UA (BEAKER) (test code = Negative Negative 462) BLOOD UA (BEAKER) (test code = 461) Negative Negative NITRITE UA (BEAKER) (test code = Negative Negative 465) LEUKOCYTE ESTERASE UA (BEAKER) Negative Negative (test code = 466) UROBILINOGEN UA (BEAKER) (test code 0.2 mg/dL 0.2-1.0 = 463) RBC UA (BEAKER) (test code = 519) 2 /HPF WBC UA (BEAKER) (test code = 520) 1 /HPF BACTERIA (BEAKER) (test code = 517) Few SQUAMOUS EPITHELIAL (BEAKER) (test 2 /HPF code = 516) SOURCE(BEAKER) (test code = 2795) [id number] 08:50:00 Test Item Value Reference Range Interpretation Comments PHOSPHORUS (BEAKER) (test code = 2.4 mg/dL 2.3-4.7 604) LACTATE DEHYDROGENASE (LDH)2016-09-06 08:50:00 Test Item Value Reference Range Interpretation Comments LACTATE DEHYDROGENASE (BEAKER) (test 270 U/L 125-220 H code = 635) COMPREHENSIVE METABOLIC [id number] 08:50:00 Test Item Value Reference Range Interpretation Comments TOTAL PROTEIN 6.6 gm/dL 6.0-8.3 (BEAKER) (test code = 770) ALBUMIN (BEAKER) 4.0 g/dL 3.5-5.0 (test code = 1145) ALKALINE PHOSPHATASE 87 U/L 40-150 (BEAKER) (test code = 346) BILIRUBIN TOTAL 0.6 mg/dL 0.2-1.2 (BEAKER) (test code = 377) SODIUM (BEAKER) 137 meq/L 136-145 (test code = 381) POTASSIUM (BEAKER) 4.5 meq/L 3.5-5.1 (test code = 379) CHLORIDE (BEAKER) 109 meq/L 98-107 H (test code = 382) CO2 (BEAKER) (test 21 meq/L 22-29 L code = 355) BLOOD UREA NITROGEN 35 mg/dL 7-21 H (BEAKER) (test code = 354) CREATININE (BEAKER) 2.11 mg/dL 0.57-1.25 H (test code = 358) GLUCOSE RANDOM 115 mg/dL 70-105 H (BEAKER) (test code = 652) CALCIUM (BEAKER) 10.0 mg/dL 8.4-10.2 (test code = 697) AST (SGOT) (BEAKER) 15 U/L 5-34 (test code = 353) ALT (SGPT) (BEAKER) < U/L 6-55 L (test code = 347) EGFR (BEAKER) (test mL/min/1.73 INSUFFIC IENT code = 1092) sq m CLINICAL DATA T O CALCULATE ESTIM ATED GFR. CBC W/PLT COUNT & AUTO [id number] 08:38:00 Test Item Value Reference Range Interpretation Comments WHITE BLOOD CELL COUNT (BEAKER) 5.4 K/ L 4.0-10.0 (test code = 775) RED BLOOD CELL COUNT (BEAKER) 3.87 M/ L 4.20-5.80 L (test code = 761) HEMOGLOBIN (BEAKER) (test code = 11.1 GM/DL 13.0-16.8 L 410) HEMATOCRIT (BEAKER) (test code = 33.9 % 40.0-50.0 L 411) MEAN CORPUSCULAR VOLUME (BEAKER) 87.7 fL 82.0-98.0 (test code = 753) MEAN CORPUSCULAR HEMOGLOBIN 28.8 pg 27.0-33.0 (BEAKER) (test code = 751) MEAN CORPUSCULAR HEMOGLOBIN CONC 32.9 GM/DL 32.0-36.0 (BEAKER) (test code = 752) RED CELL DISTRIBUTION WIDTH 13.2 % 10.3-14.2 (BEAKER) (test code = 412) PLATELET COUNT (BEAKER) (test 154 K/CU MM 150-430 code = 756) MEAN PLATELET VOLUME (BEAKER) 8.2 fL 6.5-10.5 (test code = 754) NUCLEATED RED BLOOD CELLS 0 /100 WBC 0-0 (BEAKER) (test code = 413) NEUTROPHILS RELATIVE PERCENT 63 % (BEAKER) (test code = 429) LYMPHOCYTES RELATIVE PERCENT 27 % (BEAKER) (test code = 430) MONOCYTES RELATIVE PERCENT 8 % (BEAKER) (test code = 431) EOSINOPHILS RELATIVE PERCENT 2 % (BEAKER) (test code = 432) BASOPHILS RELATIVE PERCENT 1 % (BEAKER) (test code = 437) NEUTROPHILS ABSOLUTE COUNT 3.40 K/ L 1.80-8.00 (BEAKER) (test code = 670) LYMPHOCYTES ABSOLUTE COUNT 1.43 K/ L 1.48-4.50 L (BEAKER) (test code = 414) MONOCYTES ABSOLUTE COUNT (BEAKER) 0.42 K/ L 0.00-1.30 (test code = 415) EOSINOPHILS ABSOLUTE COUNT 0.09 K/ L 0.00-0.50 (BEAKER) (test code = 416) BASOPHILS ABSOLUTE COUNT (BEAKER) 0.03 K/ L 0.00-0.20 (test code = 417) 0.00TACROLIMUS [id number] 14:39:00 Test Item Value Reference Range Interpretation Comments TACROLIMUS BLOOD (BEAKER) (test 7.8 ng/mL 10.0-20.0 L code = 657) CMV PCR, [id number] 14:05:00 Test Item Value Reference Range Interpretation Comments CMV VIRAL LOAD - Negative or below the NEGATIVE (BEAKER) (test linear range of the code = 2558) assay (<375 copies/mL) Cytomegalovirus (CMV) infection can cause significant disease in immunosuppressed patients. However,it is common for CMV to manifest as a limited infection which is of no clinical significance in immunosuppressed patients or in healthy individuals.Viral load measurements are helpful to identify clinical CMV infection and to guide the pre-emptive management of antiviral therapy. For treatment of CMVinfection due to reactivation in transplant recipients, a threshold between 4,000 and 5,000 copies/mL is suggested. For treatment of primary CMV infection, a lower threshold can be used.CMV infection may also be monitored using weekly serial measurements. Serial measurements of CMV DNA viral load canbe evaluated by identifying a 10-fold change, as well as assessing the CMV DNA viral load and the clinical context for each patient.The plasma CMV DNA viral load was detected using quantitative polymerase chain reaction and fluorescent monitoring of a specific hybridized probe. Genetic variation and ot her factors can affect the accuracy of nucleic acid testing. Therefore, the results should be interpreted in light of clinical data. A negative result may not exclude the presence of CMV disease.This test was developed and its performance characteristics determined by the [facility] Path ology Department, Section of Molecular Pathology. It has not been cleared or approved by the U.S. Food and Drug Administration (FDA), since FDA approval is not required for clinical use of the test. Validation was done as required by The Clinical Laboratory Improvement Amendments of 1988.CBC W/PLT COUNT & AUTO [id number] 12:57:00 Test Item Value Reference Range Interpretation Comments WHITE BLOOD CELL COUNT (BEAKER) 6.1 K/ L 4.0-10.0 (test code = 775) RED BLOOD CELL COUNT (BEAKER) 4.18 M/ L 4.20-5.80 L (test code = 761) HEMOGLOBIN (BEAKER) (test code = 11.7 GM/DL 13.0-16.8 L 410) HEMATOCRIT (BEAKER) (test code = 36.8 % 40.0-50.0 L 411) MEAN CORPUSCULAR VOLUME (BEAKER) 88.1 fL 82.0-98.0 (test code = 753) MEAN CORPUSCULAR HEMOGLOBIN 28.0 pg 27.0-33.0 (BEAKER) (test code = 751) MEAN CORPUSCULAR HEMOGLOBIN CONC 31.8 GM/DL 32.0-36.0 L (BEAKER) (test code = 752) RED CELL DISTRIBUTION WIDTH 13.9 % 10.3-14.2 (BEAKER) (test code = 412) PLATELET COUNT (BEAKER) (test 150 K/CU MM 150-430 code = 756) MEAN PLATELET VOLUME (BEAKER) 8.7 fL 6.5-10.5 (test code = 754) NUCLEATED RED BLOOD CELLS 0 /100 WBC 0-0 (BEAKER) (test code = 413) NEUTROPHILS RELATIVE PERCENT 63 % (BEAKER) (test code = 429) LYMPHOCYTES RELATIVE PERCENT 24 % (BEAKER) (test code = 430) MONOCYTES RELATIVE PERCENT 11 % (BEAKER) (test code = 431) EOSINOPHILS RELATIVE PERCENT 2 % (BEAKER) (test code = 432) BASOPHILS RELATIVE PERCENT 1 % (BEAKER) (test code = 437) NEUTROPHILS ABSOLUTE COUNT 3.82 K/ L 1.80-8.00 (BEAKER) (test code = 670) LYMPHOCYTES ABSOLUTE COUNT 1.43 K/ L 1.48-4.50 L (BEAKER) (test code = 414) MONOCYTES ABSOLUTE COUNT (BEAKER) 0.68 K/ L 0.00-1.30 (test code = 415) EOSINOPHILS ABSOLUTE COUNT 0.10 K/ L 0.00-0.50 (BEAKER) (test code = 416) BASOPHILS ABSOLUTE COUNT (BEAKER) 0.04 K/ L 0.00-0.20 (test code = 417) [id number](MANUAL DIFFERENTIAL)2016-08-30 12:57:00 Test Item Value Reference Range Interpretation Comments TOTAL COUNTED (BEAKER) (test code = 1351) WBC MORPHOLOGY (BEAKER) (test code = Normal 487) PLT MORPHOLOGY (BEAKER) (test code = Normal 486) RBC MORPHOLOGY (BEAKER) (test code = Normal 762) COMPREHENSIVE METABOLIC [id number] 09:14:00 Test Item Value Reference Range Interpretation Comments TOTAL PROTEIN 6.8 gm/dL 6.0-8.3 (BEAKER) (test code = 770) ALBUMIN (BEAKER) 4.0 g/dL 3.5-5.0 (test code = 1145) ALKALINE PHOSPHATASE 103 U/L 40-150 (BEAKER) (test code = 346) BILIRUBIN TOTAL 0.5 mg/dL 0.2-1.2 (BEAKER) (test code = 377) SODIUM (BEAKER) 140 meq/L 136-145 (test code = 381) POTASSIUM (BEAKER) 4.4 meq/L 3.5-5.1 (test code = 379) CHLORIDE (BEAKER) 106 meq/L 98-107 (test code = 382) CO2 (BEAKER) (test 23 meq/L 22-29 code = 355) BLOOD UREA NITROGEN 28 mg/dL 7-21 H (BEAKER) (test code = 354) CREATININE (BEAKER) 2.04 mg/dL 0.57-1.25 H (test code = 358) GLUCOSE RANDOM 84 mg/dL 70-105 (BEAKER) (test code = 652) CALCIUM (BEAKER) 9.8 mg/dL 8.4-10.2 (test code = 697) AST (SGOT) (BEAKER) 14 U/L 5-34 (test code = 353) ALT (SGPT) (BEAKER) < U/L 6-55 L (test code = 347) EGFR (BEAKER) (test mL/min/1.73 INSUFFIC IENT code = 1092) sq m CLINICAL DATA T O CALCULATE ESTIM ATED GFR. [id number] 09:11:00 Test Item Value Reference Range Interpretation Comments PHOSPHORUS (BEAKER) (test code = 2.3 mg/dL 2.3-4.7 604) LACTATE DEHYDROGENASE (LDH)2016-08-30 09:11:00 Test Item Value Reference Range Interpretation Comments LACTATE DEHYDROGENASE (BEAKER) (test 290 U/L 125-220 H code = 635) URINALYSIS W/ REFLEX URINE [id number] 09:10:00 Test Item Value Reference Range Interpretation Comments COLOR (BEAKER) (test code = 470) Yellow CLARITY (BEAKER) (test code = 469) Clear SPECIFIC GRAVITY UA (BEAKER) (test 1.016 1.001-1.035 code = 468) PH UA (BEAKER) (test code = 467) 6.5 5.0-8.0 PROTEIN UA (BEAKER) (test code = Negative Negative 464) GLUCOSE UA (BEAKER) (test code = Negative Negative 365) KETONES UA (BEAKER) (test code = Negative Negative 371) BILIRUBIN UA (BEAKER) (test code = Negative Negative 462) BLOOD UA (BEAKER) (test code = 461) Negative Negative NITRITE UA (BEAKER) (test code = Negative Negative 465) LEUKOCYTE ESTERASE UA (BEAKER) Negative Negative (test code = 466) UROBILINOGEN UA (BEAKER) (test code 0.2 mg/dL 0.2-1.0 = 463) RBC UA (BEAKER) (test code = 519) < /HPF WBC UA (BEAKER) (test code = 520) < /HPF SQUAMOUS EPITHELIAL (BEAKER) (test < /HPF code = 516) HYALINE CASTS (BEAKER) (test code = 1 /LPF 514) SOURCE(BEAKER) (test code = 2795) TACROLIMUS [id number] 09:59:00 Test Item Value Reference Range Interpretation Comments TACROLIMUS BLOOD (BEAKER) (test 9.7 ng/mL 10.0-20.0 L code = 657) URINALYSIS W/ REFLEX URINE [id number] 08:25:00 Test Item Value Reference Range Interpretation Comments COLOR (BEAKER) (test code = 470) Yellow CLARITY (BEAKER) (test code = 469) Clear SPECIFIC GRAVITY UA (BEAKER) (test 1.018 1.001-1.035 code = 468) PH UA (BEAKER) (test code = 467) 5.0 5.0-8.0 PROTEIN UA (BEAKER) (test code = Negative Negative 464) GLUCOSE UA (BEAKER) (test code = Negative Negative 365) KETONES UA (BEAKER) (test code = Negative Negative 371) BILIRUBIN UA (BEAKER) (test code = Negative Negative 462) BLOOD UA (BEAKER) (test code = 461) Negative Negative NITRITE UA (BEAKER) (test code = Negative Negative 465) LEUKOCYTE ESTERASE UA (BEAKER) Negative Negative (test code = 466) UROBILINOGEN UA (BEAKER) (test code 0.2 mg/dL 0.2-1.0 = 463) RBC UA (BEAKER) (test code = 519) 1 /HPF WBC UA (BEAKER) (test code = 520) < /HPF SQUAMOUS EPITHELIAL (BEAKER) (test 1 /HPF code = 516) HYALINE CASTS (BEAKER) (test code = 2 /LPF 514) SOURCE(BEAKER) (test code = 2795) COMPREHENSIVE METABOLIC [id number] 07:41:00 Test Item Value Reference Range Interpretation Comments TOTAL PROTEIN 7.1 gm/dL 6.0-8.3 (BEAKER) (test code = 770) ALBUMIN (BEAKER) 4.4 g/dL 3.5-5.0 (test code = 1145) ALKALINE PHOSPHATASE 99 U/L 40-150 (BEAKER) (test code = 346) BILIRUBIN TOTAL 0.6 mg/dL 0.2-1.2 (BEAKER) (test code = 377) SODIUM (BEAKER) 136 meq/L 136-145 (test code = 381) POTASSIUM (BEAKER) 5.4 meq/L 3.5-5.1 H (test code = 379) CHLORIDE (BEAKER) 108 meq/L 98-107 H (test code = 382) CO2 (BEAKER) (test 20 meq/L 22-29 L code = 355) BLOOD UREA NITROGEN 37 mg/dL 7-21 H (BEAKER) (test code = 354) CREATININE (BEAKER) 2.03 mg/dL 0.57-1.25 H (test code = 358) GLUCOSE RANDOM 103 mg/dL 70-105 (BEAKER) (test code = 652) CALCIUM (BEAKER) 10.5 mg/dL 8.4-10.2 H (test code = 697) AST (SGOT) (BEAKER) 20 U/L 5-34 (test code = 353) ALT (SGPT) (BEAKER) 7 U/L 6-55 (test code = 347) EGFR (BEAKER) (test mL/min/1.73 INSUFFIC IENT code = 1092) sq m CLINICAL DATA T O CALCULATE ESTIM ATED GFR. [id number] 07:34:00 Test Item Value Reference Range Interpretation Comments PHOSPHORUS (BEAKER) (test code = 2.4 mg/dL 2.3-4.7 604) LACTATE DEHYDROGENASE (LDH)2016-08-15 07:34:00 Test Item Value Reference Range Interpretation Comments LACTATE DEHYDROGENASE (BEAKER) (test 306 U/L 125-220 H code = 635) CBC W/PLT COUNT & AUTO [id number] 07:29:00 Test Item Value Reference Range Interpretation Comments WHITE BLOOD CELL COUNT (BEAKER) 5.3 K/ L 4.0-10.0 (test code = 775) RED BLOOD CELL COUNT (BEAKER) 4.21 M/ L 4.20-5.80 (test code = 761) HEMOGLOBIN (BEAKER) (test code = 12.5 GM/DL 13.0-16.8 L 410) HEMATOCRIT (BEAKER) (test code = 37.1 % 40.0-50.0 L 411) MEAN CORPUSCULAR VOLUME (BEAKER) 88.2 fL 82.0-98.0 (test code = 753) MEAN CORPUSCULAR HEMOGLOBIN 29.7 pg 27.0-33.0 (BEAKER) (test code = 751) MEAN CORPUSCULAR HEMOGLOBIN CONC 33.6 GM/DL 32.0-36.0 (BEAKER) (test code = 752) RED CELL DISTRIBUTION WIDTH 13.7 % 10.3-14.2 (BEAKER) (test code = 412) PLATELET COUNT (BEAKER) (test 148 K/CU MM 150-430 L code = 756) MEAN PLATELET VOLUME (BEAKER) 8.1 fL 6.5-10.5 (test code = 754) NUCLEATED RED BLOOD CELLS 0 /100 WBC 0-0 (BEAKER) (test code = 413) NEUTROPHILS RELATIVE PERCENT 58 % (BEAKER) (test code = 429) LYMPHOCYTES RELATIVE PERCENT 31 % (BEAKER) (test code = 430) MONOCYTES RELATIVE PERCENT 9 % (BEAKER) (test code = 431) EOSINOPHILS RELATIVE PERCENT 2 % (BEAKER) (test code = 432) BASOPHILS RELATIVE PERCENT 0 % (BEAKER) (test code = 437) NEUTROPHILS ABSOLUTE COUNT 3.06 K/ L 1.80-8.00 (BEAKER) (test code = 670) LYMPHOCYTES ABSOLUTE COUNT 1.64 K/ L 1.48-4.50 (BEAKER) (test code = 414) MONOCYTES ABSOLUTE COUNT (BEAKER) 0.47 K/ L 0.00-1.30 (test code = 415) EOSINOPHILS ABSOLUTE COUNT 0.11 K/ L 0.00-0.50 (BEAKER) (test code = 416) BASOPHILS ABSOLUTE COUNT (BEAKER) 0.02 K/ L 0.00-0.20 (test code = 417) 0.00TISSUE [id number] 12:55:00Surgical Pathology Report Case: [id number] --- Authorizing Provider: Naina Goldberg MD Ordering Provider: Naina Goldberg MD [facility]ing[facility] Radiology Angio Collected: 07/21/2016 1346 Pathologist: Edi Salas MD Received: 07/21/2016 1347 Specimen: Kidney The addendum is being issued to report the ultrastructural evaluation findings. The diagnosis remains unchanged. ELECTRONMICROSCOPY: Thick section histology: Toluidine blue-stained sections of two blocks reveal five non-ob solescent glomeruli, three of which are examined ultrastructurally. Ultrastructure: Examination of the glomerular ultrastructure reveals that the glomerular basement membrane is of normal thickness. No double contours are seen. The mesangial matrix is not expanded. Subendothelial, subepithelial, and m esangial/paramesangial electron-dense, immune complex-type deposits are not present. Podocyte foot processes are largely preserved. The peritubular capillaries show normal lamellations of 1-3 layers thick. Billing code 90933 The addendum is being issued to report the results of the immunostain for SV40 (BK virus). The diagnosis remains unchanged.RESULTS:Immunostain for SV40 (BK virus) is negative for viral inclusions. 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 There are patchy interstitial lymphoid infiltrates. No tubulitis or viral inclusions are noted in the vicinity of these lymphoid infiltrates. Immunostain for SV40(BK polyoma virus) are being performed and the results will be reported as an addendum.These findings were communicated to Dr. Goldberg on 07/22/[id number], [id number] x3, [id number], [id number] creatinine status post transplant in June of 2015Right lower quadrant renal biopsySpecimen is received in three parts all labeled with the patient's information and labeled "right lower quadrant transplant kidney biopsy". Received in formalin consists of four styles-red core biopsy ranging in length from 0.6 to 0.8 cm submitted entirely in A1. Received fresh is a 1 cm styles-red core biopsy submitted for frozen forimmunofluorescence staining and received in glutaraldehyde is a 0.5 cm fragment of styles-red tissue submitted for electron microscopy if needed. CG/ewLIGHT MICROSCOPY: Sections show three cores of renal cortical tissue. Glomeruli: Approximately 20 glomeruli of which 2 are globally sclerotic. The remaining glomeruli have patent capillary loops. No endocapillary hypercellularity, crescents or thrombi are seen. No double contours of glomerular basement membranes are noted on Leslie or PAS stain. No glomerulitis is seen.Tubules and interstitium: There is mild interstitial fibrosis and tubular atrophy, involving about 10% of renal cortex. There are foci of interstitial lymphoid infiltrates which appearto be present at the corticomedullary junction. No tubulitis or peritubular capillaritis is noted. No viral inclusions are seen. Vessels: Branches of interlobular arteries show mild to moderate intimalsclerosis. There is mild arteriolar hyalinosis. No endothelialitis or transmural vasculitis is seen.Special stains: Heidi trichrome, PAS and Leslie silver stains were necessary for evaluation of this biopsy and showed expected staining patterns of internal control tissue matrix structures.IMMUNOFLUORESCENCEHistology: H&E-stained sections renal cortex with 8 unremarkable glomeruli. Indirect abjhcqifmpivdslqgoR2k negative in peritubular capillaries IMMUNOHISTOCHEMICAL STAINImmunohistochemical stain for CK7 shows T lymphocytes in the interstitial inflammatory infiltrates. No intimal arteritis is noted.The following special studies were performed on this case and the interpretation is incorporated in the diagnostic report above: CK7The immunohistochemistry test was developed and its performance characteristics determined by [facility], Pathology Laboratory. It has not been cleared or approved by the U.S. Food and Drug Administration. The FDA has determined that such clearance or approval is not necessary. The test is used for clinical purposes. It should not be regarded asinvestigational or for research. This laboratory is certified under the Clinical Laboratory Improvement Amendments of 1988 (CLIA-88) as qualified to perform high complexity clinical laboratory testing.TACROLIMUS [id number] 10:19:00 Test Item Value Reference Range Interpretation Comments TACROLIMUS BLOOD (BEAKER) (test 9.5 ng/mL 10.0-20.0 L code = 657) COMPREHENSIVE METABOLIC [id number] 09:06:00 Test Item Value Reference Range Interpretation Comments TOTAL PROTEIN 6.5 gm/dL 6.0-8.3 (BEAKER) (test code = 770) ALBUMIN (BEAKER) 4.0 g/dL 3.5-5.0 (test code = 1145) ALKALINE PHOSPHATASE 85 U/L 40-150 (BEAKER) (test code = 346) BILIRUBIN TOTAL 0.5 mg/dL 0.2-1.2 (BEAKER) (test code = 377) SODIUM (BEAKER) 140 meq/L 136-145 (test code = 381) POTASSIUM (BEAKER) 4.6 meq/L 3.5-5.1 (test code = 379) CHLORIDE (BEAKER) 110 meq/L 98-107 H (test code = 382) CO2 (BEAKER) (test 20 meq/L 22-29 L code = 355) BLOOD UREA NITROGEN 30 mg/dL 7-21 H (BEAKER) (test code = 354) CREATININE (BEAKER) 1.73 mg/dL 0.57-1.25 H (test code = 358) GLUCOSE RANDOM 119 mg/dL 70-105 H (BEAKER) (test code = 652) CALCIUM (BEAKER) 10.8 mg/dL 8.4-10.2 H (test code = 697) AST (SGOT) (BEAKER) 14 U/L 5-34 (test code = 353) ALT (SGPT) (BEAKER) 7 U/L 6-55 (test code = 347) EGFR (BEAKER) (test mL/min/1.73 INSUFFIC IENT code = 1092) sq m CLINICAL DATA T O CALCULATE ESTIM ATED GFR. [id number] 08:46:00 Test Item Value Reference Range Interpretation Comments PHOSPHORUS (BEAKER) (test code = 1.9 mg/dL 2.3-4.7 L 604) LACTATE DEHYDROGENASE (LDH)2016-08-02 08:46:00 Test Item Value Reference Range Interpretation Comments LACTATE DEHYDROGENASE (BEAKER) (test 282 U/L 125-220 H code = 635) URINALYSIS W/ REFLEX URINE [id number] 08:44:00 Test Item Value Reference Range Interpretation Comments COLOR (BEAKER) (test code = 470) Yellow CLARITY (BEAKER) (test code = 469) Clear SPECIFIC GRAVITY UA (BEAKER) (test 1.021 1.001-1.035 code = 468) PH UA (BEAKER) (test code = 467) 7.5 5.0-8.0 PROTEIN UA (BEAKER) (test code = 20 mg/dL Negative A 464) GLUCOSE UA (BEAKER) (test code = Negative Negative 365) KETONES UA (BEAKER) (test code = Negative Negative 371) BILIRUBIN UA (BEAKER) (test code = Negative Negative 462) BLOOD UA (BEAKER) (test code = 461) Negative Negative NITRITE UA (BEAKER) (test code = Negative Negative 465) LEUKOCYTE ESTERASE UA (BEAKER) Negative Negative (test code = 466) UROBILINOGEN UA (BEAKER) (test code 0.2 mg/dL 0.2-1.0 = 463) RBC UA (BEAKER) (test code = 519) 0 /HPF WBC UA (BEAKER) (test code = 520) 1 /HPF HYALINE CASTS (BEAKER) (test code = 3 /LPF 514) SOURCE(BEAKER) (test code = 2795) CBC W/PLT COUNT & AUTO [id number] 08:29:00 Test Item Value Reference Range Interpretation Comments WHITE BLOOD CELL COUNT (BEAKER) 4.4 K/ L 4.0-10.0 (test code = 775) RED BLOOD CELL COUNT (BEAKER) 3.76 M/ L 4.20-5.80 L (test code = 761) HEMOGLOBIN (BEAKER) (test code = 11.2 GM/DL 13.0-16.8 L 410) HEMATOCRIT (BEAKER) (test code = 34.1 % 40.0-50.0 L 411) MEAN CORPUSCULAR VOLUME (BEAKER) 90.5 fL 82.0-98.0 (test code = 753) MEAN CORPUSCULAR HEMOGLOBIN 29.9 pg 27.0-33.0 (BEAKER) (test code = 751) MEAN CORPUSCULAR HEMOGLOBIN CONC 33.0 GM/DL 32.0-36.0 (BEAKER) (test code = 752) RED CELL DISTRIBUTION WIDTH 13.4 % 10.3-14.2 (BEAKER) (test code = 412) PLATELET COUNT (BEAKER) (test 132 K/CU MM 150-430 L code = 756) MEAN PLATELET VOLUME (BEAKER) 8.7 fL 6.5-10.5 (test code = 754) NUCLEATED RED BLOOD CELLS 0 /100 WBC 0-0 (BEAKER) (test code = 413) NEUTROPHILS RELATIVE PERCENT 59 % (BEAKER) (test code = 429) LYMPHOCYTES RELATIVE PERCENT 29 % (BEAKER) (test code = 430) MONOCYTES RELATIVE PERCENT 9 % (BEAKER) (test code = 431) EOSINOPHILS RELATIVE PERCENT 2 % (BEAKER) (test code = 432) BASOPHILS RELATIVE PERCENT 1 % (BEAKER) (test code = 437) NEUTROPHILS ABSOLUTE COUNT 2.59 K/ L 1.80-8.00 (BEAKER) (test code = 670) LYMPHOCYTES ABSOLUTE COUNT 1.27 K/ L 1.48-4.50 L (BEAKER) (test code = 414) MONOCYTES ABSOLUTE COUNT (BEAKER) 0.39 K/ L 0.00-1.30 (test code = 415) EOSINOPHILS ABSOLUTE COUNT 0.09 K/ L 0.00-0.50 (BEAKER) (test code = 416) BASOPHILS ABSOLUTE COUNT (BEAKER) 0.04 K/ L 0.00-0.20 (test code = 417) [id number] 10:05:00 Test Item Value Reference Range Interpretation Comments CREATININE (BEAKER) 1.74 mg/dL 0.57-1.25 H (test code = 358) EGFR (BEAKER) (test mL/min/1.73 INSUFFIC IENT CLINICAL code = 1092) sq m DATA TO CALCULA TE ESTIMATED GFR. [id number] 09:52:00 Test Item Value Reference Range Interpretation Comments PROTIME (BEAKER) (test code = 15.1 seconds 11.7-14.7 H 759) INR (BEAKER) (test code = 370) 1.2 <=5.9 PARTIAL THROMBOPLASTIN TIME 28.8 seconds 22.5-36.0 (BEAKER) (test code = 760) RECOMMENDED COUMADIN/WARFARIN INR THERAPY RANGESSTANDARD DOSE: 2.0 - 3.0 Includes: PROPHYLAXIS forvenous thrombosis, systemic embolization; TREATMENT for venous thrombosis and/or pulmonary embolus.HIGH RISK: Target INR is 2.5-3.5 for patients with mechanical heart valves.CBC (HEMOGRAM ONLY)2016-07-21 09:45:00 Test Item Value Reference Range Interpretation Comments WHITE BLOOD CELL COUNT (BEAKER) 6.2 K/ L 4.0-10.0 (test code = 775) RED BLOOD CELL COUNT (BEAKER) 4.12 M/ L 4.20-5.80 L (test code = 761) HEMOGLOBIN (BEAKER) (test code = 12.1 GM/DL 13.0-16.8 L 410) HEMATOCRIT (BEAKER) (test code = 37.2 % 40.0-50.0 L 411) MEAN CORPUSCULAR VOLUME (BEAKER) 90.3 fL 82.0-98.0 (test code = 753) MEAN CORPUSCULAR HEMOGLOBIN 29.5 pg 27.0-33.0 (BEAKER) (test code = 751) MEAN CORPUSCULAR HEMOGLOBIN CONC 32.6 GM/DL 32.0-36.0 (BEAKER) (test code = 752) RED CELL DISTRIBUTION WIDTH 12.5 % 10.3-14.2 (BEAKER) (test code = 412) PLATELET COUNT (BEAKER) (test 143 K/CU MM 150-430 L code = 756) MEAN PLATELET VOLUME (BEAKER) 8.4 fL 6.5-10.5 (test code = 754) NUCLEATED RED BLOOD CELLS 0 /100 WBC 0-0 (BEAKER) (test code = 413) 0.00TACROLIMUS [id number] 12:37:00 Test Item Value Reference Range Interpretation Comments TACROLIMUS BLOOD (BEAKER) (test 9.7 ng/mL 10.0-20.0 L code = 657) COMPREHENSIVE METABOLIC [id number] 09:54:00 Test Item Value Reference Range Interpretation Comments TOTAL PROTEIN 6.5 gm/dL 6.0-8.3 (BEAKER) (test code = 770) ALBUMIN (BEAKER) 4.0 g/dL 3.5-5.0 (test code = 1145) ALKALINE PHOSPHATASE 90 U/L 40-150 (BEAKER) (test code = 346) BILIRUBIN TOTAL 0.4 mg/dL 0.2-1.2 (BEAKER) (test code = 377) SODIUM (BEAKER) 138 meq/L 136-145 (test code = 381) POTASSIUM (BEAKER) 4.5 meq/L 3.5-5.1 (test code = 379) CHLORIDE (BEAKER) 109 meq/L 98-107 H (test code = 382) CO2 (BEAKER) (test 21 meq/L 22-29 L code = 355) BLOOD UREA NITROGEN 27 mg/dL 7-21 H (BEAKER) (test code = 354) CREATININE (BEAKER) 1.91 mg/dL 0.57-1.25 H (test code = 358) GLUCOSE RANDOM 85 mg/dL 70-105 (BEAKER) (test code = 652) CALCIUM (BEAKER) 10.5 mg/dL 8.4-10.2 H (test code = 697) AST (SGOT) (BEAKER) 11 U/L 5-34 (test code = 353) ALT (SGPT) (BEAKER) < U/L 6-55 L (test code = 347) EGFR (BEAKER) (test mL/min/1.73 INSUFFIC IENT code = 1092) sq m CLINICAL DATA T O CALCULATE ESTIM ATED GFR. [id number] 09:41:00 Test Item Value Reference Range Interpretation Comments PHOSPHORUS (BEAKER) (test code = 1.6 mg/dL 2.3-4.7 L 604) LACTATE DEHYDROGENASE (LDH)2016-07-19 09:41:00 Test Item Value Reference Range Interpretation Comments LACTATE DEHYDROGENASE (BEAKER) (test 209 U/L 125-220 code = 635) URINALYSIS W/ REFLEX URINE [id number] 09:24:00 Test Item Value Reference Range Interpretation Comments COLOR (BEAKER) (test code = 470) Yellow CLARITY (BEAKER) (test code = 469) Clear SPECIFIC GRAVITY UA (BEAKER) (test 1.018 1.001-1.035 code = 468) PH UA (BEAKER) (test code = 467) 5.5 5.0-8.0 PROTEIN UA (BEAKER) (test code = Negative Negative 464) GLUCOSE UA (BEAKER) (test code = Negative Negative 365) KETONES UA (BEAKER) (test code = Negative Negative 371) BILIRUBIN UA (BEAKER) (test code = Negative Negative 462) BLOOD UA (BEAKER) (test code = 461) Negative Negative NITRITE UA (BEAKER) (test code = Negative Negative 465) LEUKOCYTE ESTERASE UA (BEAKER) Negative Negative (test code = 466) UROBILINOGEN UA (BEAKER) (test code 0.2 mg/dL 0.2-1.0 = 463) RBC UA (BEAKER) (test code = 519) 1 /HPF WBC UA (BEAKER) (test code = 520) 1 /HPF MUCUS (BEAKER) (test code = 1574) Rare SQUAMOUS EPITHELIAL (BEAKER) (test < /HPF code = 516) SOURCE(BEAKER) (test code = 2795) CBC W/PLT COUNT & AUTO [id number] 08:54:00 Test Item Value Reference Range Interpretation Comments WHITE BLOOD CELL COUNT (BEAKER) 5.3 K/ L 4.0-10.0 (test code = 775) RED BLOOD CELL COUNT (BEAKER) 3.90 M/ L 4.20-5.80 L (test code = 761) HEMOGLOBIN (BEAKER) (test code = 11.2 GM/DL 13.0-16.8 L 410) HEMATOCRIT (BEAKER) (test code = 35.4 % 40.0-50.0 L 411) MEAN CORPUSCULAR VOLUME (BEAKER) 90.9 fL 82.0-98.0 (test code = 753) MEAN CORPUSCULAR HEMOGLOBIN 28.6 pg 27.0-33.0 (BEAKER) (test code = 751) MEAN CORPUSCULAR HEMOGLOBIN CONC 31.5 GM/DL 32.0-36.0 L (BEAKER) (test code = 752) RED CELL DISTRIBUTION WIDTH 12.6 % 10.3-14.2 (BEAKER) (test code = 412) PLATELET COUNT (BEAKER) (test 148 K/CU MM 150-430 L code = 756) MEAN PLATELET VOLUME (BEAKER) 8.7 fL 6.5-10.5 (test code = 754) NUCLEATED RED BLOOD CELLS 0 /100 WBC 0-0 (BEAKER) (test code = 413) NEUTROPHILS RELATIVE PERCENT 59 % (BEAKER) (test code = 429) LYMPHOCYTES RELATIVE PERCENT 29 % (BEAKER) (test code = 430) MONOCYTES RELATIVE PERCENT 9 % (BEAKER) (test code = 431) EOSINOPHILS RELATIVE PERCENT 2 % (BEAKER) (test code = 432) BASOPHILS RELATIVE PERCENT 1 % (BEAKER) (test code = 437) NEUTROPHILS ABSOLUTE COUNT 3.16 K/ L 1.80-8.00 (BEAKER) (test code = 670) LYMPHOCYTES ABSOLUTE COUNT 1.54 K/ L 1.48-4.50 (BEAKER) (test code = 414) MONOCYTES ABSOLUTE COUNT (BEAKER) 0.50 K/ L 0.00-1.30 (test code = 415) EOSINOPHILS ABSOLUTE COUNT 0.09 K/ L 0.00-0.50 (BEAKER) (test code = 416) BASOPHILS ABSOLUTE COUNT (BEAKER) 0.04 K/ L 0.00-0.20 (test code = 417) 0.00TACROLIMUS [id number] 12:18:00 Test Item Value Reference Range Interpretation Comments TACROLIMUS BLOOD (BEAKER) (test 9.6 ng/mL 10.0-20.0 L code = 657) COMPREHENSIVE METABOLIC [id number] 08:55:00 Test Item Value Reference Range Interpretation Comments TOTAL PROTEIN 6.1 gm/dL 6.0-8.3 (BEAKER) (test code = 770) ALBUMIN (BEAKER) 3.7 g/dL 3.5-5.0 (test code = 1145) ALKALINE PHOSPHATASE 89 U/L 40-150 (BEAKER) (test code = 346) BILIRUBIN TOTAL 0.4 mg/dL 0.2-1.2 (BEAKER) (test code = 377) SODIUM (BEAKER) 140 meq/L 136-145 (test code = 381) POTASSIUM (BEAKER) 5.0 meq/L 3.5-5.1 (test code = 379) CHLORIDE (BEAKER) 111 meq/L 98-107 H (test code = 382) CO2 (BEAKER) (test 23 meq/L 22-29 code = 355) BLOOD UREA NITROGEN 23 mg/dL 7-21 H (BEAKER) (test code = 354) CREATININE (BEAKER) 1.74 mg/dL 0.57-1.25 H (test code = 358) GLUCOSE RANDOM 113 mg/dL 70-105 H (BEAKER) (test code = 652) CALCIUM (BEAKER) 10.6 mg/dL 8.4-10.2 H (test code = 697) AST (SGOT) (BEAKER) 8 U/L 5-34 (test code = 353) ALT (SGPT) (BEAKER) < U/L 6-55 L (test code = 347) EGFR (BEAKER) (test mL/min/1.73 INSUFFIC IENT code = 1092) sq m CLINICAL DATA T O CALCULATE ESTIM ATED GFR. [id number] 08:53:00 Test Item Value Reference Range Interpretation Comments PHOSPHORUS (BEAKER) (test code = 2.2 mg/dL 2.3-4.7 L 604) LACTATE DEHYDROGENASE (LDH)2016-07-12 08:53:00 Test Item Value Reference Range Interpretation Comments LACTATE DEHYDROGENASE (BEAKER) (test 144 U/L 125-220 code = 635) URINALYSIS W/ REFLEX URINE [id number] 08:45:00 Test Item Value Reference Range Interpretation Comments COLOR (BEAKER) (test code = 470) Yellow CLARITY (BEAKER) (test code = 469) Clear SPECIFIC GRAVITY UA (BEAKER) (test 1.023 1.001-1.035 code = 468) PH UA (BEAKER) (test code = 467) 6.5 5.0-8.0 PROTEIN UA (BEAKER) (test code = 30 mg/dL Negative A 464) GLUCOSE UA (BEAKER) (test code = Negative Negative 365) KETONES UA (BEAKER) (test code = Negative Negative 371) BILIRUBIN UA (BEAKER) (test code = Negative Negative 462) BLOOD UA (BEAKER) (test code = Negative Negative 461) NITRITE UA (BEAKER) (test code = Negative Negative 465) LEUKOCYTE ESTERASE UA (BEAKER) Negative Negative (test code = 466) UROBILINOGEN UA (BEAKER) (test 0.2 mg/dL 0.2-1.0 code = 463) RBC UA (BEAKER) (test code = 519) 1 /HPF WBC UA (BEAKER) (test code = 520) 4 /HPF MUCUS (BEAKER) (test code = 1574) Occasional SOURCE(BEAKER) (test code = 6942) CBC W/PLT COUNT & AUTO [id number] 08:26:00 Test Item Value Reference Range Interpretation Comments WHITE BLOOD CELL COUNT (BEAKER) 5.8 K/ L 4.0-10.0 (test code = 775) RED BLOOD CELL COUNT (BEAKER) 3.70 M/ L 4.20-5.80 L (test code = 761) HEMOGLOBIN (BEAKER) (test code = 11.1 GM/DL 13.0-16.8 L 410) HEMATOCRIT (BEAKER) (test code = 33.9 % 40.0-50.0 L 411) MEAN CORPUSCULAR VOLUME (BEAKER) 91.7 fL 82.0-98.0 (test code = 753) MEAN CORPUSCULAR HEMOGLOBIN 30.1 pg 27.0-33.0 (BEAKER) (test code = 751) MEAN CORPUSCULAR HEMOGLOBIN CONC 32.9 GM/DL 32.0-36.0 (BEAKER) (test code = 752) RED CELL DISTRIBUTION WIDTH 12.1 % 10.3-14.2 (BEAKER) (test code = 412) PLATELET COUNT (BEAKER) (test 163 K/CU MM 150-430 code = 756) MEAN PLATELET VOLUME (BEAKER) 8.2 fL 6.5-10.5 (test code = 754) NUCLEATED RED BLOOD CELLS 0 /100 WBC 0-0 (BEAKER) (test code = 413) NEUTROPHILS RELATIVE PERCENT 64 % (BEAKER) (test code = 429) LYMPHOCYTES RELATIVE PERCENT 25 % (BEAKER) (test code = 430) MONOCYTES RELATIVE PERCENT 8 % (BEAKER) (test code = 431) EOSINOPHILS RELATIVE PERCENT 1 % (BEAKER) (test code = 432) BASOPHILS RELATIVE PERCENT 1 % (BEAKER) (test code = 437) NEUTROPHILS ABSOLUTE COUNT 3.72 K/ L 1.80-8.00 (BEAKER) (test code = 670) LYMPHOCYTES ABSOLUTE COUNT 1.45 K/ L 1.48-4.50 L (BEAKER) (test code = 414) MONOCYTES ABSOLUTE COUNT (BEAKER) 0.49 K/ L 0.00-1.30 (test code = 415) EOSINOPHILS ABSOLUTE COUNT 0.07 K/ L 0.00-0.50 (BEAKER) (test code = 416) BASOPHILS ABSOLUTE COUNT (BEAKER) 0.05 K/ L 0.00-0.20 (test code = 417) 0.00BK VIRUS PCR, [id number] 14:55:00 Test Item Value Reference Range Interpretation Comments BK VIRUS, PLASMA, NEG Negative or below the (BEAKER) (test code = linear range of the 2145) assay (<1,000 copies/mL) Patients may have replicating BK Virus which is of no clinical significance. Viral load measurements are helpful to identify BK Virus replication of potential clinical significance. Consensus recommendations have been published of threshold values for the presumptive diagnosis of polyomavirus-associated nephropathy (Transplantation 2005;79:[id number]).A BK Virus load greater than 5,000-10,000 copies/mL in the plasma is consistent with the presumptive diagnosis of polyoma-associated nephropathy in renal transplant recipients.BK Virus DNA was assessed using quantitative polymerase chain reaction and fluorescent monitoring of a specific hybridized probe. Genetic variation and other factors can affect the accuracy of nucleic acid testing. Therefore, the results should be interpreted in light of clinical data.This test was developed and its performance characteristics determined by the [facility] Pathology Department, Section of Molecular Pathology. It has not been cleared or approved by the U.S. Food and Drug Administration (FDA). Since FDA approval is not required for clinicaluse of the test, validation was done as required by the Clinical Laboratory Improvement Amendments of 1988.CMV PCR, QUANTITATIVE 2016-07-06 09:47:00 Test Item Value Reference Range Interpretation Comments CMV VIRAL LOAD - Negative or below the NEGATIVE (BEAKER) (test linear range of the code = 2558) assay (<375 copies/mL) Cytomegalovirus (CMV) infection can cause significant disease in immunosuppressed patients. However,it is common for CMV to manifest as a limited infection which is of no clinical significance in immunosuppressed patients or in healthy individuals.Viral load measurements are helpful to identify clinical CMV infection and to guide the pre-emptive management of antiviral therapy. For treatment of CMVinfection due to reactivation in transplant recipients, a threshold between 4,000 and 5,000 copies/mL is suggested. For treatment of primary CMV infection, a lower threshold can be used.CMV infection may also be monitored using weekly serial measurements. Serial measurements of CMV DNA viral load canbe evaluated by identifying a 10-fold change, as well as assessing the CMV DNA viral load and the clinical context for each patient.The plasma CMV DNA viral load was detected using quantitative polymerase chain reaction and fluorescent monitoring of a specific hybridized probe. Genetic variation and ot her factors can affect the accuracy of nucleic acid testing. Therefore, the results should be interpreted in light of clinical data. A negative result may not exclude the presence of CMV disease.This test was developed and its performance characteristics determined by the [facility] Path ology Department, Section of Molecular Pathology. It has not been cleared or approved by the U.S. Food and Drug Administration (FDA), since FDA approval is not required for clinical use of the test. Validation was done as required by The Clinical Laboratory Improvement Amendments of 1988.TACROLIMUS LEVEL 2016-07-05 12:10:00 Test Item Value Reference Range Interpretation Comments TACROLIMUS BLOOD (BEAKER) (test 9.0 ng/mL 10.0-20.0 L code = 657) COMPREHENSIVE METABOLIC [id number] 10:22:00 Test Item Value Reference Range Interpretation Comments TOTAL PROTEIN 6.2 gm/dL 6.0-8.3 (BEAKER) (test code = 770) ALBUMIN (BEAKER) 3.6 g/dL 3.5-5.0 (test code = 1145) ALKALINE PHOSPHATASE 102 U/L 40-150 (BEAKER) (test code = 346) BILIRUBIN TOTAL 0.3 mg/dL 0.2-1.2 (BEAKER) (test code = 377) SODIUM (BEAKER) 139 meq/L 136-145 (test code = 381) POTASSIUM (BEAKER) 4.7 meq/L 3.5-5.1 (test code = 379) CHLORIDE (BEAKER) 112 meq/L 98-107 H (test code = 382) CO2 (BEAKER) (test 21 meq/L 22-29 L code = 355) BLOOD UREA NITROGEN 29 mg/dL 7-21 H (BEAKER) (test code = 354) CREATININE (BEAKER) 1.81 mg/dL 0.57-1.25 H (test code = 358) GLUCOSE RANDOM 101 mg/dL 70-105 (BEAKER) (test code = 652) CALCIUM (BEAKER) 10.7 mg/dL 8.4-10.2 H (test code = 697) AST (SGOT) (BEAKER) 11 U/L 5-34 (test code = 353) ALT (SGPT) (BEAKER) 7 U/L 6-55 (test code = 347) EGFR (BEAKER) (test mL/min/1.73 INSUFFIC IENT code = 1092) sq m CLINICAL DATA T O CALCULATE ESTIM ATED GFR. Specimen slightly [id number] 10:20:00 Test Item Value Reference Range Interpretation Comments PHOSPHORUS (BEAKER) (test code = 2.0 mg/dL 2.3-4.7 L 604) LACTATE DEHYDROGENASE (LDH)2016-07-05 10:20:00 Test Item Value Reference Range Interpretation Comments LACTATE DEHYDROGENASE (BEAKER) (test 182 U/L 125-220 code = 635) CBC W/PLT COUNT & AUTO [id number] 09:30:00 Test Item Value Reference Range Interpretation Comments WHITE BLOOD CELL COUNT (BEAKER) 6.0 K/ L 4.0-10.0 (test code = 775) RED BLOOD CELL COUNT (BEAKER) 3.53 M/ L 4.20-5.80 L (test code = 761) HEMOGLOBIN (BEAKER) (test code = 11.0 GM/DL 13.0-16.8 L 410) HEMATOCRIT (BEAKER) (test code = 32.4 % 40.0-50.0 L 411) MEAN CORPUSCULAR VOLUME (BEAKER) 92.0 fL 82.0-98.0 (test code = 753) MEAN CORPUSCULAR HEMOGLOBIN 31.2 pg 27.0-33.0 (BEAKER) (test code = 751) MEAN CORPUSCULAR HEMOGLOBIN CONC 33.9 GM/DL 32.0-36.0 (BEAKER) (test code = 752) RED CELL DISTRIBUTION WIDTH 11.8 % 10.3-14.2 (BEAKER) (test code = 412) PLATELET COUNT (BEAKER) (test 191 K/CU MM 150-430 code = 756) MEAN PLATELET VOLUME (BEAKER) 7.7 fL 6.5-10.5 (test code = 754) NUCLEATED RED BLOOD CELLS 0 /100 WBC 0-0 (BEAKER) (test code = 413) NEUTROPHILS RELATIVE PERCENT 69 % (BEAKER) (test code = 429) LYMPHOCYTES RELATIVE PERCENT 21 % (BEAKER) (test code = 430) MONOCYTES RELATIVE PERCENT 8 % (BEAKER) (test code = 431) EOSINOPHILS RELATIVE PERCENT 2 % (BEAKER) (test code = 432) BASOPHILS RELATIVE PERCENT 1 % (BEAKER) (test code = 437) NEUTROPHILS ABSOLUTE COUNT 4.13 K/ L 1.80-8.00 (BEAKER) (test code = 670) LYMPHOCYTES ABSOLUTE COUNT 1.28 K/ L 1.48-4.50 L (BEAKER) (test code = 414) MONOCYTES ABSOLUTE COUNT (BEAKER) 0.47 K/ L 0.00-1.30 (test code = 415) EOSINOPHILS ABSOLUTE COUNT 0.11 K/ L 0.00-0.50 (BEAKER) (test code = 416) BASOPHILS ABSOLUTE COUNT (BEAKER) 0.05 K/ L 0.00-0.20 (test code = 417) 0.00URINALYSIS W/ REFLEX URINE [id number] 08:56:00 Test Item Value Reference Range Interpretation Comments COLOR (BEAKER) (test code = 470) Yellow CLARITY (BEAKER) (test code = 469) Clear SPECIFIC GRAVITY UA (BEAKER) (test 1.030 1.001-1.035 code = 468) PH UA (BEAKER) (test code = 467) 6.5 5.0-8.0 PROTEIN UA (BEAKER) (test code = 30 mg/dL Negative A 464) GLUCOSE UA (BEAKER) (test code = Negative Negative 365) KETONES UA (BEAKER) (test code = Negative Negative 371) BILIRUBIN UA (BEAKER) (test code = Negative Negative 462) BLOOD UA (BEAKER) (test code = 461) Negative Negative NITRITE UA (BEAKER) (test code = Negative Negative 465) LEUKOCYTE ESTERASE UA (BEAKER) Negative Negative (test code = 466) UROBILINOGEN UA (BEAKER) (test code 2.0 mg/dL 0.2-1.0 H = 463) RBC UA (BEAKER) (test code = 519) 1 /HPF WBC UA (BEAKER) (test code = 520) 2 /HPF MUCUS (BEAKER) (test code = 1574) Few SQUAMOUS EPITHELIAL (BEAKER) (test 1 /HPF code = 516) HYALINE CASTS (BEAKER) (test code = 3 /LPF 514) SOURCE(BEAKER) (test code = 2790) CMV PCR, [id number] 17:55:00 Test Item Value Reference Range Interpretation Comments CMV VIRAL LOAD - Negative or below the NEGATIVE (BEAKER) (test linear range of the code = 2558) assay (<375 copies/mL) Cytomegalovirus (CMV) infection can cause significant disease in immunosuppressed patients. However,it is common for CMV to manifest as a limited infection which is of no clinical significance in immunosuppressed patients or in healthy individuals.Viral load measurements are helpful to identify clinical CMV infection and to guide the pre-emptive management of antiviral therapy. For treatment of CMVinfection due to reactivation in transplant recipients, a threshold between 4,000 and 5,000 copies/mL is suggested. For treatment of primary CMV infection, a lower threshold can be used.CMV infection may also be monitored using weekly serial measurements. Serial measurements of CMV DNA viral load canbe evaluated by identifying a 10-fold change, as well as assessing the CMV DNA viral load and the clinical context for each patient.The plasma CMV DNA viral load was detected using quantitative polymerase chain reaction and fluorescent monitoring of a specific hybridized probe. Genetic variation and ot her factors can affect the accuracy of nucleic acid testing. Therefore, the results should be interpreted in light of clinical data. A negative result may not exclude the presence of CMV disease.This test was developed and its performance characteristics determined by the [facility] Path ology Department, Section of Molecular Pathology. It has not been cleared or approved by the U.S. Food and Drug Administration (FDA), since FDA approval is not required for clinical use of the test. Validation was done as required by The Clinical Laboratory Improvement Amendments of 1988.TACROLIMUS LEVEL 2016-06-29 09:25:00 Test Item Value Reference Range Interpretation Comments TACROLIMUS BLOOD (BEAKER) (test 7.1 ng/mL 10.0-20.0 L code = 657) COMPREHENSIVE METABOLIC [id number] 08:43:00 Test Item Value Reference Range Interpretation Comments TOTAL PROTEIN 6.4 gm/dL 6.0-8.3 (BEAKER) (test code = 770) ALBUMIN (BEAKER) 3.9 g/dL 3.5-5.0 (test code = 1145) ALKALINE PHOSPHATASE 98 U/L 40-150 (BEAKER) (test code = 346) BILIRUBIN TOTAL 0.4 mg/dL 0.2-1.2 (BEAKER) (test code = 377) SODIUM (BEAKER) 136 meq/L 136-145 (test code = 381) POTASSIUM (BEAKER) 4.5 meq/L 3.5-5.1 (test code = 379) CHLORIDE (BEAKER) 108 meq/L 98-107 H (test code = 382) CO2 (BEAKER) (test 21 meq/L 22-29 L code = 355) BLOOD UREA NITROGEN 22 mg/dL 7-21 H (BEAKER) (test code = 354) CREATININE (BEAKER) 1.65 mg/dL 0.57-1.25 H (test code = 358) GLUCOSE RANDOM 97 mg/dL 70-105 (BEAKER) (test code = 652) CALCIUM (BEAKER) 10.9 mg/dL 8.4-10.2 H (test code = 697) AST (SGOT) (BEAKER) 9 U/L 5-34 (test code = 353) ALT (SGPT) (BEAKER) < U/L 6-55 L (test code = 347) EGFR (BEAKER) (test mL/min/1.73 INSUFFIC IENT code = 1092) sq m CLINICAL DATA T O CALCULATE ESTIM ATED GFR. Specimen slightly [id number] 08:39:00 Test Item Value Reference Range Interpretation Comments PHOSPHORUS (BEAKER) (test code = 2.0 mg/dL 2.3-4.7 L 604) LACTATE DEHYDROGENASE (LDH)2016-06-29 08:39:00 Test Item Value Reference Range Interpretation Comments LACTATE DEHYDROGENASE (BEAKER) (test 135 U/L 125-220 code = 635) CBC W/PLT COUNT & AUTO [id number] 08:21:00 Test Item Value Reference Range Interpretation Comments WHITE BLOOD CELL COUNT (BEAKER) 5.5 K/ L 4.0-10.0 (test code = 775) RED BLOOD CELL COUNT (BEAKER) 3.59 M/ L 4.20-5.80 L (test code = 761) HEMOGLOBIN (BEAKER) (test code = 11.1 GM/DL 13.0-16.8 L 410) HEMATOCRIT (BEAKER) (test code = 33.2 % 40.0-50.0 L 411) MEAN CORPUSCULAR VOLUME (BEAKER) 92.5 fL 82.0-98.0 (test code = 753) MEAN CORPUSCULAR HEMOGLOBIN 30.9 pg 27.0-33.0 (BEAKER) (test code = 751) MEAN CORPUSCULAR HEMOGLOBIN CONC 33.4 GM/DL 32.0-36.0 (BEAKER) (test code = 752) RED CELL DISTRIBUTION WIDTH 11.7 % 10.3-14.2 (BEAKER) (test code = 412) PLATELET COUNT (BEAKER) (test 216 K/CU MM 150-430 code = 756) MEAN PLATELET VOLUME (BEAKER) 7.4 fL 6.5-10.5 (test code = 754) NUCLEATED RED BLOOD CELLS 0 /100 WBC 0-0 (BEAKER) (test code = 413) NEUTROPHILS RELATIVE PERCENT 67 % (BEAKER) (test code = 429) LYMPHOCYTES RELATIVE PERCENT 22 % (BEAKER) (test code = 430) MONOCYTES RELATIVE PERCENT 9 % (BEAKER) (test code = 431) EOSINOPHILS RELATIVE PERCENT 2 % (BEAKER) (test code = 432) BASOPHILS RELATIVE PERCENT 1 % (BEAKER) (test code = 437) NEUTROPHILS ABSOLUTE COUNT 3.67 K/ L 1.80-8.00 (BEAKER) (test code = 670) LYMPHOCYTES ABSOLUTE COUNT 1.18 K/ L 1.48-4.50 L (BEAKER) (test code = 414) MONOCYTES ABSOLUTE COUNT (BEAKER) 0.48 K/ L 0.00-1.30 (test code = 415) EOSINOPHILS ABSOLUTE COUNT 0.10 K/ L 0.00-0.50 (BEAKER) (test code = 416) BASOPHILS ABSOLUTE COUNT (BEAKER) 0.04 K/ L 0.00-0.20 (test code = 417) 0.00URINALYSIS W/ REFLEX URINE [id number] 08:20:00 Test Item Value Reference Range Interpretation Comments COLOR (BEAKER) (test code = 470) Yellow CLARITY (BEAKER) (test code = 469) Clear SPECIFIC GRAVITY UA (BEAKER) (test 1.023 1.001-1.035 code = 468) PH UA (BEAKER) (test code = 467) 6.5 5.0-8.0 PROTEIN UA (BEAKER) (test code = 20 mg/dL Negative A 464) GLUCOSE UA (BEAKER) (test code = Negative Negative 365) KETONES UA (BEAKER) (test code = Negative Negative 371) BILIRUBIN UA (BEAKER) (test code = Negative Negative 462) BLOOD UA (BEAKER) (test code = 461) Negative Negative NITRITE UA (BEAKER) (test code = Negative Negative 465) LEUKOCYTE ESTERASE UA (BEAKER) Negative Negative (test code = 466) UROBILINOGEN UA (BEAKER) (test code 0.2 mg/dL 0.2-1.0 = 463) RBC UA (BEAKER) (test code = 519) 1 /HPF WBC UA (BEAKER) (test code = 520) 2 /HPF MUCUS (BEAKER) (test code = 1574) Rare SOURCE(BEAKER) (test code = 2795) CMV PCR, [id number] 14:57:00 Test Item Value Reference Range Interpretation Comments CMV VIRAL LOAD - Negative or below the NEGATIVE (BEAKER) (test linear range of the code = 2558) assay (<375 copies/mL) Cytomegalovirus (CMV) infection can cause significant disease in immunosuppressed patients. However,it is common for CMV to manifest as a limited infection which is of no clinical significance in immunosuppressed patients or in healthy individuals.Viral load measurements are helpful to identify clinical CMV infection and to guide the pre-emptive management of antiviral therapy. For treatment of CMVinfection due to reactivation in transplant recipients, a threshold between 4,000 and 5,000 copies/mL is suggested. For treatment of primary CMV infection, a lower threshold can be used.CMV infection may also be monitored using weekly serial measurements. Serial measurements of CMV DNA viral load canbe evaluated by identifying a 10-fold change, as well as assessing the CMV DNA viral load and the clinical context for each patient.The plasma CMV DNA viral load was detected using quantitative polymerase chain reaction and fluorescent monitoring of a specific hybridized probe. Genetic variation and ot her factors can affect the accuracy of nucleic acid testing. Therefore, the results should be interpreted in light of clinical data. A negative result may not exclude the presence of CMV disease.This test was developed and its performance characteristics determined by the [facility] Path ology Department, Section of Molecular Pathology. It has not been cleared or approved by the U.S. Food and Drug Administration (FDA), since FDA approval is not required for clinical use of the test. Validation was done as required by The Clinical Laboratory Improvement Amendments of 1988.TACROLIMUS LEVEL 2016-06-21 11:00:00 Test Item Value Reference Range Interpretation Comments TACROLIMUS BLOOD (BEAKER) (test 8.1 ng/mL 10.0-20.0 L code = 657) COMPREHENSIVE METABOLIC [id number] 08:59:00 Test Item Value Reference Range Interpretation Comments TOTAL PROTEIN 5.7 gm/dL 6.0-8.3 L (BEAKER) (test code = 770) ALBUMIN (BEAKER) 3.7 g/dL 3.5-5.0 (test code = 1145) ALKALINE PHOSPHATASE 90 U/L 40-150 (BEAKER) (test code = 346) BILIRUBIN TOTAL 0.4 mg/dL 0.2-1.2 (BEAKER) (test code = 377) SODIUM (BEAKER) 139 meq/L 136-145 (test code = 381) POTASSIUM (BEAKER) 4.6 meq/L 3.5-5.1 (test code = 379) CHLORIDE (BEAKER) 109 meq/L 98-107 H (test code = 382) CO2 (BEAKER) (test 23 meq/L 22-29 code = 355) BLOOD UREA NITROGEN 19 mg/dL 7-21 (BEAKER) (test code = 354) CREATININE (BEAKER) 1.73 mg/dL 0.57-1.25 H (test code = 358) GLUCOSE RANDOM 101 mg/dL 70-105 (BEAKER) (test code = 652) CALCIUM (BEAKER) 10.4 mg/dL 8.4-10.2 H (test code = 697) AST (SGOT) (BEAKER) 9 U/L 5-34 (test code = 353) ALT (SGPT) (BEAKER) 6 U/L 6-55 (test code = 347) EGFR (BEAKER) (test mL/min/1.73 INSUFFIC IENT code = 1092) sq m CLINICAL DATA T O CALCULATE ESTIM ATED GFR. [id number] 08:49:00 Test Item Value Reference Range Interpretation Comments PHOSPHORUS (BEAKER) (test code = 1.8 mg/dL 2.3-4.7 L 604) LACTATE DEHYDROGENASE (LDH)2016-06-21 08:49:00 Test Item Value Reference Range Interpretation Comments LACTATE DEHYDROGENASE (BEAKER) (test 127 U/L 125-220 code = 635) URINALYSIS W/ REFLEX URINE [id number] 08:31:00 Test Item Value Reference Range Interpretation Comments COLOR (BEAKER) (test code = 470) Yellow CLARITY (BEAKER) (test code = 469) Clear SPECIFIC GRAVITY UA (BEAKER) (test 1.022 1.001-1.035 code = 468) PH UA (BEAKER) (test code = 467) 8.5 5.0-8.0 H PROTEIN UA (BEAKER) (test code = 50 mg/dL Negative A 464) GLUCOSE UA (BEAKER) (test code = Negative Negative 365) KETONES UA (BEAKER) (test code = Negative Negative 371) BILIRUBIN UA (BEAKER) (test code = Negative Negative 462) BLOOD UA (BEAKER) (test code = 461) Negative Negative NITRITE UA (BEAKER) (test code = Negative Negative 465) LEUKOCYTE ESTERASE UA (BEAKER) Negative Negative (test code = 466) UROBILINOGEN UA (BEAKER) (test code 0.2 mg/dL 0.2-1.0 = 463) RBC UA (BEAKER) (test code = 519) 1 /HPF WBC UA (BEAKER) (test code = 520) 4 /HPF SQUAMOUS EPITHELIAL (BEAKER) (test < /HPF code = 516) AMORPHOUS CRYSTALS (BEAKER) (test Rare code = 1584) SOURCE(BEAKER) (test code = 2795) CBC W/PLT COUNT & AUTO [id number] 08:23:00 Test Item Value Reference Range Interpretation Comments WHITE BLOOD CELL COUNT (BEAKER) 5.5 K/ L 4.0-10.0 (test code = 775) RED BLOOD CELL COUNT (BEAKER) 3.28 M/ L 4.20-5.80 L (test code = 761) HEMOGLOBIN (BEAKER) (test code = 10.4 GM/DL 13.0-16.8 L 410) HEMATOCRIT (BEAKER) (test code = 31.1 % 40.0-50.0 L 411) MEAN CORPUSCULAR VOLUME (BEAKER) 94.7 fL 82.0-98.0 (test code = 753) MEAN CORPUSCULAR HEMOGLOBIN 31.8 pg 27.0-33.0 (BEAKER) (test code = 751) MEAN CORPUSCULAR HEMOGLOBIN CONC 33.6 GM/DL 32.0-36.0 (BEAKER) (test code = 752) RED CELL DISTRIBUTION WIDTH 11.9 % 10.3-14.2 (BEAKER) (test code = 412) PLATELET COUNT (BEAKER) (test 190 K/CU MM 150-430 code = 756) MEAN PLATELET VOLUME (BEAKER) 7.4 fL 6.5-10.5 (test code = 754) NUCLEATED RED BLOOD CELLS 0 /100 WBC 0-0 (BEAKER) (test code = 413) NEUTROPHILS RELATIVE PERCENT 66 % (BEAKER) (test code = 429) LYMPHOCYTES RELATIVE PERCENT 22 % (BEAKER) (test code = 430) MONOCYTES RELATIVE PERCENT 10 % (BEAKER) (test code = 431) EOSINOPHILS RELATIVE PERCENT 1 % (BEAKER) (test code = 432) BASOPHILS RELATIVE PERCENT 0 % (BEAKER) (test code = 437) NEUTROPHILS ABSOLUTE COUNT 3.66 K/ L 1.80-8.00 (BEAKER) (test code = 670) LYMPHOCYTES ABSOLUTE COUNT 1.24 K/ L 1.48-4.50 L (BEAKER) (test code = 414) MONOCYTES ABSOLUTE COUNT (BEAKER) 0.53 K/ L 0.00-1.30 (test code = 415) EOSINOPHILS ABSOLUTE COUNT 0.07 K/ L 0.00-0.50 (BEAKER) (test code = 416) BASOPHILS ABSOLUTE COUNT (BEAKER) 0.02 K/ L 0.00-0.20 (test code = 417) 0.00BK VIRUS PCR, [id number] 17:53:00 Test Item Value Reference Range Interpretation Comments BK VIRUS, PLASMA, NEG Negative or below the (BEAKER) (test code = linear range of the 2145) assay (<1,000 copies/mL) Patients may have replicating BK Virus which is of no clinical significance. Viral load measurements are helpful to identify BK Virus replication of potential clinical significance. Consensus recommendations have been published of threshold values for the presumptive diagnosis of polyomavirus-associated nephropathy (Transplantation 2005;79:[id number]).A BK Virus load greater than 5,000-10,000 copies/mL in the plasma is consistent with the presumptive diagnosis of polyoma-associated nephropathy in renal transplant recipients.BK Virus DNA was assessed using quantitative polymerase chain reaction and fluorescent monitoring of a specific hybridized probe. Genetic variation and other factors can affect the accuracy of nucleic acid testing. Therefore, the results should be interpreted in light of clinical data.This test was developed and its performance characteristics determined by the [facility] Pathology Department, Section of Molecular Pathology. It has not been cleared or approved by the U.S. Food and Drug Administration (FDA). Since FDA approval is not required for clinicaluse of the test, validation was done as required by the Clinical Laboratory Improvement Amendments of 1988.
[2019-12-20] MEDS ORDERED: NA CHLORIDE 0.9% 500 ML ONE (18:19)
[2019-12-20 18:41] LABS: Absolute Lymphocytes (CBC) 0.6 K/uL (0.7-4.9); Basophils % 0.4 % (0-1.3); Hematocrit 42.8 % (39.6-49.0); Lymphocytes % 15.6 % (15.3-44.8); MPV 9.2 fL (7.6-11.3); Protime INR 1.08; RBC Red Blood Cell Count 4.95 M/uL (4.33-5.43)
--- NOTE | 2019-12-20 18:50 | RAD REPORT ---
EXAM DESCRIPTION: Sharri Single View12/20/2019 6:44 pm CLINICAL HISTORY: Cough COMPARISON: 2016 FINDINGS: Mild patchy bilateral pulmonary opacities. The heart is normal size IMPRESSION: Mild patchy bilateral pulmonary opacities probably pneumonia
[2019-12-20] MEDS ORDERED: dexAMETHasone 10 MG/ML VIAL ONE (19:20)
[2019-12-20] MEDS ORDERED: AZITHROMYCIN 500 MG INJ IVPB ONE (19:20)
[2019-12-20 19:21] LABS: ALT/SGPT 32 U/L (12-78); AST/SGOT 33 U/L (15-37); Albumin 3.3 g/dL (3.4-5.0); Alkaline Phosphatase 95 U/L (45-117); BUN Blood Urea Nitrogen 33 mg/dL (7-18); Bicarbonate 21 mmol/L (21-32); Bilirubin Direct 0.2 mg/dL (0-0.2); Bilirubin Total 0.5 mg/dL (0.2-1.0); Glucose Level 136 mg/dL (74-106); Magnesium 1.5 mg/dL (1.8-2.4); NT PRO-BNP 430 pg/mL (<125); Potassium 4.7 mmol/L (3.5-5.1); Protein, Total 7.6 g/dL (6.4-8.2); Sodium Level 137 mmol/L (136-145); Troponin (Emerg Dept Use Only) < 0.02 ng/mL (0.0-0.045)
[2019-12-20] MEDS ORDERED: CEFTRIAXONE/SWI 1gm 1 GM/10 ML SYR ONE (19:21)
[2019-12-20] MEDS ORDERED: NA CHLORIDE 0.9% 250 ML ONE (19:21)
--- NOTE | 2019-12-20 19:38 | EDPHYS ---
Physician Documentation [facility] Name: Aaron Curry Age: 64 yrs Sex: Male : 1955 Arrival Date: 12/20/2019 Time: 17:22 Bed 8 Private MD: ED Physician Bill Chapa HPI: 12/19 17:55 This 64 yrs old Male presents to ER via Ambulatory with complaints of Fever, cp Diarrhea, Shortness Of Breath, Weakness. 17:55 The patient reports fever, that was measured at 101.4 degrees Fahrenheit. cp 17:55 Onset: The symptoms/episode began/occurred 1 week(s) ago. Associated signs and cp symptoms: Pertinent positives: chest pain, cough, diarrhea, shortness of breath, general weakness, Pertinent negatives: abdominal pain, vomiting. Historical: - Allergies: 17:27 No Known Drug Allergies; ll1 - PMHx: 17:27 Hypertension; ll1 - PSHx: 17:27 Hernia repair; Appendectomy; Cholecystectomy; renal transplant; nephrectomy; ll1 - Immunization history:: Flu vaccine is up to date. - Social history:: Smoking status: Patient denies any tobacco usage or history of. Patient/guardian denies using alcohol, street drugs. ROS: 18:00 Constitutional: Negative for fever, poor PO intake. cp 18:00 Eyes: Negative for injury, pain, redness, and discharge. cp 18:00 Cardiovascular: Positive for chest pain, with cough, Negative for edema. 18:00 Respiratory: Positive for cough, "sounds productive", shortness of breath, Negative for wheezing. 18:00 Abdomen/GI: Positive for nausea, diarrhea, Negative for vomiting, constipation. 18:00 : Negative for urinary symptoms. 18:00 Neuro: Positive for weakness, Negative for altered mental status, loss of consciousness, syncope. 18:00 All other systems are negative. Exam: 18:05 Constitutional: The patient appears in no acute distress, alert, non-diaphoretic, cp non-toxic, well developed, well nourished, obviously ill. 18:05 Head/Face: Normocephalic, atraumatic. cp 18:05 Eyes: Periorbital structures: appear normal, Pupils: equal, round, and reactive to light and accomodation, Extraocular movements: intact throughout, Conjunctiva: normal, no exudate, no injection, Sclera: no appreciated abnormality, Lids and lashes: appear normal, bilaterally. 18:05 ENT: External ear(s): are unremarkable, Nose: is normal, Mouth: Lips: moist, Oral mucosa: moist, Posterior pharynx: Airway: no evidence of obstruction, patent. 18:05 Neck: ROM/movement: is normal, is supple, no meningismus, no nuchal rigidity. 18:05 Chest/axilla: Inspection: normal, Palpation: is normal, no crepitus, no tenderness. 18:05 Cardiovascular: Rate: normal, Rhythm: regular, Edema: is not appreciated, JVD: is not appreciated. 18:05 Respiratory: the patient does not display signs of respiratory distress, Respirations: labored breathing, that is mild, shallow respirations, that is mild, Breath sounds: bronchial sounds, that are mild, are heard diffusely, stridor, is not appreciated, wheezing: is not appreciated. 18:05 Abdomen/GI: Inspection: abdomen appears normal, Palpation: abdomen is soft and non-tender, in all quadrants. 18:05 Neuro: Orientation: to person, place \\T\\ time. Mentation: is normal, Cerebellar function: is grossly normal, Motor: moves all fours, strength is normal, Sensation: is normal. 18:45 ECG was reviewed by the Attending Physician. cp Vital Signs: 17:27 BP 106 / 73; Pulse 65; Resp 20; Temp 97.9; Pulse Ox 97% ; Weight 82.55 kg; Height 5 ft. ll1 11 in. (180.34 cm); Pain 0/10; 18:57 BP 109 / 82; Pulse 63; Resp 20; Pulse Ox 97% on 2 lpm NC; ph 19:20 Temp 98.0(O); dh3 19:26 BP 106 / 68; Pulse 65; Resp 19; Temp 98; Pulse Ox 98% on 3 lpm NC; Pain 0/10; rr5 20:30 BP 105 / 80; Pulse 69; Resp 26; Pulse Ox 97% on 3 lpm NC; rr5 21:10 BP 113 / 77; Pulse 65; Resp 24; Temp 98.2; Pulse Ox 95% on 3 lpm NC; rr5 17:27 Body Mass Index 25.38 (82.55 kg, 180.34 cm) ll1 MDM: 17:36 Patient medically screened. nain 18:00 Differential diagnosis: bronchitis, pneumonia gastroenteritis, sepsis, COVID-19, UTI. 19:35 Data reviewed: vital signs, nurses notes, lab test result(s), EKG, radiologic studies, plain films, I have discussed the patient's presentation/case with the attending Emergency Department Physician; and as a result, I will transfer patient. 19:35 Test interpretation: by ED physician or midlevel provider: ECG. 20:45 Physician consultation: was contacted at 20:45, regarding regarding transfer, to [facility]. patient's condition, accepting physician is DR Tinoco. 12/19 17:50 Order name: Basic Metabolic Panel; Complete Time: 19:33 12/19 19:33 Interpretation: Normal except: GLUC 136; BUN 33; CRE 1.91; GFR 36. 12/19 17:50 Order name: CBC with Diff; Complete Time: 18:49 12/19 18:50 Interpretation: Normal except: WBC 3.9; LYMA 0.6. 12/19 17:50 Order name: LFT's; Complete Time: 19:33 12/19 17:50 Order name: Magnesium; Complete Time: 19:33 12/19 17:50 Order name: NT PRO-BNP; Complete Time: 19:33 12/19 17:50 Order name: PT-INR; Complete Time: 18:49 12/19 17:50 Order name: Troponin (emerg Dept Use Only); Complete Time: 19:33 12/19 17:50 Order name: Procalcitonin; Complete Time: 19:33 12/19 17:50 Order name: Lactate; Complete Time: 18:51 12/19 17:50 Order name: Flu; Complete Time: 19:33 cp 12/19 17:50 Order name: Strep; Complete Time: 19:33 12/19 17:50 Order name: Blood Culture Adult (2) 12/19 17:50 Order name: XRAY Chest (1 view); Complete Time: 18:51 12/19 17:50 Order name: EKG; Complete Time: 17:52 12/19 17:50 Order name: Cardiac monitoring; Complete Time: 18:42 12/19 17:50 Order name: EKG - Nurse/Tech; Complete Time: 18:42 cp 12/19 17:50 Order name: IV Saline Lock; Complete Time: 18:42 cp 12/19 17:50 Order name: Labs collected and sent; Complete Time: 18:42 cp 12/19 17:50 Order name: O2 Per Protocol; Complete Time: 18:42 cp 12/19 18:53 Order name: D-Dimer; Complete Time: 19:33 cp 12/19 18:53 Order name: LAB Add On 12/19 19:32 Order name: Throat Culture EDTX 12/19 20:01 Order name: SARS-COV-2 RT PCR; Complete Time: 20:02 EDMS 12/19 20:02 Interpretation: Results reviewed. 12/19 17:50 Order name: O2 Sat Monitoring; Complete Time: 18:43 cp 12/19 17:50 Order name: Droplet/Contact Precautions; Complete Time: 18:44 cp 12/19 17:50 Order name: Notify Health Dept [phone]/ ; Complete Time: 18:44 cp EC:45 Rate is 59 beats/min. Rhythm is regular. PA interval is normal. QRS interval is normal. cp QT interval is normal. T waves are Inverted in leads I, aVL. Interpreted by me. Reviewed by me. Administered Medications: 18:30 Drug: NS 0.9% 500 ml Route: IV; Rate: bolus; Site: right antecubital; ph 19:50 Follow up: IV Status: Completed infusion; IV Intake: 500ml ea 19:18 Drug: Decadron - Dexamethasone 10 mg Route: IVP; Site: right antecubital; rr5 20:00 Follow up: Response: No adverse reaction ea 19:21 Drug: Rocephin 1 grams Route: IV; Rate: calculated rate; Site: right antecubital; rr5 19:50 Follow up: Response: No adverse reaction; IV Status: Completed infusion ea 19:26 Dru mg of (Zithromax 500 mg, NS 0.9% 250 ml) Route: IVPB; Infused Over: 1 hrs; rr5 Site: right antecubital; 20:38 Drug: Magnesium Sulfate 1 grams Route: IVPB; Infused Over: 1 hrs; Site: right rr5 antecubital; 21:57 Follow up: Response: No adverse reaction; IV Status: Completed infusion ea Disposition: 12/20/19 19:37 Transfer ordered to [facility]. Diagnosis are Chest pain, unspecified, Pneumonia due to other specified infectious organisms, Coronavirus infection, unspecified. - Reason for transfer: Higher level of care. - Accepting physician is DR Tinoco. - Condition is Stable. - Problem is new. - Symptoms have improved. Addendum: 12/22/2019 09:06 Co-signature as Attending Physician, Bill Chapa MD I agree with the assessment and c looney plan of care. Signatures: Dispatcher [employer] EDMS Bill Chapa MD MD cha Hall, Patricia, RN RN Bill Davis PA PA cp Antunez, Elena RN RN Jonas Gonzalez, RN RN rr5 Lesly Lester RN RN ll1 Corrections: (The following items were deleted from the chart) 12/19 18:50 18:49 Normal except: WBC 3.9. cp cp 19:02 17:51 CORONAVIRUS+MR.LAB.BRZ ordered. [facility] EDTX 20:03 19:37 12/20/2019 19:37 Transfer ordered to [facility]. cp Diagnosis is Chest pain, unspecified; Pneumonia due to other specified infectious organisms. Reason for transfer: Higher level of care. Accepting physician is doctor. Condition is Stable. Problem is new. Symptoms have improved. cp 21:29 20:03 12/20/2019 19:37 Transfer ordered to [facility]. cp Diagnosis is Chest pain, unspecified; Pneumonia due to other specified infectious organisms; Coronavirus infection, unspecified. Reason for transfer: Higher level of care. Accepting physician is doctor. Condition is Stable. Problem is new. Symptoms have improved. cp 21:56 21:29 12/20/2019 19:37 Transfer ordered to [facility]. ea Diagnosis is Chest pain, unspecified; Pneumonia due to other specified infectious organisms; Coronavirus infection, unspecified. Reason for transfer: Higher level of care. Accepting physician is DR Tinoco. Condition is Stable. Problem is new. Symptoms have improved. cp 12/20 18:04 12/19 17:55 Associated signs and symptoms: Pertinent positives: cp cp
--- NOTE | 2019-12-20 19:38 | ER ---
Nurse's Notes [facility] [place] Name: Aaron Curry Age: 64 yrs Sex: Male : 1955 Arrival Date: 12/20/2019 Time: 17:22 Bed 8 Private MD: Diagnosis: Chest pain, unspecified;Pneumonia due to other specified infectious organisms;Coronavirus infection, unspecified Presentation: 12/19 17:27 Onset of symptoms was December 13, 2019. ll1 17:27 Acuity: MARIS 3 ll1 17:27 Chief complaint: Patient states: Fever, diarrhea, no appetite for 1 week. SOB with ll1 exertion and weakness for 3 days. Fever 101.4 at home. Coronavirus screen: Client denies travel out of the [place] in the last 14 days. chills, diarrhea, fatigue, fever, Client presents with at least one sign or symptom that may indicate coronavirus-19. Standard/surgical mask placed on the client. Ebola Screen: Patient denies travel to an Ebola-affected area in the 21 days before illness onset. Initial Sepsis Screen: Does the patient meet any 2 criteria? No. Patient's initial sepsis screen is negative. Risk Assessment: Do you want to hurt yourself or someone else? Patient reports no desire to harm self or others. 17:27 Method Of Arrival: Ambulatory ll1 18:57 Initial Sepsis Screen: Does the patient have a suspected source of infection? Yes: ph Productive cough/pneumonia. Historical: - Allergies: 17:27 No Known Drug Allergies; ll1 - PMHx: 17:27 Hypertension; ll1 - PSHx: 17:27 Hernia repair; Appendectomy; Cholecystectomy; renal transplant; nephrectomy; ll1 - Immunization history:: Flu vaccine is up to date. - Social history:: Smoking status: Patient denies any tobacco usage or history of. Patient/guardian denies using alcohol, street drugs. Screenin:53 Abuse screen: Denies threats or abuse. Denies injuries from another. Nutritional ph screening: No deficits noted. Tuberculosis screening: No symptoms or risk factors identified. Fall Risk None identified. Assessment: 18:56 General: Appears in no apparent distress. uncomfortable, Behavior is calm, cooperative, ph appropriate for age, Reports chills for fever for. General: Reports fatigue for. Pain: Denies pain. Neuro: Level of Consciousness is awake, alert, obeys commands, Oriented to person, place, time, situation. Cardiovascular: Capillary refill < 3 seconds in bilateral fingers Patient's skin is warm and dry. Respiratory: Reports shortness of breath on exertion Airway is patent Respiratory effort is even, unlabored, Respiratory pattern is regular, symmetrical. GI: Reports diarrhea. Derm: Skin is intact, Skin is pink, warm \T\ dry. Musculoskeletal: Circulation, motion, and sensation intact. Range of motion: intact in all extremities. 20:30 Reassessment: Patient appears in no apparent distress at this time. Patient is alert, rr5 oriented x 3, equal unlabored respirations, skin warm/dry/pink. covid Positive. Reassess by ED provider for transfer to other facility. 21:29 Reassessment: Patient is alert, oriented x 3, equal unlabored respirations, skin rr5 warm/dry/pink. report given to trino BARILLAS [facility]. transfer form signed. 21:53 Reassessment: Patient and/or family updated on plan of care and expected duration. Pain ea level reassessed. Patient is alert, oriented x 3, equal unlabored respirations, skin warm/dry/pink. [facility] at facility for transfer, report given to EMS. Pt left ED via stretcher, on O2 at 2L per nasal cannula, per EMS. Pt tolerating well. Vital Signs: 17:27 BP 106 / 73; Pulse 65; Resp 20; Temp 97.9; Pulse Ox 97% ; Weight 82.55 kg; Height 5 ft. ll1 11 in. (180.34 cm); Pain 0/10; 18:57 BP 109 / 82; Pulse 63; Resp 20; Pulse Ox 97% on 2 lpm NC; ph 19:20 Temp 98.0(O); dh3 19:26 BP 106 / 68; Pulse 65; Resp 19; Temp 98; Pulse Ox 98% on 3 lpm NC; Pain 0/10; rr5 20:30 BP 105 / 80; Pulse 69; Resp 26; Pulse Ox 97% on 3 lpm NC; rr5 21:10 BP 113 / 77; Pulse 65; Resp 24; Temp 98.2; Pulse Ox 95% on 3 lpm NC; rr5 17:27 Body Mass Index 25.38 (82.55 kg, 180.34 cm) ll1 ED Course: 17:22 Patient arrived in ED. ag5 17:27 Triage completed. ll1 17:27 Arm band placed on. ll1 17:33 Bill Mandujano PA is PHCP. cp 17:33 Bill Chapa MD is Attending Physician. cp 18:07 Lisa Goldstein RN is Primary Nurse. ph 18:15 Initial lab(s) drawn, by me, sent to lab. First set of blood cultures drawn by me. dh3 Inserted saline lock: 20 gauge in right antecubital area, using aseptic technique. Blood collected. 18:20 Second set of blood cultures drawn by me. dh3 18:30 EKG done, by ED staff, reviewed by Bill OVERTON. dh3 18:44 XRAY Chest (1 view) In Process Unspecified. EDMS 18:53 Patient has correct armband on for positive identification. Bed in low position. Call ph light in reach. Side rails up X 1. Pulse ox on. NIBP on. Door closed. Noise minimized. Warm blanket given. 19:20 Warm blanket given. dh3 19:48 Initiated transfer with Felicity at [facility]. Felicity spoke with the provider. tt3 20:00 Notified Nurse Practitioner and/or Physician Barrel Header of a critical lab result(s), bb COVID positive Bill OVERTON notified. 20:13 Felicity Casanova called with Dr. Tinoco for the provider. tt3 20:34 Felicity Casanova called with administrative approval. Dr. Tinoco accepted the patient tt3 at 20:19. The patient is going to [address]. Report to be called to . Face sheet to be faxed to per Felicity's request. 21:55 No provider procedures requiring assistance completed. Patient transferred, IV remains ea in place. Administered Medications: 18:30 Drug: NS 0.9% 500 ml Route: IV; Rate: bolus; Site: right antecubital; ph 19:50 Follow up: IV Status: Completed infusion; IV Intake: 500ml ea 19:18 Drug: Decadron - Dexamethasone 10 mg Route: IVP; Site: right antecubital; rr5 20:00 Follow up: Response: No adverse reaction ea 19:21 Drug: Rocephin 1 grams Route: IV; Rate: calculated rate; Site: right antecubital; rr5 19:50 Follow up: Response: No adverse reaction; IV Status: Completed infusion ea 19:26 Dru mg of (Zithromax 500 mg, NS 0.9% 250 ml) Route: IVPB; Infused Over: 1 hrs; rr5 Site: right antecubital; 20:38 Drug: Magnesium Sulfate 1 grams Route: IVPB; Infused Over: 1 hrs; Site: right rr5 antecubital; 21:57 Follow up: Response: No adverse reaction; IV Status: Completed infusion ea Intake: 19:50 IV: 500ml; Total: 500ml. ea Outcome: 19:37 ER care complete, transfer ordered by . leana 20:00 Instructed on the need for transfer, Demonstrated understanding of instructions. ea 21:55 Transferred by ground EMS to [facility], Transfer form completed. ea X-rays sent w/ patient. 21:55 Condition: stable 21:56 Patient left the ED. ea Signatures: Dispatcher [employer] EDMS Tara Parada RN Lisa Ramesh RN RN Bill Davis, TIAN PA Jenn Davis 3 Vicky Sanchez RN RN ea Roque, Raymond RN RN rr5 Markel Silveira 5 Lesly Lester RN RN ll1 Roberto Stout tt3 Corrections: (The following items were deleted from the chart) 17:36 17:27 Chief complaint: Patient states: Fever, diarrhea, no appetite for 1 week. SOB ll1 with exertion and weakness for 3 days. Fever 101.4 at home. ll1 17:36 17:27 Coronavirus screen: Client denies travel out of the [place] in the last 14 days. ll1 chills, cough unrelated to allergies, diarrhea, fatigue, fever, Client presents with at least one sign or symptom that may indicate coronavirus-19. Standard/surgical mask placed on the client. ll1 21:14 19:26 BP 106 / 68; Pulse 65bpm; Resp 19bpm; Pulse Ox 98%; Temp 98F; Pain 0/10; rr5 rr5
[2019-12-20] MEDS ORDERED: MAGNESIUM SULFATE 1 gm IVPB 1 GM/100 ML BAG IV ONE (19:47)
== END 2019-12-20 21:56 | disposition short-term general hospital (02) ==
LOC: ER 17:21
DX: U07.1 COVID-19 (principal); J16.8 Pneumonia due to other specified infectious organisms; I10 Essential (primary) hypertension; Z94.0 Kidney transplant status
CPT/HCPCS: 96365; 96367; 96361; 93005; 87040 ×2; 87070; 85025; 80048; 36415; 83735; 85610; 85379; 80076; 87081; 83605; 84484; 84145; 83880; 87804 ×2; 71045; 96375; 99285; U0003; J0456; J3475; J1100; J0696; J7050; J7040

== ENCOUNTER 2024-08-23 01:12 | Inpatient (IN) | payer OTHER ==
[2024-08-23] MEDS ORDERED: ONDANSETRON 4 MG/2 ML VIAL ONE (01:38)
[2024-08-23] MEDS ORDERED: NA CHLORIDE 0.9% 500 ML ONE ×2 (01:38→03:48)
[2024-08-23 02:17] LABS: PT Prothrombin Time 13.5 SECONDS (10-13.0); PTT, Activated Partial Thromb 31.9 SECONDS (27.2-37.4); Protime INR 1.19
[2024-08-23 02:18] LABS: Absolute Lymphocytes (CBC) 1.2 K/uL (0.7-4.9); Absolute Monocytes 0.6 K/uL (0.1-1.3); Absolute Neutrophil 10.7 K/uL (1.8-8.0); Basophils % 0.3 % (0-1.3); Eosinophils % 0.2 % (0-4.4); Hematocrit 52.5 % (39.6-49.0); Hemoglobin 17.6 g/dL (13.6-17.9); Lymphocytes % 9.5 % (15.3-44.8); MCH 29.6 pg (27.0-35.0); MCHC 33.6 g/dL (32.0-36.0); MCV 88.1 fL (80-100); MPV 9.8 fL (7.6-11.3); Monocytes % 4.9 % (3.3-12.3); Neutrophils % 85.1 % (41.7-73.7); Nucleated Red Blood Cells % 0.2 % (0-0); Platelets 215 thou/uL (152-406); RBC Red Blood Cell Count 5.96 M/uL (4.33-5.43); Red Cell Distribution Width 14.4 % (12.1-15.2)
[2024-08-23 02:26] LABS: Albumin 3.9 g/dL (3.4-5.0); Albumin/Globulin Ratio 0.7 (1.1-1.8); Anion Gap 13.3 mEq/L (5.0-15.0); Bilirubin Total 0.6 mg/dL (0.2-1.0); Globulin 5.3 g/dL (2.3-3.5); Potassium 4.3 mEq/L (3.5-5.1); Protein, Total 9.2 g/dL (6.4-8.2)
[2024-08-23] MEDS ORDERED: NA CHLORIDE 0.9% 100 ML ONE (03:48)
[2024-08-23] MEDS ORDERED: PIPERACIL/TAZO 3.375 GM VIAL IV ONE (03:49)
--- NOTE | 2024-08-23 04:17 | EDPHYS ---
Physician Documentation [facility] Name: Aaron Curry Age: 69 yrs Sex: Male : 1955 Arrival Date: 08/23/2024 Time: 01:12 Bed 17 Private MD: ED Physician [facility] HPI: 08/23 01:36 This 69 yrs old Male presents to ER via Unassigned with complaints of Diarrhea.rn 01:36 The patient presents to the emergency department with nausea, vomiting, diarrhea. rn Onset: The symptoms/episode began/occurred 1 week(s) ago. Severity of symptoms: At their worst the symptoms were moderate in the emergency department the symptoms are unchanged. The patient has not experienced similar symptoms in the past. Historical: - Allergies: 01:48 No Known Allergies; ha1 - PMHx: 01:48 Hypertension; ha1 - PSHx: 01:48 KIDNEY TRANSPLANT 2016 (2016); ha1 - Immunization history:: Adult Immunizations up to date. - Infectious Disease History:: Denies. - Family history:: not pertinent. - Social history:: Smoking status: Patient denies any tobacco usage or history of. - Hospitalizations: : No recent hospitalization is reported. ROS: 01:36 Constitutional: Negative for fever, chills, and weight loss, Cardiovascular: Negative rn for chest pain, palpitations, and edema, Respiratory: Negative for shortness of breath, cough, wheezing, and pleuritic chest pain, Abdomen/GI: Positive for vomiting and diarrhea, negative for abdominal pain Back: Negative for injury and pain, MS/Extremity: Negative for injury and deformity, Skin: Negative for injury, rash, and discoloration, Neuro: Positive for generalized weakness Exam: 01:36 Constitutional: This is a well developed, well nourished patient who is awake, alert, rn and in no acute distress. ENT: Dry mucous membranes Cardiovascular: Tachycardic, irregular Abdomen/GI: Soft, nontender, nondistended MS/ Extremity: Pulses equal, no cyanosis. Neuro: Awake and alert, GCS 15 Vital Signs: 01:13 BP 112 / 92; Pulse 134; Resp 19 S; Temp 98.4(O); Pulse Ox 96% on R/A; Weight 83.91 kg; ha1 Height 5 ft. 10 in. ; 02:16 BP 109 / 76; Pulse 119; Resp 17 S; Pulse Ox 94% on R/A; ha1 04:00 BP 116 / 77; Pulse 126; Resp 18 S; Pulse Ox 96% on R/A; ha1 05:00 BP 114 / 71; Pulse 119; Resp 18 S; Pulse Ox 96% on R/A; ha1 01:13 Body Mass Index 26.54 (83.91 kg, 177.8 cm) [facility] MDM: 01:13 Medical Screening Exam initiated rn 04:14 Differential diagnosis: Nonspecific abd pain, diverticulitis, viral gastroenteritis, rn gastroenteritis, Colitis, enteritis, dehydration. Data reviewed: vital signs, nurses notes, lab test result(s), radiologic studies, CT scan, and as a result, I will admit patient. Consideration of Admission/Observation Patient was admitted/placed on observation. Escalation of care including admission/observation considered. Care significantly affected by the following chronic conditions: Kidney transplant. Counseling: I had a detailed discussion with the patient and/or guardian regarding the historical points, exam findings, and any diagnostic results supporting the discharge/admit diagnosis, lab results, radiology results, the need for further work-up and treatment in the hospital. Response to treatment: the patient's symptoms have mildly improved after treatment, and as a result, I will admit patient. ED course: CT shows diarrheal state but no acute complication or surgical finding. Creatinine slightly worse compared to baseline. Patient still having nonbloody diarrhea. Heart rate has improved from 130s down to 119 with fluids, another 500 cc bolus ordered. Discussed findings with patient and request to be admitted here, does not want to be transferred just because of his kidney transplant status 10 years ago. Patient states sees transplant team regularly and has not had any complications. Compliant with his rejection medication.. 08/23 01:14 Order name: CBC with Diff; Complete Time: 04:48 rn 08/23 01:14 Order name: CMP; Complete Time: 02:35 rn 08/23 01:14 Order name: Lipase; Complete Time: 02:35 rn 08/23 01:14 Order name: Blood Culture Adult (2) rn 08/23 01:14 Order name: Lactate w/ 2H reflex if indic.; Complete Time: 03:27 rn 08/23 01:14 Order name: Protime (+inr); Complete Time: 02:35 rn 08/23 01:14 Order name: Ptt, Activated; Complete Time: 02:35 rn 08/23 02:27 Order name: Manual Differential; Complete Time: 04:48 EDMS 08/23 02:44 Order name: Ghost Lactate-NO COLLECT Timer; Complete Time: 04:48 EDMS 08/23 04:59 Order name: Lactate w/ 2H reflex if indic. EDMS 08/23 04:59 Order name: Magnesium EDMS 08/23 04:59 Order name: NT PRO-BNP EDMS 08/23 04:59 Order name: Phosphorus EDMS 08/23 04:59 Order name: Basic Metabolic Panel EDMS 08/23 04:59 Order name: Basic Metabolic Panel EDMS 08/23 04:59 Order name: CBC with Automated Diff EDMS 08/23 04:59 Order name: CBC with Automated Diff EDMS 08/23 04:59 Order name: Lipid Profile EDMS 08/23 04:59 Order name: Lipid Profile EDMS 08/23 04:59 Order name: Procalcitonin EDMS 08/23 05:28 Order name: C.difficile GDH Ag EDMS 08/23 05:28 Order name: Fecal Leukocyte Stain EDMS 08/23 05:28 Order name: Ova and Parasites EDMS 08/23 05:31 Order name: Lactate Sepsis 2 HR Follow-up EDMS 08/23 02:53 Order name: Abdomen ; Complete Time: 04:48 EDSD 08/23 01:14 Order name: EKG; Complete Time: 01:15 rn 08/23 01:14 Order name: IV Saline Lock; Complete Time: 01: rn 08/23 01:14 Order name: Labs collected and sent; Complete Time: : rn 08/23 01:14 Order name: Accucheck; Complete Time: 02:05 rn 08/23 01:14 Order name: Cardiac monitoring; Complete Time: : rn 08/23 01:14 Order name: EKG - Nurse/Tech; Complete Time: : rn 08/23 01:14 Order name: IV Saline Lock - Large Bore; Complete Time: : rn 08/23 01:14 Order name: O2 Per Protocol; Complete Time: : rn 08/23 01:14 Order name: O2 Sat Monitoring; Complete Time: : rn 08/23 01:14 Order name: Vital Signs; Complete Time: 01:43 rn Administered Medications: 01:43 Drug: NS 0.9% IV 500 ml 500 ml IV at 1 bolus once; to be given as a bolus over 30 ha1 minutes Volume: 500 ml; Route: IV; Rate: 1 bolus; Site: right antecubital; 03:00 Follow up: Response: No adverse reaction; IV Status: Completed infusion; IV Intake: ha1 500ml 01:43 Drug: Ondansetron IVP 4 mg IVP once; over 2 minutes Route: IVP; Site: right antecubital;ha1 02:00 Follow up: Response: No adverse reaction; Marked relief of symptoms; Nausea is decreasedha1 03:58 Drug: Piperacillin-Tazobactam IVPB 3.375 grams IVPB once over 60 mins; (mix in NS 100 ha1 mL) Route: IVPB; Infused Over: 60 mins; Site: right antecubital; 05:00 Follow up: Response: No adverse reaction; IV Status: Completed infusion ha1 03:59 Drug: NS 0.9% IV 500 ml 500 ml IV at 1 bolus once; to be given as a bolus over 30 ha1 minutes Volume: 500 ml; Route: IV; Rate: 1 bolus; Site: right antecubital; 05:23 Follow up: Response: No adverse reaction; IV Status: Completed infusion; IV Intake: ha1 500ml Disposition Summary: 08/23/24 04:16 Hospitalization Ordered Notes: Hospitalization Status: Inpatient Admission rn Provider: Prince Bre [facility]n [facility] Condition: Stable rn Problem: new rn Symptoms: have improved rn Bed/Room Type: Standard rn Room Assignment: 408(08/23/24 05:19) rv1 Diagnosis - Diarrhea, unspecified rn - Weakness rn - Dehydration rn Forms: - Medication Reconciliation Form rn - SBAR form rn - Leadership Thank You Letter rn Signatures: Dispatcher [employer] EDTejas Easton MD MD rn Ayala, Heidy, RN RN ha1 Maria Fernanda Reynolds rv1 Corrections: (The following items were deleted from the chart) 02:53 01:15 Abdomen Pelvis W Con+CT.RAD.BRZ ordered. EDSD EDMS 05:19 04:16 rn rv1
--- NOTE | 2024-08-23 04:17 | ER ---
Nurse's Notes [facility] Name: Aaron Curry Age: 69 yrs Sex: Male : 1955 Arrival Date: 08/23/2024 Time: 01:12 Bed 17 Private MD: Diagnosis: Diarrhea, unspecified;Weakness;Dehydration Presentation: 08/23 01:13 Chief complaint: EMS states: DIARRHEA FOR THE PAST TWO DAYS. NAUSEA AND VOMITING ha1 STARTED TODAY. 01:13 Coronavirus screen: Client denies travel out of the [place] in the last 14 days. Ebola ha1 Screen: No symptoms or risks identified at this time. Initial Sepsis Screen: Does the patient meet any 2 criteria? No. Patient's initial sepsis screen is negative. Does the patient have a suspected source of infection? No. Patient's initial sepsis screen is negative. Risk Assessment: Do you want to hurt yourself or someone else? Patient reports no desire to harm self or others. Onset of symptoms was August 23, 2024. 01:13 Method Of Arrival: EMS: [facility] ha1 01:13 Acuity: MARIS 3 ha1 Triage Assessment: 01:13 General: Appears uncomfortable, ill, Behavior is cooperative. Pain: Denies pain. Neuro: ha1 Level of Consciousness is awake, alert, obeys commands, Oriented to person, place, time, situation. Cardiovascular: Capillary refill < 3 seconds Patient's skin is warm and dry. Respiratory: Airway is patent Respiratory effort is even, unlabored, Respiratory pattern is regular, symmetrical. GI: Abdomen is round non-distended, Bowel sounds present X 4 quads. Reports diarrhea, nausea, vomiting. : No signs and/or symptoms were reported regarding the genitourinary system. Derm: Skin is pink, warm \T\ dry. Musculoskeletal: Circulation, motion, and sensation intact. Range of motion: intact in all extremities. Historical: - Allergies: 01:48 No Known Allergies; ha1 - PMHx: 01:48 Hypertension; ha1 - PSHx: 01:48 KIDNEY TRANSPLANT 2016 (2016); ha1 - Immunization history:: Adult Immunizations up to date. - Infectious Disease History:: Denies. - Family history:: not pertinent. - Social history:: Smoking status: Patient denies any tobacco usage or history of. - Hospitalizations: : No recent hospitalization is reported. Screenin:17 [facility] ED Fall Risk Assessment (Adult) History of falling in the last 3 months, ha1 including since admission No falls in past 3 months (0 pts) Confusion or Disorientation No (0 pts) Intoxicated or Sedated No (0 pts) Impaired Gait Yes (1 pt) Mobility Assist Device Used Yes (1 pt) Altered Elimination No (0 pt) Score/Fall Risk Level 0 - 2 = Low Risk Oriented to surroundings, Maintained a safe environment, Educated pt \T\ family on fall prevention, incl call for assistance when getting out of bed, Hourly rounding (assess needs \T\ fall precautionary measures) done. Abuse screen: Denies threats or abuse. Denies injuries from another. Nutritional screening: No deficits noted. Tuberculosis screening: No symptoms or risk factors identified. Assessment: 01:13 Reassessment: SEE TRIAGE ASSESSMENT. ha1 02:16 Reassessment: Patient and/or family updated on plan of care and expected duration. Pain ha1 level reassessed. Patient is alert, oriented x 3, equal unlabored respirations, skin warm/dry/pink. 03:00 Reassessment: Patient and/or family updated on plan of care and expected duration. Pain ha1 level reassessed. Patient is alert, oriented x 3, equal unlabored respirations, skin warm/dry/pink. Patient states feeling better. Patient states symptoms have improved. 04:10 Reassessment: Patient and/or family updated on plan of care and expected duration. Pain ha1 level reassessed. Patient is alert, oriented x 3, equal unlabored respirations, skin warm/dry/pink. 05:00 Reassessment: Patient and/or family updated on plan of care and expected duration. Pain ha1 level reassessed. Patient is alert, oriented x 3, equal unlabored respirations, skin warm/dry/pink. Vital Signs: 01:13 BP 112 / 92; Pulse 134; Resp 19 S; Temp 98.4(O); Pulse Ox 96% on R/A; Weight 83.91 kg; ha1 Height 5 ft. 10 in. ; 02:16 BP 109 / 76; Pulse 119; Resp 17 S; Pulse Ox 94% on R/A; ha1 04:00 BP 116 / 77; Pulse 126; Resp 18 S; Pulse Ox 96% on R/A; ha1 05:00 BP 114 / 71; Pulse 119; Resp 18 S; Pulse Ox 96% on R/A; ha1 01:13 Body Mass Index 26.54 (83.91 kg, 177.8 cm) ha1 ED Course: 01:13 Patient arrived in ED. [id number] 01:[address] MD is Attending Physician. rn 01:13 Patient has correct armband on for positive identification. Placed in gown. Bed in low ha1 position. Call light in reach. Side rails up X 1. Adult w/ patient. Client placed on continuous cardiac and pulse oximetry monitoring. NIBP monitoring applied. county nurse on. 01:13 Provided Education on: PLAN OF CARE. ha1 01:13 Arm band placed on right wrist. ha1 01:32 Inserted saline lock: 20 gauge in left antecubital area, using aseptic technique. Blood ha1 collected. Flushed with 10 mL NS. 01:43 Ella Patel, NARGIS is Primary Nurse. ha1 01:43 Blood Culture Adult (2) Sent. ha1 01:43 Lactate w/ 2H reflex if indic. Sent. ha1 01:43 Protime (+inr) Sent. ha1 01:43 Ptt, Activated Sent. ha1 01:44 CBC with Diff Sent. ha1 01:44 CMP Sent. ha1 01:44 Lipase Sent. ha1 01:48 Triage completed. ha1 02:53 Abdomen In Process Unspecified. EDMS 04:15 Prince Díaz MD is Hospitalizing Provider. rn 06:12 No provider procedures requiring assistance completed. Patient admitted, IV remains in ha1 place. Administered Medications: 01:43 Drug: NS 0.9% IV 500 ml 500 ml IV at 1 bolus once; to be given as a bolus over 30 ha1 minutes Volume: 500 ml; Route: IV; Rate: 1 bolus; Site: right antecubital; 03:00 Follow up: Response: No adverse reaction; IV Status: Completed infusion; IV Intake: ha1 500ml 01:43 Drug: Ondansetron IVP 4 mg IVP once; over 2 minutes Route: IVP; Site: right antecubital;ha1 02:00 Follow up: Response: No adverse reaction; Marked relief of symptoms; Nausea is decreasedha1 03:58 Drug: Piperacillin-Tazobactam IVPB 3.375 grams IVPB once over 60 mins; (mix in NS 100 ha1 mL) Route: IVPB; Infused Over: 60 mins; Site: right antecubital; 05:00 Follow up: Response: No adverse reaction; IV Status: Completed infusion ha1 03:59 Drug: NS 0.9% IV 500 ml 500 ml IV at 1 bolus once; to be given as a bolus over 30 ha1 minutes Volume: 500 ml; Route: IV; Rate: 1 bolus; Site: right antecubital; 05:23 Follow up: Response: No adverse reaction; IV Status: Completed infusion; IV Intake: ha1 500ml Medication: 02:18 VIS not applicable for this client. ha1 Intake: 03:00 IV: 500ml; Total: 500ml. ha1 05:23 IV: 500ml; Total: 1000ml. ha1 Outcome: 04:16 Decision to Hospitalize by Provider. rn 06:12 Admitted to Tele accompanied by tech, via stretcher, room 408, with chart, ha1 06:12 Condition: stable 06:12 Instructed on the need for admit, Demonstrated understanding of instructions, 06:13 Patient left the ED. ha1 Signatures: Dispatcher [employer] EDTejas Easton MD MD rn Jeffries, Jennifer jj6 Ayala, Heidy RN RN ha1
--- NOTE | 2024-08-23 04:18 | RAD REPORT ---
EXAM: CT Abdomen and Pelvis Without Intravenous Contrast CLINICAL HISTORY: diarrhea TECHNIQUE: Axial computed tomography images of the abdomen and pelvis without intravenous contrast. Sagittal a nd coronal reformatted images were created and reviewed. This CT exam was performed using one or more of the following dose reduction techniques: automated exposure control, adjustment of the mA a nd/or kV according to patient size, and/or use of iterative reconstruction technique. COMPARISON: No relevant prior studies available. FINDINGS: Lung bases: Unremarkable. No mass. No consolidation. ABDOMEN: Liver: Scattered hepatic cysts. Gallbladder and bile ducts: There has been a cholecystectomy. No ductal dilation. Pancreas: Mild pancreatic parenchymal atrophy. No ductal dilation. Spleen: Unremarkable. No splenomegaly. Adrenals: Unremarkable. No mass. Kidneys and ureters: Prior bilateral nephrectomy. Right lower quadrant renal transplant. No hydrone phrosis. Stomach and bowel: Small and large bowel diverticula without adjacent inflammatory change. Small an d large bowel air-fluid levels. No appreciable mucosal thickening. No obstruction. PELVIS: Appendix: Pericecal suture material suggestive of prior appendectomy. Bladder: The urinary bladder is decompressed. No stones. Reproductive: The prostate is mildly enlarged. ABDOMEN and PELVIS: Intraperitoneal space: Unremarkable. No free air. No significant fluid collection. Bones/joints: Multilevel spondylosis. No acute fracture. No dislocation. Soft tissues: Unremarkable. Vasculature: Severe atherosclerotic disease. No abdominal aortic aneurysm. Lymph nodes: Unremarkable. No enlarged lymph nodes. IMPRESSION: 1. Nonspecific small and large bowel air-fluid levels which can be seen in the clinical setting of diarrhea. No appreciable mucosal thickening. 2. Other findings as above. Electronically signed by: Osmar Jones MD 08/23/2024 03:58 AM [facility] Due to temporary technical issues with the PACS/Vir-[employer] reporting system, reports are being donald d by the in-house radiologist without review as a courtesy to ensure prompt reporting the interpreting radiologist is fully responsible for the content of the report. Transcribed Date/Time: 08/23/2024 4:18 AM
[2024-08-23 04:21] LABS: Band Neutrophils 33 % (0-1); Differential Total Cells Count 100; Lymphocytes 9 % (15-42); Monocytes 3 % (0-10); Reactive Lymphocytes 7 %; Segmented Neutrophils 48 % (40-80)
[2024-08-23 04:22] LABS: Blood Morphology Comment NOT SEEN (NOT SEEN); Platelet Estimate ADEQ
[2024-08-23] MEDS ORDERED: ACETAMINOPHEN 500 MG TAB PO PRN (04:55)
[2024-08-23] MEDS: NA CHLORIDE 0.9% 1,000 ML IV SCH ×2 (05:00→06:39)
[2024-08-23] MEDS: CEFEPIME 1 GM in NA CHLORIDE 0.9% 100 ML IV SCH ×2 (05:27→08:21)
--- NOTE | 2024-08-23 05:27 | P.HP ---
Certification for Inpatient Patient admitted to: Inpatient With expected LOS: >2 Midnights Practitioner: I am a practitioner with admitting privileges, knowledge of patient current condition, hospital course, and medical plan of care. Services: Services provided to patient in accordance with Admission requirements found in Title 42 Section 412.3 of the Code of Federal Regulations Patient History Date of Service: 08/23/24 Reason for admission: WILBERTO, diarrhea History of Present Illness: Patient is a 69 year old male currently immunocompromised. He has a hx of HTN, ESRD s/p renal transplant in 2016 at [facility]. He presents with a 2-week history of progressively worsening diarrhea. He is describing a water, non-bloody diarrhea that has become more frequent recently. Associated symptoms include generalized weakness, dizziness and dehydration. Work up in the ER is concerning for enteritis, diarrheal disease. He has a Cr of 2.68. Baseline Cr seems to be 1.4 to 1.9. Allergies No Known Drug Allergies Allergy (Unverified 05/14/14 20:34) Unknown Physical Examination - Physical Exam General: Acute distress HEENT: Atraumatic, Normocephalic Respiratory: Other (speaking in full sentences) Cardiovascular: No edema Neurological: Normal speech - Studies Laboratory Data (last 24 hrs) 08/23/24 08/23/24 08/23/24 01:30 01:30 01:30 WBC 12.60 H Hgb 17.6 Hct 52.5 H Plt Count 215 PT 13.5 H INR 1.19 APTT 31.9 Sodium 135 L Potassium 4.3 BUN 43 H Creatinine 2.68 H Glucose 144 H Total Bilirubin 0.6 AST 12 L ALT 22 Alkaline Phosphatase 115 Lipase 30 Assessment and Plan - Problems (Diagnosis) (1) Diarrheal disease Current Visit: Yes Status: Acute (2) Acute worsening of stage 3 chronic kidney disease Current Visit: Yes Status: Acute (3) Renal transplant, status post Current Visit: Yes Status: Acute - Plan Assessment Patient is a 69 year old male with a PMH of HTN, ESRD S/P renal transplant in 2015. He is being admitted for acute diarrheal disease after he presented with worsening non-bloody diarrhea. Acute diarrheal disease Acute on chronic CKD stage III HTN PLAN: Will admit inpatient with telemetry Start aggressive volume repletion Stool work up including C. difficile, ova/parasites Empiric abx coverage due to immunocompromised state Renal US to eavlaute transplant kidney Avoid nephrotoxins Nephrology consult Consider GI consult for COL if diarrhea persists Resume rest of home medications upon reconciliation - Advance Directives Does patient have a Living Will: No Does patient have a Durable POA for Healthcare: No
[2024-08-23] MEDS: METRONIDAZOLE 500mg IVPB 500 MG/100 ML BAG IV SCH (06:38)
[2024-08-23 07:58] LABS: Magnesium 1.3 mg/dL (1.6-2.4); Phosphorus 3.2 mg/dL (2.5-4.9)
[2024-08-23 08:03] VITALS: BMI 26.5
[2024-08-23] MEDS: ONDANSETRON 4 MG/2 ML VIAL IV PRN (08:21)
[2024-08-23] MEDS: HEPARIN 5000 UNIT/ML 1 ML VIAL SQ SCH (08:21)
[2024-08-23 08:22] LABS: STOOL CONSISTENCY Liquid/Semi-Solid
[2024-08-23 08:23] LABS: C.diff Antigen/Toxin Ag neg : Tox neg (NEG : NEG); CDIFF INTERNAL NEG CONTROL White Background (WHITE BKGD)
--- NOTE | 2024-08-23 08:31 | RAD REPORT ---
EXAMINATION: US RENAL CLINICAL INDICATION: Acute renal insufficiency TECHNIQUE: Real-time ultrasonography of the kidneys performed. COMPARISON: August 23, 2024 CT. FINDINGS: Bilateral nephrectomies. Transplant kidney right pelvis. The kidney measures 11 cm. No hydronephrosis. Echotexture appears nor mal. No gross abnormality bladder.. Enlargement of the prostate gland IMPRESSION: Bilateral nephrectomies No abnormality of the transplant kidney visualized
[2024-08-23] MEDS: SODIUM BICARB 325 MG TAB PO SCH (20:52)
--- NOTE | 2024-08-24 02:55 | CON ---
Date of Consultation: 08/23/2024 Chief Complaint: Acute kidney injury and diarrhea. Subjective: The patient has history of end-stage renal disease, status post renal transplant in 2016 at [facility] in [place]. He presented to the hospital because of 2 weeks history of progressively worsening diarrhea. He described several nonbloody, watery bowel movements and generalized abdominal pain. Denies melena, hematemesis, nausea, vomiting. Denies dysuria, hematuria. He had generalized weakness, dizziness, and volume depletion. He had decreased p.o. intake and decided to come to the hospital. Serum creatinine level was 2.6, baseline creatinine level 1.4. The patient is started on IV fluids. Blood pressure remained stable. Review of Systems: Constitutional: Denies fevers, chills. Eyes: Denies vision changes. Ears, Nose, Mouth, and Throat: Denies sore throat, earache. Respiratory: Denies PND, orthopnea. Cardiovascular: Denies syncope. GI: Denies nausea, vomiting. He had loose bowel movement. Denies melena, hematemesis. All other system reviewed and all are negative. Past Medical History: Status post renal transplant, hypertension, anemia, CKD, renal osteodystrophy, hypertensive heart and kidney disease. Social History: Denies tobacco, alcohol. Denies drugs. Family History: No kidney disease in family. Physical Examination: General: The patient is awake, alert. Follows commands. Eyes: Anicteric sclerae. EOMI. Ears, Nose, Mouth, and Throat: Oral mucosa moist. No pallor. Neck: Supple. No bruits. Lungs: Diminished breath sounds at bases. Heart: S1, S2. Abdomen: Soft. No rebound. No guarding. Extremities: No edema. No clubbing. No cyanosis. Laboratory Data: Sodium 145, potassium 4.3, BUN 43, creatinine 2.68, glucose 144. Total bilirubin 0 .6, AST 12, ALT 22, AP 115. Lipase 30. Impression And Plan: 1. Acute kidney injury secondary to prerenal azotemia, possible acute tubular necrosis. Continue to monitor urine output. Continue IV fluids. The patient is on anti-rejection medication. Resume medi cation and continue to monitor tacrolimus level. 2. Diarrhea. Workup is pending and order by primary team. 3. Hypertension. Continue blood pressure medication. Hold FANNIE inhibitor. 4. Renal function is declining. Plan is to re-evaluate lab work in the morning. 5. Hyponatremia due to acute kidney injury. Continue normal saline. EB/MODL Voice ID: [id number] Report ID: [id number]
[2024-08-24 06:15] LABS: Absolute Lymphocytes (CBC) 0.8 K/uL (0.7-4.9); Absolute Monocytes 0.9 K/uL (0.1-1.3); Absolute Neutrophil 7.7 K/uL (1.8-8.0); Basophils % 0.4 % (0-1.3); Eosinophils % 0.3 % (0-4.4); Hematocrit 43.6 % (39.6-49.0); Hemoglobin 14.7 g/dL (13.6-17.9); Lymphocytes % 8.8 % (15.3-44.8); MCHC 33.8 g/dL (32.0-36.0); MPV 9.5 fL (7.6-11.3); Monocytes % 9.3 % (3.3-12.3); Neutrophils % 81.2 % (41.7-73.7); Platelets 153 thou/uL (152-406); Red Cell Distribution Width 14.5 % (12.1-15.2)
[2024-08-24 06:45] LABS: Anion Gap 12.1 mEq/L (5.0-15.0); Potassium 4.1 mEq/L (3.5-5.1)
[2024-08-24] MEDS: CINACALCET HCL 30 MG TAB PO SCH (08:56)
[2024-08-24] MEDS: NIFEDIPINE XL 60 MG TABLET PO SCH (08:56)
[2024-08-24] MEDS: METOPROLOL XL 25 MG TAB PO SCH (08:57)
[2024-08-24] MEDS ORDERED: CINACALCET HCL 90 MG PO SCH (09:00)
[2024-08-24] MEDS: TACROLIMUS 0.5 MG PO SCH (09:00)
[2024-08-24] MEDS: MYCOPHENOLATE MOFETIL 500 MG PO SCH (09:00)
[2024-08-24] MEDS: Ringers Lactate 1,000 ML IV SCH (11:43)
--- NOTE | 2024-08-24 11:46 | PN ---
Date of Progress Note: 08/24/2024 Subjective: The patient is a 69-year-old gentleman, end-stage renal disease, status post disease donor kidney transplant back in 2018, maintained on Prograf mg b.i.d., CellCept 500 mg b.i.d. The patient came with gastroenteritis with acute kidney injury. Upon arrival to the hospital, the patient's creatinine was 2.6, currently creatinine down to 2.3 with hydration. According to the patient back in May visit with his resource technician, his GFR usually around 36. The patient complaining from hiccup today. Physical Examination: Vital Signs: Blood pressure 135/71, pulse of 93, afebrile. The patient had still loose stool. Chest: Clear to auscultation. Heart: S1, S2. Regular. Abdomen: Soft. No tenderness. No guarding. Bowel sound appreciated. Extremities: No edema. Neurologic: Alert. No focality. No tremor. Laboratory Data: WBC 9.4, hemoglobin 14.7 trending down from 17.6, platelets 153. Sodium 139, potassium 4.1, bicarb 16, BUN 42, creatinine 2.3. Calcium 8.8, GFR of 30. CT abdomen and pelvis was done, bilateral nephrectomy with right lower quadrant transplant, no hydronephrosis, supported with renal ultrasound. Current Medications: The patient on include cefepime, metronidazole, metoprolol, nifedipine, sodium bicarb 650 b.i.d., IV fluids, mycophenolate b.i.d., tacrolimus 2 mg b.i.d. Assessment And Plan: 1. Acute kidney injury secondary to prerenal, improving almost back, close to his baseline. I am going to continue hydration given the acidosis. I am going to go ahead and change IV fluid to LR and will follow up the patient. 2. Acidosis secondary to renal failure superimposed with IV fluid. We will change IV fluid to LR as above and we will follow up the patient. 3. Kidney transplant with acute kidney injury as above. I will follow up on tacro level. 4. Colitis. Continue current antibiotic dose, appropriate with kidney function. 5. Hyponatremia secondary to depletional. We will continue hydration. Time spent examining the patient [id number] reviewing that the lab and the radiology placing order discussing the case with the patient discussing the case with the [place] including hospitalist and nursing staff more than 55 minutes MELODIE Voice ID: [id number] Report ID: [id number] JESÚS
--- NOTE | 2024-08-24 12:56 | P.PN ---
Date of Service: 08/24/24 Subjective: He wants to try to eat more solid food today. He is having a lot of hiccups. Sodium level improved. Denies any new issues. Restarted graft medication Review of Systems: As per HPI: Diarrhea, hiccups 10 point review of systems otherwise negative Allergies No Known Drug Allergies Allergy (Unverified 05/14/14 20:34) Unknown Physical Examination - Physical Exam General: Acute distress HEENT: Atraumatic, Normocephalic Respiratory: Other (speaking in full sentences) Cardiovascular: No edema Neurological: Normal speech - Studies Laboratory Data (last 24 hrs) 08/23/24 08/23/24 08/23/24 01:30 01:30 01:30 WBC 12.60 H Hgb 17.6 Hct 52.5 H Plt Count 215 PT 13.5 H INR 1.19 APTT 31.9 Sodium 135 L Potassium 4.3 BUN 43 H Creatinine 2.68 H Glucose 144 H Total Bilirubin 0.6 AST 12 L ALT 22 Alkaline Phosphatase 115 Lipase 30 Assessment and Plan - Problems (Diagnosis) (1) Diarrheal disease Current Visit: Yes Status: Acute (2) Acute worsening of stage 3 chronic kidney disease Current Visit: Yes Status: Acute (3) Renal transplant, status post Current Visit: Yes Status: Acute - Plan Assessment Patient is a 69 year old male with a PMH of HTN, ESRD S/P renal transplant in 2015. He is being admitted for acute diarrheal disease after he presented with worsening non-bloody diarrhea. Acute diarrheal disease Acute on chronic CKD stage III HTN Intractable hiccups PLAN: Continue IV hydration with lactated Ringer's Stool work up including C. difficile, ova/parasites pending Leukocytosis resolved Continue cefepime and Flagyl Renal ultrasound reviewed Avoid nephrotoxins Appreciate nephrology recommendations Resume rest of home medications Trial Thorazine for hiccups - Advance Directives Does patient have a Living Will: No Does patient have a Durable POA for Healthcare: No
[2024-08-24] MEDS: SODIUM BICARB 325 MG TAB PO SCH (12:57)
[2024-08-24] MEDS: CHLORPROMAZINE 25 MG TAB PO SCH (20:24)
[2024-08-24 22:45] LABS: UR PROTEIN 66.8 mg/dL (<11.9); Urine Protein/Creatinine Ratio 0.31 ratio (<0.15)
[2024-08-25 06:26] LABS: Albumin 2.7 g/dL (3.4-5.0); Anion Gap 11.2 mEq/L (5.0-15.0); Potassium 4.2 mEq/L (3.5-5.1); Uric Acid 9.2 mg/dL (3.5-7.2)
[2024-08-25] MEDS: Ringers Lactate 1,000 ML IV ONE (08:38)
[2024-08-25] MEDS: POTASS/SODIUM PHOSPHATE 1 PKT POWD.PACK PO SCH (08:39)
[2024-08-25] MEDS: NA CHLORIDE 0.9% 1,000 ML IV ONE (09:51)
[2024-08-25] MEDS: POTASSIUM PHOS 30 MM in NA CHLORIDE 0.9% 500 ML IV ONE (10:02)
--- NOTE | 2024-08-25 11:16 | PN ---
Date of Progress Note: 08/25/2024 Subjective: The patient was admitted to the hospital with acute kidney injury secondary to gastroenteritis. The patient had transplanted kidney before, blood pressure being on the lower side. Physical Examination: Vital Signs: Blood pressure 91/54, pulse of 73, afebrile. Chest: Clear to auscultation. Heart: S1, S2 regular. Abdomen: Soft, nontender. Extremities: No edema. Neurologic: Alert. No focality. Laboratory Data: WBC 9.4, hemoglobin 14.7. Sodium 137, potassium 4.2, bicarb 15. BUN 30, creatinine down to 1.6, calcium 8.3, phosphorus 1, uric acid 9.2, albumin 2.7, corrected calcium is 9.2. Tacrolimus level still pending. PC ratio 0.3. Current Medications: The patient on include cefepime, metronidazole, nifedipine, metoprolol, Tylenol, sodium bicarb 650 t.i.d., LR 125. KCl. Assessment And Plan: 1. Acute kidney injury on transplanted kidney. Continue to recover, looked to me still on the dry side. I am going to bolus the patient with another liter of normal saline. Continue IV fluid and will follow up. 2. Hypertension, currently blood pressure on the lower side. The patient is cortisol dependent. I am going to resume hydrocortisone. Hold all blood pressure medication. We will bolus the patient. 3. Acidosis, non-anion gap metabolic acidosis secondary to renal failure/diarrhea. Continue sodium bicarb. Continue LR. 4. Hypophosphatemia. We will supplement. Time spent examining the patient [id number] reviewing that the lab and the radiology placing order discussing the case with the patient discussing the case with the teamsite developer including hospitalist and nursing staff more than 55 minutes MELODIE Voice ID: [id number] Report ID: [id number] JESÚS
--- NOTE | 2024-08-25 15:52 | P.PN ---
Date of Service: 08/25/24 Subjective: Continues to feel better slowly. States they have not given him any solid food yet.. His hiccups have resolved. Blood pressure on the lower side this morning. Denies fevers and chills. Review of Systems: As per HPI: Diarrhea, hiccups 10 point review of systems otherwise negative Allergies No Known Drug Allergies Allergy (Unverified 05/14/14 20:34) Unknown Physical Examination - Physical Exam General: Acute distress HEENT: Atraumatic, Normocephalic Respiratory: Other (speaking in full sentences) Cardiovascular: No edema Neurological: Normal speech - Studies Laboratory Data (last 24 hrs) 08/23/24 08/23/24 08/23/24 01:30 01:30 01:30 WBC 12.60 H Hgb 17.6 Hct 52.5 H Plt Count 215 PT 13.5 H INR 1.19 APTT 31.9 Sodium 135 L Potassium 4.3 BUN 43 H Creatinine 2.68 H Glucose 144 H Total Bilirubin 0.6 AST 12 L ALT 22 Alkaline Phosphatase 115 Lipase 30 Assessment and Plan - Problems (Diagnosis) (1) Diarrheal disease Current Visit: Yes Status: Acute (2) Acute worsening of stage 3 chronic kidney disease Current Visit: Yes Status: Acute (3) Renal transplant, status post Current Visit: Yes Status: Acute - Plan Assessment Patient is a 69 year old male with a PMH of HTN, ESRD S/P renal transplant in 2015. He is being admitted for acute diarrheal disease after he presented with worsening non-bloody diarrhea. Acute diarrheal disease Acute on chronic CKD stage III HTN Intractable hiccups PLAN: Continue IV hydration with lactated Ringer's C. difficile studies negative Stool work up: ova/parasites pending Advanced to soft regular food Phosphorus low. Replace Continue cefepime and Flagyl Kidney function continues to improve, avoid nephrotoxin Appreciate nephrology recommendations Resume rest of home medications Continue Thorazine for hiccups Tacrolimus level pending - Advance Directives Does patient have a Living Will: No Does patient have a Durable POA for Healthcare: No
[2024-08-25] MEDS: dexAMETHasone 10 MG/ML VIAL IV SCH (16:34)
[2024-08-26 06:32] LABS: Albumin 2.5 g/dL (3.4-5.0); Anion Gap 9.6 mEq/L (5.0-15.0); Magnesium 1.1 mg/dL (1.6-2.4); Phosphorus 1.7 mg/dL (2.5-4.9); Potassium 4.6 mEq/L (3.5-5.1)
[2024-08-26 08:06] VITALS: BP 112/66; TEMP 97.4
[2024-08-26] MEDS: Magnesium Sulfate 2gm IVPB 2 G/50 ML BAG IV ONE (09:51)
[2024-08-26] MEDS: POTASS/SODIUM PHOSPHATE 1 PKT POWD.PACK PO SCH (09:55)
[2024-08-26 10:59] VITALS: O2SAT 95
--- NOTE | 2024-08-26 11:05 | P.DS ---
Admission Date: 08/23/24 Discharge Date: 08/26/24 Disposition: DC HOME/HOME HEALTH CARE Discharge Condition: GOOD Reason for Admission: WILBERTO, diarrhea Hospital Course: Discharge diagnosis: 1. Acute diarrhea/gastroenteritis: Resolved, currently on IV antibiotics, DC home on oral antibiotics. 2. Acute on chronic CKD stage III: Secondary to dehydration from diarrhea, improved. 3. HTN: Resume home medications. 4. Intractable hiccups: Resolved. 5. Metabolic acidosis: Secondary to renal failure, started on sodium bicarb tablets by nephrology, need close follow-up with PCP. 6. Hypophosphatemia, hypomagnesemia: Replaced. Hospital course: 69 year old patient with a PMH of HTN, ESRD S/P renal transplant in 2016. He was admitted for acute diarrhea and renal failure. He was started on IV antibiotics, IV fluids, and nephrology consult requested, he has metabolic acidosis, nephrology started him on sodium bicarb tablets, his diarrhea is getting better, renal function is getting better as well, when I see the patient today he is doing well without any acute problems, he feels ready to go home, otherwise no other acute issues going on so I am planning to discharge him to go home. I discussed with supervisor in charge this morning, as he is still having acidosis, nephrology recommended to increase sodium bicarb to 1350 mg 3 times daily, advised close follow-up with PCP and nephrology later this week, his Prograf level is still pending at the time of this dictation, this needs to be monitored closely. Subjective: No chest pain or shortness of breath. No nausea or vomiting. No abdominal pain. No obvious bleeding. Looks comfortable in the bed. No diarrhea. Eating and drinking well. Objective: General appearance: Alert and comfortable CVS: Normal S1 and S2 Lungs: Clear to auscultation bilaterally Abdomen: Soft, bowel sounds present, no tenderness Extremities: No lower extremity edema Vital Signs/Physical Exam: Temp Pulse Resp BP Pulse Ox 97.4 F 72 16 112/66 95 08/26/24 08:00 08/26/24 08:00 08/26/24 08:00 08/26/24 08:00 08/26/24 08:00 Laboratory Data at Discharge: WBC 9.40 thou/uL (4.3-10.9) 08/24/24 05:39 Hgb 14.7 g/dL (13.6-17.9) 08/24/24 05:39 Hct 43.6 % (39.6-49.0) 08/24/24 05:39 Plt Count 153 thou/uL (152-406) 08/24/24 05:39 PT 13.5 SECONDS (10-13.0) H 08/23/24 01:30 INR 1.19 08/23/24 01:30 APTT 31.9 SECONDS (27.2-37.4) 08/23/24 01:30 Sodium 136 mEq/L (136-145) 08/26/24 05:53 Potassium 4.6 mEq/L (3.5-5.1) 08/26/24 05:53 BUN 25 mg/dL (7-18) H 08/26/24 05:53 Creatinine 1.53 mg/dL (0.70-1.30) H 08/26/24 05:53 Glucose 163 mg/dL (74-106) H 08/26/24 05:53 Uric Acid 9.2 mg/dL (3.5-7.2) H 08/25/24 05:34 Phosphorus 1.7 mg/dL (2.5-4.9) L 08/26/24 05:53 Magnesium 1.1 mg/dL (1.6-2.4) L 08/26/24 05:53 Total Bilirubin 0.6 mg/dL (0.2-1.0) 08/23/24 01:30 AST 12 U/L (15-37) L 08/23/24 01:30 ALT 22 U/L (16-61) 08/23/24 01:30 Alkaline Phosphatase 115 U/L (45-117) 08/23/24 01:30 Triglycerides 107 mg/dL (<150) 08/24/24 05:39 Cholesterol 110 mg/dL (<200) 08/24/24 05:39 HDL Cholesterol 29 mg/dL (40-60) L 08/24/24 05:39 Cholesterol/HDL Ratio 3.79 08/24/24 05:39 Lipase 30 U/L (13-75) 08/23/24 01:30 Home Medications: Cinacalcet HCl 90 mg PO DAILY 08/23/24 Metoprolol Succinate 1 tab PO DAILY 08/23/24 Nifedipine [Procardia Xl] 60 mg PO BID 08/23/24 Prednisone [Asuncion] 5 mg PO DAILY 08/23/24 Tacrolimus 3 tab PO BID 08/23/24 mycophenolate mofetiL [Mycophenolate Mofetil] 1 tab PO BID 08/23/24 Cefdinir [Cefdinir*] 300 mg PO BID #8 cap 08/26/24 Metronidazole 500 mg PO TID #12 tab 08/26/24 Sodium Bicarbonate 1,350 mg PO TID 30 Days #90 tab 08/26/24 New Medications: Cefdinir [Cefdinir*] 300 mg PO BID #8 cap Metronidazole 500 mg PO TID #12 tab Sodium Bicarbonate 1,350 mg PO TID 30 Days #90 tab Diet: Renal Activity: Ad len Followup: Beatris Christine MD [ACTIVE - CAN ADMIT] - 1 Week (f/u with nephrology in 1 week, prograf level needs to be followed) NONE,NONE [Primary Care Provider] - 2-3 Days (f/u with PCP in 3-5 days with CBC, mg, phos and CMP, Prograf level is still pending, PCP or transplant clinc should request level and adjust the dose) Time spent managing pt's care (in minutes): 34
[2024-08-26] MEDS ORDERED: POTASS/SODIUM PHOSPHATE 1 PKT POWD.PACK PO ONE (12:00)
--- NOTE | 2024-08-26 12:19 | EKG ---
Test Date: 2024-08-23 Test Time: 01:38:06 Skidder Operator: GLENROY MEASUREMENT RESULTS: Intervals: Rate: 126 MI: 150 QRSD: 92 QT: 304 QTc: 440 [place]: P: 42 MI: 150 QRS: -56 T: 98 INTERPRETIVE STATEMENTS: Sinus tachycardia with frequent premature ventricular complexes and fusion complexes Left anterior fascicular block Moderate voltage criteria for LVH, may be normal variant Cannot rule out Septal infarct, age undetermined ST & T wave abnormality, consider lateral ischemia Abnormal ECG Compared to ECG 12/20/2019 18:26:45 Fusion complex(es) now present Ventricular premature complex(es) now present Left anterior fascicular block now present Electronically Signed On 08-26-24 12:10:51 CDT by Kunal Shipman
--- NOTE | 2024-08-27 02:42 | PN ---
Date of Progress Note: 08/26/2024 Chief Complaint: Acute kidney injury. Subjective: The patient has history of end-stage renal disease due to polycystic kidney disease, sta tus post bilateral nephrectomy. The patient has transplanted kidney and he came to the hospital heladio use of diarrhea, abdominal pain, decreased p.o. intake. He was found to have volume depletion, was s tarted on IV fluids. Lab work revealed acute kidney injury. Serum creatinine overall is improving i n response to IV fluids. Review of Systems: Denies chest pain, palpitation. Physical Examination: Lungs: Clear to auscultation bilaterally. Heart: S1, S2. Abdomen: Soft, benign. Extremities: No edema. Impression And Plan: 1. Acute kidney injury on transplanted kidney. Continue IV fluids. The patient tolerated p.o. intak e. Plan is to continue p.o. hydration. 2. Hypertension. Blood pressure is controlled. The patient had cortisol level checked. The patient has history of treatment with steroids, likely has adrenal insufficiency. May need a stress dose hy drocortisone. 3. Acidosis, non-anion gap metabolic acidosis secondary to renal failure and diarrhea. Continue sodi um bicarbonate. Continue lactated Ringer's. 4. Hypophosphatemia. Supplementation according to lab results. 5. Kidney transplant. Tacrolimus level is pending. Continue treatment with tacrolimus as before. EB/MODL Voice ID: [id number] Report ID: [id number]
== END 2024-08-26 12:01 | disposition home or self-care (01) | DRG 699 ==
LOC: ER 01:12 → 4TH 04:55
PROVIDERS: ADMIT Internal Medicine; ATTEND Hospitalist
DX: T86.19 Other complication of kidney transplant (principal); E87.1 Hypo-osmolality and hyponatremia; N17.9 Acute kidney failure, unspecified; E87.20 Acidosis, unspecified; Q61.3 Polycystic kidney, unspecified; E86.0 Dehydration; I12.9 Hypertensive chronic kidney disease with stage 1 through stage 4 chronic kidney disease, or unspecified chronic kidney disease; N18.30 Chronic kidney disease, stage 3 unspecified; E86.9 Volume depletion, unspecified; Z94.0 Kidney transplant status; K52.9 Noninfective gastroenteritis and colitis, unspecified; E83.39 Other disorders of phosphorus metabolism; E83.42 Hypomagnesemia; R06.6 Hiccough; Z90.5 Acquired absence of kidney; Z79.52 Long term (current) use of systemic steroids; Z79.899 Other long term (current) drug therapy
CPT/HCPCS: 36415; 74176; 76770; 80048; 80053; 80061; 80069; 80197; 82330; 82533; 82550; 82565; 82570; 82947; 83605; 83690; 83735; 83880; 83970; 84100; 84145; 84156; 84550; 85025; 85610; 85730; 87040; 87177; 87209; 87324; 89055; 93005; 96361; 96365; 96375; 99285; J0692; J1100; J1644; J2405; J2543; J3475; J7030; J7040; J7120; Q0161